=== PATIENT | female | born 2000 | race Caucasian/White ===

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

== ENCOUNTER → 2018-01-02 | Outpatient (CLI) | payer OTHER ==
--- NOTE | 2018-01-02 13:20 | US ---
EXAMINATION TYPE: US pelvic complete DATE OF EXAM: 01/02/2018 COMPARISON: Pelvic ultrasound October 05, 2012 CLINICAL HISTORY: R10.30 LOWER ABD and pelvic PAIN. LLQ pain x 1 day, sharp pain, TECHNIQUE: TA, no TV per patient. Transabdominal sonographic images of the pelvis were acquired. Date of LMP: 12/26/2017 EXAM MEASUREMENTS: Uterus: 8.0 x 4.4 x 3.0 cm Endometrial Stripe: 0.7 cm Right Ovary: 3.6 x 2.6 x 2.1 cm Left Ovary: not seen Limited views due to bowel gas, patient informed her bladder was not as full as we would like it and offered to have to fill more, she declined 1. Uterus: Anteverted wnl 2. Endometrium: wnl 3. Right Ovary: 1.5cm possible involuting cyst seen 4. Left Ovary: not seen due to bowel gas 5. Bilateral Adnexa: wnl 6. Posterior cul-de-sac: wnl scanned RLQ at area of appendix and tubular structure seen was compressible, not enlarged and non v ascular. Transabdominal ultrasound shows no suspicious abnormality. Tubular shaped structure in right lower qu adrant may reflect normal-appearing appendix is felt within normal limits. IMPRESSION: Slightly suboptimal study without suspicious finding seen to account for patient's sympto ms.
[2018-01-02 13:58] LABS: Basophils # (A) 0.1 k/uL (0-0.2); Basophils % (A) 1 %; Eosinophils % (A) 0 %; HGB 14.4 gm/dL (11.4-16.0); Lymphocytes # (A) 1.8 k/uL (1.0-4.8); Lymphocytes % (A) 19 %; MCH 32.4 pg (25.0-35.0); MCHC 34.4 g/dL (31.0-37.0); MCV 94.4 fL (80.0-100.0); Mean Platelet Volume 7.2; Monocytes # (A) 0.4 k/uL (0-1.0); Monocytes % (A) 4 %; Neutrophils # (A) 7.2 k/uL (1.3-7.7); Neutrophils % (A) 75 %; Platelet Count 293 k/uL (150-450); RBC 4.45 m/uL (3.80-5.40); RDW 12.6 % (11.5-15.5); WBC 9.6 k/uL (4.0-11.0)
[2018-01-02 14:08] LABS: ALT 28 U/L (9-52); AST 16 U/L (14-36); Albumin 4.6 g/dL (3.5-5.0); Alkaline Phosphatase 71 U/L (38-126); Anion Gap 14 mmol/L; Blood Urea Nitrogen 9 mg/dL (7-17); Calcium 9.6 mg/dL (8.4-10.2); Carbon Dioxide 20 mmol/L (22-30); Chloride 109 mmol/L (98-107); Glucose 97 mg/dL (74-99); Sodium 143 mmol/L (137-145); Total Bilirubin 0.5 mg/dL (0.2-1.3); Total Protein 7.3 g/dL (6.3-8.2)
== END | disposition home or self-care (01) ==
LOC: RADUSWWP 12:05
PROVIDERS: ATTEND Family Medicine
DX: R93.5 Abnormal findings on diagnostic imaging of other abdominal regions, including retroperitoneum (principal); R10.30 Lower abdominal pain, unspecified
CPT/HCPCS: 36415; 76856; 80053; 85025

== ENCOUNTER 2018-07-18 07:42 | Outpatient (CLI) | payer OTHER ==
[2018-07-18 08:32] VITALS: BP 126/72; PULSE 97; RESP 16; TEMP 97.3
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
== END 2018-07-18 08:10 | disposition home or self-care (01) ==
LOC: FBPOP 07:42
PROVIDERS: ATTEND Obstetrics & Gynecology
DX: O26.892 Other specified pregnancy related conditions, second trimester (principal); G89.11 Acute pain due to trauma; Z3A.22 22 weeks gestation of pregnancy
CPT/HCPCS: 99213

== ENCOUNTER 2018-11-10 20:55 | Inpatient (IN) | payer OTHER ==
[~2018-11-10 20:55] MED LIST: ROPIVACAINE 5MG/ML 20ML VIAL ONE; SODIUM CHLORIDE 0.9% 100 ML BAG ONE; fentaNYL (PF) 50 MCG/ML 5 ML AMP ONE
[2018-11-10] MEDS ORDERED: OXYTOCIN 10 UNIT/ML 1 ML VIAL IM PRN (23:05)
[2018-11-10] MEDS ORDERED: METHYLERGONOVINE 0.2 MG/ML 1 ML AMP IM PRN (23:05)
[2018-11-10] MEDS ORDERED: LIDOCAINE 0.5% (PF) 5 MG/ML (50 ML SDV) SQ PRN (23:05)
[2018-11-10] MEDS ORDERED: CARBOPROST TROMETHAMINE 250 MCG/ML 1 ML AMP IM PRN (23:05)
[2018-11-10] MEDS ORDERED: TERBUTALINE 1 MG/ML VIAL SQ PRN (23:05)
[2018-11-10] MEDS ORDERED: OXYTOCIN 30 UNITS/500 ML NS 30 UNIT in SALINE 1 500ML.BAG IV SCH (23:15)
[2018-11-10 23:16] LABS: Basophils % (A) 0 %; Eosinophils # (A) 0.2 k/uL (0-0.7); Eosinophils % (A) 1 %; HCT 43.9 % (34.0-46.0); HGB 14.4 gm/dL (11.4-16.0); Lymphocytes # (A) 2.6 k/uL (1.0-4.8); Lymphocytes % (A) 15 %; MCH 30.7 pg (25.0-35.0); MCHC 32.9 g/dL (31.0-37.0); MCV 93.4 fL (80.0-100.0); Mean Platelet Volume 7.8; Monocytes # (A) 0.7 k/uL (0-1.0); Monocytes % (A) 4 %; Neutrophils # (A) 13.9 k/uL (1.3-7.7); Neutrophils % (A) 79 %; Platelet Count 292 k/uL (150-450); RDW 14.2 % (11.5-15.5); WBC 17.7 k/uL (4.0-11.0)
[2018-11-10 23:20] VITALS: BMI 36.1
[2018-11-10] MEDS: LACTATED RINGERS 1,000 ML IV SCH ×2 (23:23→23:32)
[2018-11-10] MEDS: BUTORPHANOL 1 MG/ML 1 ML VIAL IV PRN (23:32)
[2018-11-11] MEDS: BUTORPHANOL 1 MG/ML 1 ML VIAL IV PRN (01:38)
[2018-11-11 05:12] LABS: Amphetamine Screen,Urine Not Detected (NotDetected); Barbiturate Screen,Urine Not Detected (NotDetected); Benzodiazepines Screen,Urine Not Detected (NotDetected); Cocaine Screen,Urine Not Detected (NotDetected); Methadone Screen, Urine Not Detected (NotDetected); Opiate Screen,Urine Not Detected (NotDetected); Oxycodone Screen, Urine Not Detected (NotDetected); Phencyclidine Screen,Urine Not Detected (NotDetected); Tricyclic Antidepressant,Urine Not Detected (NotDetected); Urn Cannabinoid Scrn Not Detected (NotDetected)
--- NOTE | 2018-11-11 05:32 | P.HPOB ---
History of Present Illness H&P Date: 11/11/18 Chief Complaint: Rupture of membranes at 39 weeks gestation This is a 17-year-old 1 para 0 woman with an estimated due date of 11/18 based on LMP consistent with second trimester ultrasound. She was sent to labor and delivery triage with irregular contractions. Well in triage she did not demonstrate cervical change however she did have spontaneous rupture of membranes with thin meconium-stained fluid at approximately 10:30 PM on 2018. She then began having on more painful and regular contraction activity. She was 1.5 cm upon admission. heart tones were category 1 on admission. Her has otherwise been unremarkable. She does have a history of HSV and has been on Valtrex throughout the with no prodrome and no new lesions. She also has a history of heroin abuse prior to the but not during the . Laboratory data: Blood type B positive, antibody screen negative, rubella immune , VDRL nonreactive, hepatitis B surface antigen negative, HIV negative, currently 20 cultures negative, group B strep cultures negative, group B strep negative. Review of Systems All systems: negative Past Medical History Past Medical History: No Reported History History of Any Multi-Drug Resistant Organisms: None Reported Past Surgical History: No Surgical Hx Reported Past Anesthesia/Blood Transfusion Reactions: No Reported Reaction Past Psychological History: No Psychological Hx Reported Smoking Status: Former smoker Past Alcohol Use History: None Reported Past Drug Use History: Heroin - Past Family History Mother Family Medical History: No Reported History Medications and Allergies Home Medications Medication Instructions Recorded Confirmed Type Pnv No.95/Ferrous Fum/Folic AC 1 tab PO DAILY 07/18/18 11/10/18 History [ Multivitamin Tablet] valACYclovir HCL [Valtrex] 500 mg PO Q8HR 07/18/18 11/10/18 History Allergies Allergy/AdvReac Type Severity Reaction Status Date / Time amoxicillin Allergy Mild Rash/Hives Verified 11/10/18 21:01 Exam Vital Signs Temp Pulse BP Pulse Ox 11/10/18 23:05 95.3 F L 117 H 122/83 100 Intake and Output 11/10/18 11/10/18 11/11/18 14:59 22:59 06:59 Other: Weight 104.78 kg Upon my initial evaluation, targeted physical exam is performed. The patient has received an epidural anesthetic and is complaining of pelvic pressure. On pelvic examination the cervix is 9 cm dilated, 90% effaced and the vertex is in the 0 station. There is significant amount of At formation noted. heart tones are category 1 and she is shana every 2-4 minutes spontaneously. She has some bloody show Results Result Diagrams: 11/10/18 23:00 Abnormal Lab Results - Last 24 Hours (Table) 11/10/18 Range/Units 23:00 WBC 17.7 H (4.0-11.0) k/uL Neutrophils # 13.9 H (1.3-7.7) k/uL Assessment and Plan (1) 39 weeks gestation of Current Visit: Yes Status: Acute Code(s): Z3A.39 - 39 WEEKS GESTATION OF SNOMED Code(s): 39182727 (2) Meconium in amniotic fluid Current Visit: Yes Status: Acute Code(s): P96.83 - MECONIUM STAINING SNOMED Code(s): 4671099 (3) Spontaneous onset of labor Current Visit: Yes Status: Acute Code(s): RHN3174 - SNOMED Code(s): 36246254 (4) Spontaneous rupture of membranes Current Visit: Yes Status: Acute Code(s): WDZ0938 - SNOMED Code(s): 375423719 Plan: 17-year-old 1 para 0 woman at 39 weeks gestation admitted with spontaneous rupture of membranes and spontaneous onset of labor. She did have light meconium-stained fluid with rupture of membranes. status has been reassuring with category 1 heart tones. She is now 9 cm dilated. Anticipate normal spontaneous vaginal delivery. She is group B strep negative and Rh+.
[2018-11-11] MEDS: LACTATED RINGERS 1,000 ML IV SCH (07:00)
[2018-11-11] MEDS ORDERED: ACETAMINOPHEN TAB 325 MG TAB PO PRN (08:12)
[2018-11-11] MEDS ORDERED: WITCH HAZEL 1 EACH MED..PAD TOPICAL PRN (08:12)
[2018-11-11] MEDS ORDERED: LANOLIN CREAM 5 GM TUBE TOPICAL PRN (08:12)
[2018-11-11] MEDS ORDERED: SIMETHICONE 80 MG CHEWABLE PO PRN (08:12)
[2018-11-11] MEDS ORDERED: HYDROcodone/APAP 5-325MG 1 EACH TAB PO PRN (08:12)
[2018-11-11] MEDS ORDERED: HYDROcodone/APAP 7.5-325MG 1 EACH TAB PO PRN (08:12)
[2018-11-11] MEDS ORDERED: HYDROCORTISONE 2.5% RECTAL CREAM 30 GM TUBE RECTAL PRN (08:12)
[2018-11-11] MEDS ORDERED: diphenhydrAMINE 50 MG CAP PO PRN (08:12)
[2018-11-11] MEDS ORDERED: ZOLPIDEM 5 MG TAB PO PRN (08:12)
[2018-11-11] MEDS ORDERED: diphenhydrAMINE 25 MG CAP PO PRN (08:12)
[2018-11-11] MEDS ORDERED: diphenhydrAMINE 50 MG/ML 1 ML VIAL IVP PRN ×2 (08:12)
[2018-11-11] MEDS ORDERED: BENZOCAINE/MENTHOL SPRAY 1 GM/SPRAY AEROSOL TOPICAL PRN (08:12)
[2018-11-11] MEDS ORDERED: OXYTOCIN 20 UNITS/1000 ML NS 1,000 ML IV SCH (08:15)
--- NOTE | 2018-11-11 08:17 | P.PROBDLV ---
Vaginal Delivery Note - . Vaginal Delivery Note: The patient is a 17-year-old 1 para 0 admitted at 39-0/7 weeks by good dating parameters. She is admitted in early labor with documented spontaneous rupture of membranes. Her has been relatively uncomplicated though she does carry a history of substance abuse but not during the as well as a history of herpes simplex virus for which she has been on prophylaxis for some time. On labor and delivery, she made progress on her own and ultimately had an epidural catheter placed for analgesia. The catheter became dislodged around the time of the onset of pushing. She did progressed ultimately to complete and then pushed over the course of approximately 90-120 minutes to a normal spontaneous vaginal delivery of a viable 8 lbs. 0 oz. baby boy with Apgars of 8 at 1 minute and 9 at 5 minutes delivered in the left occiput anterior position. The placenta was delivered spontaneously, intact, and grossly normal with a grossly normal three-vessel cord which was quite short and inserted approximately 3 cm from the margin of the placental disc. There were no significant lacerations of the perineum, vagina, or cervix. Estimated blood loss for the case is approximately 250 mL. There were no complications. All sponge, instrument, and needle counts were correct. Both mother and infant are resting comfortably in recovery.
[2018-11-11] MEDS: IBUPROFEN 600 MG TAB PO PRN ×3 (08:55→22:12)
[2018-11-11] MEDS ORDERED: ROPIVACAINE 100 MG, fentaNYL (PF) 200 MCG in SODIUM CHLORIDE 0.9% 76 ML EPIDURAL ONE (12:47)
[2018-11-11] MEDS: SENNOSIDES-DOCUSATE SODIUM 1 EACH TAB PO SCH (19:44)
[2018-11-12 00:17] VITALS: RESP 18
[2018-11-12] MEDS: IBUPROFEN 600 MG TAB PO PRN (06:43)
[2018-11-12] MEDS: SENNOSIDES-DOCUSATE SODIUM 1 EACH TAB PO SCH (08:00)
--- NOTE | 2018-11-12 09:01 | P.DS ---
Providers Date of admission: 11/10/18 22:17 Expected date of discharge: 11/12/18 Attending physician: Gabino Aguilar Primary care physician: Stated None - Discharge Diagnosis(es) (1) Normal spontaneous vaginal delivery Current Visit: Yes Status: Acute Hospital Course: The patient is a 17-year-old 1 para 0 admitted at 39 weeks by good dating parameters. She is admitted in active labor with all signs reassuring. She was noted to have documented spontaneous rupture of membranes for thin meconium-stained fluid. She then the antrum progress through labor on her own and ultimately progressed to complete. She pushed to a normal spontaneous vaginal delivery of a viable 8 lbs. 0 oz. baby boy with Apgars of 8 at 1 minute and 9 at 5 it's. Her course was unremarkable vital signs or any stable and her temperature was afebrile throughout. She was deemed stable for discharge on day #1 was discharged home to follow-up in the office in 6 weeks' time routinely. Discharge instructions included calling for any significantly increased bleeding or foul-smelling lochia, significantly increased fever abdominal pain, perineal complaints, breast complaints, or anything else that concerned her. She is additionally instructed to have nothing in the vagina for at least 6 weeks time to include intercourse. She understood all of her instructions and agrees to follow up as noted above. Discharge medications included only [id number]-[id number] analgesic pain medications as well as continued vitamins as she has opted to breast-feed. Maternal blood type is B+ and rubella status is immune. Procedures: #1. Epidural analgesia #2. Normal spontaneous vaginal delivery Patient Condition at Discharge: Good Plan - Discharge Summary New Discharge Prescriptions: No Action valACYclovir HCL [Valtrex] 500 mg PO Q8HR Pnv No.95/Ferrous Fum/Folic AC [ Multivitamin Tablet] 1 tab PO DAILY Discharge Medication List Pnv No.95/Ferrous Fum/Folic AC [ Multivitamin Tablet] 1 tab PO DAILY 07/18/18 [History] valACYclovir HCL [Valtrex] 500 mg PO Q8HR 07/18/18 [History] Follow up Appointment(s)/Referral(s): Gabino Aguilar MD [STAFF PHYSICIAN] - 6 Weeks Discharge Disposition: HOME SELF-CARE
[2018-11-12 11:16] VITALS: BP 140/65; PULSE 106; TEMP 98
== END 2018-11-12 13:10 | disposition home or self-care (01) | DRG 807 ==
LOC: FBPOP 20:55 → 4FBP 22:17
PROVIDERS: ADMIT Obstetrics & Gynecology; ATTEND Obstetrics & Gynecology
PROC: 00HU33Z Insertion of Infusion Device into Spinal Canal, Percutaneous Approach (ICD-10-PCS; 2018-11-10)
PROC: 3E0R3BZ Introduction of Anesthetic Agent into Spinal Canal, Percutaneous Approach (ICD-10-PCS; 2018-11-10)
PROC: 10E0XZZ Delivery of Products of Conception, External Approach (ICD-10-PCS; principal; 2018-11-11)
DX: O77.0 Labor and delivery complicated by meconium in amniotic fluid (principal); Z37.0 Single live birth; F11.11 Opioid abuse, in remission; Z3A.39 39 weeks gestation of pregnancy; Z87.891 Personal history of nicotine dependence; Z86.19 Personal history of other infectious and parasitic diseases; Z79.899 Other long term (current) drug therapy
CPT/HCPCS: 59025; 80306; 84112; 85025; 86850; 86900; 86901; 99213

== ENCOUNTER 2020-06-11 05:59 | Outpatient (CLI) | payer OTHER ==
[2020-06-11 07:17] VITALS: BP 118/75; PULSE 95; RESP 16; TEMP 97.9
--- NOTE | 2020-06-11 11:42 | P.MSEPDOC ---
Presenting Problems - Arrival Data Date of Arrival on Unit: 06/11/20 Time of Arrival on Unit: 05:59 Mode of Transport: Wheelchair - Complaint OB-Reason for Admission/Chief Complaint: Possible Onset of Labor Comment: Patient presents with contractions that started around 2200 this evening approximately 5 minutes apart in duration. Denies leaking of fluid or vaginal bleeding. Medical History - Information : 2 Para: 1 Term: 1 : 0 Abortions: Spontaneous or Elective: 0 Number of Living Children: 1 - Gestational Age Gestational Age by YARELIS (wks/days): 39 Weeks and 0 Days - History Complications: Smoker, Hx. Substance Abuse Sexually Transmitted Diseases: HSV Comment: Outbreaks during , none currently. Vapes and uses THC Review of Systems - Review of Systems Constitutional: No problems Breast: No problems ENT: No problems Cardiovascular: No problems Respiratory: No problems Gastrointestinal: No problems Genitourinary: No problems Musculoskeletal: No problems Neurological: No problems Skin: No problems Vital Signs - Temperature Temperature: 97.9 F Temperature Source: Oral - Pulse Pulse Oximetery Pulse Rate: 95 Pulse Assessment Method: Pulse Oximetry - Respirations Respiratory Rate: 16 Oxygen Delivery Method: Room Air - Blood Pressure Sitting Blood Pressure: 118/75 Blood Pressure Mean: 89 Blood Pressure Source: Automatic Cuff Medical Screen Scoring (Pre) - Cervical Exam Dilation: 1-3 cm = 1 Effacement: More than 50% = 2 Membranes: Intact - Uterine Contractions Frequency: > 5 minutes apart = 1 Duration: N/A Intensity: N/A - Maternal Vital Signs Maternal Temperature: N/A Maternal Blood Pressure: N/A Signs of Preeclampsia: N/A Maternal Respirations: N/A - Maternal Trauma Maternal Trauma: N/A - Assessment - Baby A Baseline FHR: 125 Heart Rate - NICHD Category: Category I (Normal) = 0 NST: Reactive Position: N/A Station: N/A - Total Score - Baby A Total Score - Baby A: 4 - Total Score - Baby B Total Score - Baby B: 4 - Total Score - Baby C Total Score - Baby C: 4 - Level of Risk - Baby A Level of Risk - Baby A: Low (0-5) - Level of Risk - Baby B Level of Risk - Baby B: Low (0-5) - Level of Risk - Baby C Level of Risk - Baby C: Low (0-5) Physician Notification (Pre) - Physician Notified Physician Notified Date: 06/11/20 Physician Notified Time: 07:10 New Order Received: Yes - Notification Comment Comment: Discharge patient home with instructions, Patient to follow up with induction appointment for friday if not before. Disposition - Disposition OB Disposition: Discharge to home, Written follow up instructions reviewed Discharge Date: 06/11/20 Discharge Time: 07:16 I agree with the RN Medical Screening Exam: Yes Risk & Benefit of care provided described in d/c instruction: Yes Diagnosis: FALSE LABOR AT OR AFTER 37 COMPLETED WEEKS OF GESTATION
== END 2020-06-11 07:16 | disposition home or self-care (01) ==
LOC: FBPOP 05:59
PROVIDERS: ATTEND Obstetrics & Gynecology
DX: O47.1 False labor at or after 37 completed weeks of gestation (principal); Z3A.39 39 weeks gestation of pregnancy
CPT/HCPCS: 59025; G0463; 99213

== ENCOUNTER 2020-06-11 16:35 | Inpatient (IN) | payer OTHER ==
[2020-06-11] MEDS ORDERED: TERBUTALINE 1 MG/ML VIAL SQ PRN (17:06)
[2020-06-11] MEDS ORDERED: METHYLERGONOVINE 0.2 MG/ML 1 ML AMP IM PRN (17:06)
[2020-06-11] MEDS ORDERED: LIDOCAINE 0.5% (PF) 5 MG/ML (50 ML SDV) SQ PRN (17:06)
[2020-06-11] MEDS ORDERED: OXYTOCIN 10 UNIT/ML 1 ML VIAL IM PRN (17:06)
[2020-06-11] MEDS ORDERED: CARBOPROST TROMETHAMINE 250 MCG/ML 1 ML AMP IM PRN (17:08)
[2020-06-11] MEDS ORDERED: CLINDAMYCIN 900 MG in DEXTROSE 5% IN WATER 50 ML IVPB STA ×2 (17:08)
[2020-06-11] MEDS ORDERED: LACTATED RINGERS 1,000 ML IV SCH ×2 (17:15)
[2020-06-11 18:03] LABS: Amphetamine Screen,Urine Not Detected (NotDetected); Barbiturate Screen,Urine Not Detected (NotDetected); Benzodiazepines Screen,Urine Not Detected (NotDetected); Cocaine Screen,Urine Not Detected (NotDetected); Methadone Screen, Urine Not Detected (NotDetected); Opiate Screen,Urine Not Detected (NotDetected); Oxycodone Screen, Urine Not Detected (NotDetected); Phencyclidine Screen,Urine Not Detected (NotDetected); Tricyclic Antidepressant,Urine Not Detected (NotDetected); Urn Cannabinoid Scrn Detected (NotDetected)
[2020-06-11] MEDS ORDERED: ROPIVACAINE 5MG/ML 20ML VIAL ONE (18:26)
[2020-06-11] MEDS ORDERED: fentaNYL (PF) 50 MCG/ML 5 ML AMP ONE (18:26)
[2020-06-11] MEDS ORDERED: SODIUM CHLORIDE 0.9% 100 ML BAG ONE (18:26)
--- NOTE | 2020-06-11 21:38 | P.HPOB ---
History of Present Illness H&P Date: 06/11/20 Chief Complaint: 39-0/7 weeks, early active labor The patient is a 19-year-old 2 para 1001 admitted at 39-0/7 weeks as established by 19 week ultrasound. She is admitted in early active labor with all signs reassuring. Her has been uncomplicated though there were some dating issues causing re-dating in the second trimester. Her has been uncomplicated though she does have a history of HSV and has been on prophylaxis with Valtrex since approximately 35 weeks with no recurrences and no active lesions at this time. She is known to be group B strep positive. Obstetrical history: 2 para 1001 with 1 previous normal spontaneous vaginal delivery without complications. Current statistics are listed in history of present illness. EDC of 06/18/2020 was established by second trimester ultrasound. Laboratory workup demonstrates a blood type of A+ with a negative antibody screen. Rubella status is immune. The remainder of the laboratory workup was within normal limits. One hour Glucola is normal and group B strep status is positive. Gynecologic history: Unremarkable though she does have a history of herpes simplex for which she has had 1 or 2 outbreaks during the which were treated and she has been on prophylaxis since approximately 35 weeks with no outbreaks recently. There are no current lesions. Review of Systems Review of systems is confined to history of present illness. Past Medical History Past Medical History: No Reported History History of Any Multi-Drug Resistant Organisms: None Reported Past Surgical History: Tonsillectomy Past Anesthesia/Blood Transfusion Reactions: Postoperative Nausea & Vomiting (PONV) Past Psychological History: No Psychological Hx Reported Smoking Status: Vaper Past Alcohol Use History: None Reported Past Drug Use History: Marijuana - Past Family History Mother Family Medical History: No Reported History Medications and Allergies Home Medications Medication Instructions Recorded Confirmed Type RX: Pnv No.95/Ferrous Fum/Folic AC 1 tab PO DAILY 07/18/18 06/11/20 History [ Multivitamin Tablet] valACYclovir HCL [Valtrex] 500 mg PO TID 07/18/18 06/11/20 History Escitalopram [Lexapro] 20 mg PO DAILY 06/11/20 06/11/20 History Allergies Allergy/AdvReac Type Severity Reaction Status Date / Time amoxicillin Allergy Mild Rash/Hives Verified 06/11/20 06:13 Exam Vital Signs Temp Pulse Resp BP Pulse Ox 06/11/20 17:05 96.2 F L 98 18 125/80 96 06/11/20 16:53 96.2 F L 98 18 125/80 96 Intake and Output 06/11/20 06/11/20 06/11/20 06:59 14:59 22:59 Other: Weight 110.677 kg In general, this is a well-developed, well-nourished white female in no acute distress. Her heart has a regular rhythm and rate without murmur. Her lungs are clear to auscultation bilaterally in all quinteros. Her abdomen is gravid, nondistended, has normal active bowel sounds, is soft, nontender, and without any palpable masses aside from uterine fundus. Her extremities are without any cyanosis, clubbing, or significant edema and are nontender to palpation bilaterally. Digital cervical examination demonstrates her cervix to be approximately 8 cm dilated, 80% effaced, the vertex in presentation at -2 station. Artificial rupture of membranes is carried out demonstrating light to moderately meconium-stained fluid. Results Abnormal Lab Results - Last 24 Hours (Table) 06/11/20 Range/Units 17:37 U Marijuana (THC) Screen Detected H (NotDetected) Assessment and Plan (1) 39 weeks gestation of Current Visit: Yes Status: Acute Code(s): Z3A.39 - 39 WEEKS GESTATION OF SNOMED Code(s): 81753785 (2) Meconium in amniotic fluid Current Visit: Yes Status: Acute Code(s): P96.83 - MECONIUM STAINING SNOMED Code(s): 6341566 (3) Spontaneous onset of labor Current Visit: Yes Status: Acute Code(s): YAU1793 - SNOMED Code(s): 93093776 Plan: The patient is admitted for active management of labor. She will continue to have close maternal and surveillance and expectant management will be practiced. An epidural catheter has been placed for analgesia. The nurse registered nurse fetal will be in attendance at delivery for meconium-stained fluid. I would anticipate normal spontaneous vaginal delivery in the near future.
[2020-06-11] MEDS ORDERED: OXYTOCIN 30 UNITS/500 ML NS 30 UNIT in SALINE 1 500ML.BAG IV SCH (22:30)
[2020-06-11] MEDS ORDERED: diphenhydrAMINE 50 MG CAP PO PRN (23:15)
[2020-06-11] MEDS ORDERED: diphenhydrAMINE 50 MG/ML 1 ML VIAL IVP PRN ×2 (23:15)
[2020-06-11] MEDS ORDERED: SIMETHICONE 80 MG CHEWABLE PO PRN (23:15)
[2020-06-11] MEDS ORDERED: HYDROCORTISONE 2.5% RECTAL CREAM 30 GM TUBE RECTAL PRN (23:15)
[2020-06-11] MEDS ORDERED: OXYTOCIN 20 UNITS/1000 ML NS 1,000 ML IV SCH (23:15)
[2020-06-11] MEDS ORDERED: BENZOCAINE/MENTHOL SPRAY 1 GM/SPRAY AEROSOL TOPICAL PRN (23:15)
[2020-06-11] MEDS ORDERED: HYDROcodone/APAP 7.5-325MG 1 EACH TAB PO PRN (23:15)
[2020-06-11] MEDS ORDERED: diphenhydrAMINE 25 MG CAP PO PRN (23:15)
[2020-06-11] MEDS ORDERED: ZOLPIDEM 5 MG TAB PO PRN (23:15)
[2020-06-11] MEDS ORDERED: LANOLIN CREAM 5 GM TUBE TOPICAL PRN (23:15)
[2020-06-11] MEDS ORDERED: ACETAMINOPHEN TAB 325 MG TAB PO PRN (23:15)
[2020-06-11] MEDS ORDERED: HYDROcodone/APAP 5-325MG 1 EACH TAB PO PRN (23:15)
--- NOTE | 2020-06-11 23:18 | P.PROBDLV ---
Vaginal Delivery Note - . Vaginal Delivery Note: The patient is a 19-year-old 2 para 1001 admitted at 39-0/7 weeks by good dating parameters in active labor with all signs reassuring. Her has been uncomplicated and group B strep status is positive. As result, she had antibiotic prophylaxis started and, after 4 hours following the initial infusion of antibiotics, underwent artificial rupture of membranes for light to moderately meconium-stained fluid. She then had Pitocin augmentation started a nd progressed quickly to complete where after she pushed over the course of approximately 2 contractions to a normal spontaneous vaginal delivery of a viable 6 lbs. 13 oz. baby boy with Apgars of 9 at 1 minute and 9 at 5 minutes delivered in the direct occiput anterior position. There were 2 nuchal cords which were reduced following delivery of the infant. The placenta was delivered spontaneously, intact, and grossly normal with a grossly normal, centrally inserted three-vessel cord. There are no significant lacerations of the perineum, vagina, or cervix. Estimated blood loss for the case is approximately 100 mL. There were no complications. All sponge, instrument, and needle counts were correct. Both mother and infant are resting comfortably in recovery.
[2020-06-11] MEDS: IBUPROFEN 600 MG TAB PO PRN (23:28)
[2020-06-12] MEDS ORDERED: INFLUENZA VACCINE (6 MOS+) 60 MCG/0.5 ML SYRINGE IM ONE (00:11)
[2020-06-12] MEDS ORDERED: CLINDAMYCIN 900 MG in DEXTROSE 5% IN WATER 50 ML IVPB SCH ×2 (01:09)
[2020-06-12] MEDS: IBUPROFEN 600 MG TAB PO PRN ×3 (07:00→19:33)
[2020-06-12 08:34] LABS: Basophils % (A) 0 %; Eosinophils # (A) 0.1 k/uL (0-0.7); Eosinophils % (A) 0 %; HGB 12.3 gm/dL (11.4-16.0); Lymphocytes # (A) 2.4 k/uL (1.0-4.8); Lymphocytes % (A) 12 %; MCH 30.7 pg (25.0-35.0); MCHC 33.3 g/dL (31.0-37.0); MCV 92.3 fL (80.0-100.0); Monocytes % (A) 5 %; Neutrophils # (A) 15.8 k/uL (1.3-7.7); Neutrophils % (A) 82 %; Platelet Count 286 k/uL (150-450); RDW 13.3 % (11.5-15.5); WBC 19.4 k/uL (3.8-10.6)
[2020-06-12] MEDS: SENNOSIDES-DOCUSATE SODIUM 1 EACH TAB PO SCH ×2 (08:34→19:33)
--- NOTE | 2020-06-12 08:39 | P.PNOBGVD ---
Subjective - Subjective Patient reports: Reports appetite normal, Reports voiding normally, Reports pain well controlled, Reports ambulating normally : doing well Objective - Latest Vital Signs Latest vital signs: Vital Signs Temp Pulse Resp BP Pulse Ox 06/12/20 08:00 97.4 F L 89 15 124/83 98 06/12/20 04:00 98.2 F 108 H 16 133/72 06/12/20 01:15 98.0 F 92 16 126/73 06/12/20 00:45 82 16 131/63 06/12/20 00:15 93 16 121/79 06/12/20 00:00 94 16 133/72 06/11/20 23:45 90 16 130/65 06/11/20 23:30 103 H 16 137/68 06/11/20 23:15 97.8 F 94 16 138/68 06/11/20 17:05 96.2 F L 98 18 125/80 96 06/11/20 16:53 96.2 F L 98 18 125/80 96 Intake and Output 06/11/20 06/12/20 06/12/20 22:59 06:59 14:59 Output Total 100 Balance -100 Output: Estimated Blood Loss 100 Other: # Voids 1 1 1 Weight 110.677 kg - Exam Extremities: Present: normal Abdomen: Present: normal appearance, soft Uterus: Present: normal, firm - Labs Labs: Abnormal Lab Results - Last 24 Hours (Table) 06/11/20 06/12/20 Range/Units 17:37 07:34 WBC 19.4 H (3.8-10.6) k/uL Neutrophils # 15.8 H (1.3-7.7) k/uL U Marijuana (THC) Screen Detected H (NotDetected) Assessment and Plan (1) 39 weeks gestation of Current Visit: Yes Status: Acute Code(s): Z3A.39 - 39 WEEKS GESTATION OF SNOMED Code(s): 94640059 (2) Meconium in amniotic fluid Current Visit: Yes Status: Acute Code(s): P96.83 - MECONIUM STAINING SNOMED Code(s): 3116976 (3) Spontaneous onset of labor Current Visit: Yes Status: Acute Code(s): PKJ1741 - SNOMED Code(s): 83192865 (4) Normal spontaneous vaginal delivery Current Visit: No Status: Acute Code(s): O80 - ENCOUNTER FOR FULL-TERM UNCOMPLICATED DELIVERY SNOMED Code(s): 70750149 Plan: Given the late hour for delivery last night, the patient has opted to remain in the hospital until tomorrow morning. She will continue to have routine care in anticipation of discharge home in the morning. I have strongly encouraged her to ambulate in the hallways. Circumcision will be carried out at the earliest possible convenient time.
[2020-06-12 15:56] VITALS: RESP 16
[2020-06-13 01:37] VITALS: PULSE 79
[2020-06-13] MEDS: IBUPROFEN 600 MG TAB PO PRN ×2 (03:00→09:04)
[2020-06-13 08:32] VITALS: BP 124/80; TEMP 98.6
[2020-06-13] MEDS: SENNOSIDES-DOCUSATE SODIUM 1 EACH TAB PO SCH (09:04)
--- NOTE | 2020-06-13 10:27 | P.DS ---
Providers Date of admission: 06/11/20 17:04 Expected date of discharge: 06/13/20 Attending physician: Gabino Aguilar Primary care physician: Stated None - Discharge Diagnosis(es) (1) 39 weeks gestation of Current Visit: Yes Status: Acute (2) Meconium in amniotic fluid Current Visit: Yes Status: Acute (3) Spontaneous onset of labor Current Visit: Yes Status: Acute (4) Normal spontaneous vaginal delivery Current Visit: No Status: Acute Hospital Course: The patient is a 19-year-old 2 para 1001 admitted at 39-0/7 weeks by good dating parameters in early active labor with all signs reassuring. Her has been uncomplicated and group B strep status is positive. 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 On labor and delivery, she had an epidural catheter placed for analgesia after antibiotic prophylaxis have been started. 4 hours following the first dose of antibiotics, artificial rupture of membranes is carried out demonstrating clear fluid. She then had a small amount of Pitocin augmentation started and progressed to complete where after she pushed quickly to a normal spontaneous vaginal delivery of a viable 6 lbs. 13 oz. baby boy with Apgars of 8 at 1 minute and 9 at 5 minutes. Her course was unremarkable vital signs remained stable and her temperature was afebrile throughout. She was deemed stable for discharge on day #2 and was discharged home to follow-up in the office in 6 weeks' time routinely. Discharge instructions included calling for any significantly increased bleeding or foul-smelling lochia, significantly increased fever abdominal pain, perineal complaints, breast complaints, or anything else that concerned her. She was additionally instructed to have nothing in the vagina for at least 6 weeks time to include intercourse. She understood all of her instructions and agrees to follow up as noted above. Discharge medications included only uoyo-kzr-lyghbow analgesic pain medications and she was encouraged continued use vitamins though she is not breast-feeding. Maternal blood type is A+ and rubella status is immune. Procedures: #1. Antibody prophylaxis #2. Epidural analgesia 3. Artificial rupture of membranes #4. Pitocin augmentation #5. Normal spontaneous vaginal delivery Patient Condition at Discharge: Stable Plan - Discharge Summary New Discharge Prescriptions: No Action valACYclovir HCL [Valtrex] 500 mg PO TID Pnv No.95/Ferrous Fum/Folic AC [ Multivitamin Tablet] 1 tab PO DAILY Escitalopram [Lexapro] 20 mg PO DAILY Discharge Medication List Pnv No.95/Ferrous Fum/Folic AC [ Multivitamin Tablet] 1 tab PO DAILY 07/18/18 [History] valACYclovir HCL [Valtrex] 500 mg PO TID 07/18/18 [History] Escitalopram [Lexapro] 20 mg PO DAILY 06/11/20 [History] Follow up Appointment(s)/Referral(s): Gabino Aguilar MD [STAFF PHYSICIAN] - 6 Weeks Discharge Disposition: HOME SELF-CARE
== END 2020-06-13 11:40 | disposition home or self-care (01) | DRG 806 ==
LOC: FBPOP 16:35 → 4FBP 17:04
PROVIDERS: ADMIT Obstetrics & Gynecology; ATTEND Obstetrics & Gynecology
PROC: 10E0XZZ Delivery of Products of Conception, External Approach (ICD-10-PCS; principal; 2020-06-11)
PROC: 10907ZC Drainage of Amniotic Fluid, Therapeutic from Products of Conception, Via Natural or Artificial Opening (ICD-10-PCS; 2020-06-11)
PROC: 3E0R3BZ Introduction of Anesthetic Agent into Spinal Canal, Percutaneous Approach (ICD-10-PCS; 2020-06-11)
DX: O69.81X0 Labor and delivery complicated by cord around neck, without compression, not applicable or unspecified (principal); O98.52 Other viral diseases complicating childbirth; Z37.0 Single live birth; O99.824 Streptococcus B carrier state complicating childbirth; B00.9 Herpesviral infection, unspecified; Z3A.39 39 weeks gestation of pregnancy; O77.0 Labor and delivery complicated by meconium in amniotic fluid; Z79.899 Other long term (current) drug therapy; Z88.0 Allergy status to penicillin
CPT/HCPCS: 59025; 80306; 85025; 86850; 86900; 86901; 90471; 90686; 99213

== ENCOUNTER 2021-01-21 23:21 | Emergency (ER) | payer OTHER ==
[2021-01-21 23:27] VITALS: TEMP 97.9
[2021-01-22 00:21] LABS: Basophils # (A) 0.1 k/uL (0-0.2); Basophils % (A) 1 %; Eosinophils # (A) 0.2 k/uL (0-0.7); Eosinophils % (A) 2 %; HCT 40.7 % (34.0-46.0); HGB 13.8 gm/dL (11.4-16.0); Lymphocytes # (A) 2.1 k/uL (1.0-4.8); Lymphocytes % (A) 18 %; MCH 31.7 pg (25.0-35.0); MCV 93.3 fL (80.0-100.0); Mean Platelet Volume 7.2; Monocytes # (A) 0.6 k/uL (0-1.0); Monocytes % (A) 5 %; Neutrophils # (A) 8.4 k/uL (1.3-7.7); Neutrophils % (A) 73 %; Platelet Count 298 k/uL (150-450); RBC 4.36 m/uL (3.80-5.40); RDW 12.3 % (11.5-15.5); WBC 11.6 k/uL (3.8-10.6)
[2021-01-22] MEDS ORDERED: ACET/COD 300 MG/30 MG STARTER PACK 6 TAB BTL PO STA (00:23)
[2021-01-22 00:38] LABS: ALT 20 U/L (4-34); AST 27 U/L (14-36); African American GFR (CKD) >90 (>60 ml/min/1.73 sqM); Albumin 4.8 g/dL (3.5-5.0); Alkaline Phosphatase 74 U/L (38-126); Anion Gap 9 mmol/L; Blood Urea Nitrogen 9 mg/dL (7-17); Calcium 9.9 mg/dL (8.4-10.2); Carbon Dioxide 25 mmol/L (22-30); Chloride 105 mmol/L (98-107); Glucose 97 mg/dL (74-99); Non-African American GFR(CKD) >90 (>60 ml/min/1.73 sqM); Sodium 139 mmol/L (137-145); Total Bilirubin 0.7 mg/dL (0.2-1.3); Total Protein 7.7 g/dL (6.3-8.2)
[2021-01-22 01:02] LABS: Potassium 3.9 mmol/L (3.5-5.1)
--- NOTE | 2021-01-22 01:17 | US ---
EXAM: US Pelvis Transvaginal CLINICAL HISTORY: ITS.REASON US Reason: discharge, check IUD placement TECHNIQUE: Real-time transvaginal pelvic ultrasound with image documentation. Transvaginal imaging was used for better evaluation of the endometrium and adnexa. COMPARISON: Ultrasound dated 01/02/2018 FINDINGS: Uterus/cervix: Uterus measures 8.2 x 5.2 x 4.1 cm. IUD noted within endometrium. Endometrial stripe measures up to 4 mm. No myometrial mass. Right ovary: Right ovary measures 3.2 x 1.8 x 1.6 cm. Normal blood flow. Left ovary: Left ovary measures 3.4 x 1.9 x 1.9 cm. Normal blood flow. Free fluid: No free fluid. IMPRESSION: IUD appears to be in appropriate position within endometrium.
--- NOTE | 2021-01-22 01:24 | ED ---
Female Urogenital HPI - General Chief complaint: Urogenital Stated complaint: IUD out of place Time Seen by Provider: 01/21/21 23:28 Source: patient Mode of arrival: ambulatory Limitations: no limitations - History of Present Illness Initial comments: 20yo female presnting for lesion. pt states she has ulcer/herpes on her vagina that is not going away with valtrex. pt states that she has a new area that hurts near vagina opening. she wasnt sure if her IUD was misplaced and poking her. denies abdominal pain, nausesa, vomiting, fevers, concern STI, vaginal bleeding, . Patient states that she also for year had "folliculitis" pimple like lesions/on body and has been on doxycycline for over 3 months. Just ended RX a few days ago. 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 Patient denies additional complaints. upon arrival she appears nontoxic. - Related Data Home Medications Medication Instructions Recorded Confirmed Pnv No.95/Ferrous Fum/Folic AC 1 tab PO DAILY 07/18/18 06/11/20 [ Multivitamin Tablet] valACYclovir HCL [Valtrex] 500 mg PO TID 07/18/18 06/11/20 Escitalopram [Lexapro] 20 mg PO DAILY 06/11/20 06/11/20 Previous Rx's Medication Instructions Recorded predniSONE 50 mg PO DAILY 3 Days #3 tab 01/22/21 valACYclovir HCL [Valtrex] 1,000 mg PO Q12HR 7 Days #14 tab 01/22/21 Allergies Allergy/AdvReac Type Severity Reaction Status Date / Time amoxicillin Allergy Mild Rash/Hives Verified 01/21/21 23:23 Review of Systems ROS Statement: Those systems with pertinent positive or pertinent negative responses have been documented in the HPI. ROS Other: All systems not noted in ROS Statement are negative. Past Medical History Past Medical History: No Reported History History of Any Multi-Drug Resistant Organisms: None Reported Past Surgical History: Tonsillectomy Past Anesthesia/Blood Transfusion Reactions: Postoperative Nausea & Vomiting (PONV) Past Psychological History: No Psychological Hx Reported Smoking Status: Current every day smoker, Vaper Past Alcohol Use History: Occasional Past Drug Use History: Marijuana - Past Family History Mother Family Medical History: No Reported History General Exam - General Exam Comments Initial Comments: General: The patient is awake and alert, in no distress, and does not appear acutely ill. Eye: Pupils are equal, round and reactive to light, extra-ocular movements are intact. No nystagmus. There is normal conjunctiva bilaterally. No signs of icterus. Ears, nose, mouth and throat: There are moist mucous membranes and no oral lesions. Neck: The neck is supple, there is no tenderness or JVD. Cardiovascular: There is a regular rate and rhythm. No murmur, rub or gallop is appreciated. Respiratory: Lungs are clear to auscultation, respirations are non-labored, breath sounds are equal. No wheezes, stridor, rales, or rhonchi. Gastrointestinal: Soft, non-distended, non-tender abdomen without masses or organomegaly noted. There is no rebound or guarding present. : no cervical motion or adnexal tenderness, scant discharge in vault. strings coming from os-appear black. ulceration on vagina (labia majora left-been there for "months") and a new ulceration on labia minora near introitus a tthe 4-5o clock position. no lumps/abscess/cysts noted. Musculoskeletal: Normal ROM, no tenderness. Strength 5/5. Sensation intact. Pulses equal bilaterally 2+. Neurological: A&O x 3. CN II-XII intact grossly, There are no obvious motor or sensory deficits. Coordination appears grossly intact. Speech is normal. Skin: Skin is warm and dry. sabbed lesion on forehead, on buttock, on legs. random distribution. Psychiatric: Cooperative, appropriate mood & affect, normal judgment. Limitations: no limitations Course Vital Signs 01/21/21 23:23 Temperature 97.9 F Pulse Rate 96 Respiratory 18 Rate Blood Pressure 129/86 O2 Sat by Pulse 100 Oximetry Medical Decision Making - Medical Decision Making 20yo female presenting for cc of vaginal lesion. hx of herpes. valtrex not working. pt state she has scabbing and "foliculitis" lesions chronically for years. admits to chronic headaches. she states she has had eye involvement before. I did have some level fo suspicion givne chronicity of pt symptoms for behcets. i recommended rheumatology f/u. provided Dr Moscoso name, pt is to see OBGYN and pcp/ increased valtrex dose and placed pt on short coarse of steroids. pt IUD appear to in an appropriate position. no clinical findings suggestive of PID at this time. pt case discussed with Dr stephen who is agreeable to care plan and discharge. - Lab Data Result diagrams: 01/21/21 23:54 01/21/21 23:54 Lab Results 01/21/21 01/21/21 01/21/21 Range/Units 23:54 23:54 23:54 WBC 11.6 H (3.8-10.6) k/uL RBC 4.36 (3.80-5.40) m/uL Hgb 13.8 (11.4-16.0) gm/dL Hct 40.7 (34.0-46.0) % MCV 93.3 (80.0-100.0) fL MCH 31.7 (25.0-35.0) pg MCHC 34.0 (31.0-37.0) g/dL RDW 12.3 (11.5-15.5) % Plt Count 298 (150-450) k/uL MPV 7.2 Neutrophils % 73 % Lymphocytes % 18 % Monocytes % 5 % Eosinophils % 2 % Basophils % 1 % Neutrophils # 8.4 H (1.3-7.7) k/uL Lymphocytes # 2.1 (1.0-4.8) k/uL Monocytes # 0.6 (0-1.0) k/uL Eosinophils # 0.2 (0-0.7) k/uL Basophils # 0.1 (0-0.2) k/uL Sodium 139 (137-145) mmol/L Potassium 3.9 (3.5-5.1) mmol/L Chloride 105 (98-107) mmol/L Carbon Dioxide 25 (22-30) mmol/L Anion Gap 9 mmol/L BUN 9 (7-17) mg/dL Creatinine 0.55 (0.52-1.04) mg/dL Est GFR (CKD-EPI)AfAm >90 (>60 ml/min/1.73 sqM) Est GFR (CKD-EPI)NonAf >90 (>60 ml/min/1.73 sqM) Glucose 97 (74-99) mg/dL Calcium 9.9 (8.4-10.2) mg/dL Total Bilirubin 0.7 (0.2-1.3) mg/dL AST 27 (14-36) U/L ALT 20 (4-34) U/L Alkaline Phosphatase 74 (38-126) U/L Total Protein 7.7 (6.3-8.2) g/dL Albumin 4.8 (3.5-5.0) g/dL Urine HCG, Qual (Not Detectd) Trichomonas Ag (Rapid) Negative (Negative) 01/22/21 Range/Units 00:46 WBC (3.8-10.6) k/uL RBC (3.80-5.40) m/uL Hgb (11.4-16.0) gm/dL Hct (34.0-46.0) % MCV (80.0-100.0) fL MCH (25.0-35.0) pg MCHC (31.0-37.0) g/dL RDW (11.5-15.5) % Plt Count (150-450) k/uL MPV Neutrophils % % Lymphocytes % % Monocytes % % Eosinophils % % Basophils % % Neutrophils # (1.3-7.7) k/uL Lymphocytes # (1.0-4.8) k/uL Monocytes # (0-1.0) k/uL Eosinophils # (0-0.7) k/uL Basophils # (0-0.2) k/uL Sodium (137-145) mmol/L Potassium (3.5-5.1) mmol/L Chloride (98-107) mmol/L Carbon Dioxide (22-30) mmol/L Anion Gap mmol/L BUN (7-17) mg/dL Creatinine (0.52-1.04) mg/dL Est GFR (CKD-EPI)AfAm (>60 ml/min/1.73 sqM) Est GFR (CKD-EPI)NonAf (>60 ml/min/1.73 sqM) Glucose (74-99) mg/dL Calcium (8.4-10.2) mg/dL Total Bilirubin (0.2-1.3) mg/dL AST (14-36) U/L ALT (4-34) U/L Alkaline Phosphatase (38-126) U/L Total Protein (6.3-8.2) g/dL Albumin (3.5-5.0) g/dL Urine HCG, Qual Not Detected (Not Detectd) Trichomonas Ag (Rapid) (Negative) Disposition Clinical Impression: Vaginal ulcer, Skin lesion Disposition: HOME SELF-CARE Condition: Good Instructions (If sedation given, give patient instructions): Behcet Syndrome (ED) Additional Instructions: Please use medication as discussed. Please follow-up with family doctor in the next 2 days, recommend outpatient rheumatology evaluation, return for increasing pain. Please return to emergency room if the symptoms increase or worsen or for any other concerns. Prescriptions: predniSONE 50 mg PO DAILY 3 Days #3 tab valACYclovir HCL [Valtrex] 1,000 mg PO Q12HR 7 Days #14 tab Is patient prescribed a controlled substance at d/c from ED?: No Referrals: Blanco Torres MD [Primary Care Provider] - 1-2 days Gabino Aguilar MD [STAFF PHYSICIAN] - 1-2 days Time of Disposition: 01:23
[2021-01-22 01:47] VITALS: BP 120/81; PULSE 86; RESP 16
[2021-01-22 09:51] LABS: Rheumatoid Factor, Qnt 7 IU/mL (0-15)
[2021-01-23 15:45] LABS: C. trachomatis,PCR Negative (Neg,Equiv); Chlamydia trachomatis Source Vagina; N. gonorrhoeae,PCR Negative (Neg,Equiv); Neisseria Source Vagina
== END 2021-01-22 01:41 | disposition home or self-care (01) ==
LOC: EC 23:21
DX: N76.5 Ulceration of vagina (principal); L98.9 Disorder of the skin and subcutaneous tissue, unspecified; F17.200 Nicotine dependence, unspecified, uncomplicated; Z79.52 Long term (current) use of systemic steroids
CPT/HCPCS: 36415; 76830; 80053; 81025; 85025; 86431; 87070; 87491; 87529; 87591; 87808; 93975; 99284

== ENCOUNTER 2021-02-12 12:04 | Emergency (ER) | payer OTHER ==
[2021-02-12 12:12] VITALS: BP 123/86; PULSE 109; RESP 20; TEMP 98.2
[2021-02-12] MEDS ORDERED: fentaNYL (PF) 50 MCG/ML 2 ML AMP IVP STA (12:27)
[2021-02-12] MEDS ORDERED: methylPREDNISolone SOD SUCCI 125 MG/2 ML VIAL IM ONE (12:58)
--- NOTE | 2021-02-12 13:30 | ED ---
General Adult HPI - General Chief complaint: Neuro Symptoms/Deficit Stated complaint: numbness all over Time Seen by Provider: 02/12/21 12:16 Source: patient, EMS Mode of arrival: EMS Limitations: no limitations - Related Data Home Medications Medication Instructions Recorded Confirmed Pnv No.95/Ferrous Fum/Folic AC 1 tab PO DAILY 07/18/18 06/11/20 [ Multivitamin Tablet] valACYclovir HCL [Valtrex] 500 mg PO TID 07/18/18 06/11/20 Escitalopram [Lexapro] 20 mg PO DAILY 06/11/20 06/11/20 Previous Rx's Medication Instructions Recorded predniSONE 50 mg PO DAILY 3 Days #3 tab 01/22/21 valACYclovir HCL [Valtrex] 1,000 mg PO Q12HR 7 Days #14 tab 01/22/21 predniSONE 50 mg PO DAILY 2 Days #2 tab 01/25/21 Allergies Allergy/AdvReac Type Severity Reaction Status Date / Time amoxicillin Allergy Mild Rash/Hives Verified 01/21/21 23:23 Review of Systems ROS Statement: Those systems with pertinent positive or pertinent negative responses have been documented in the HPI. ROS Other: All systems not noted in ROS Statement are negative. Past Medical History Past Medical History: No Reported History History of Any Multi-Drug Resistant Organisms: None Reported Past Surgical History: Tonsillectomy Past Anesthesia/Blood Transfusion Reactions: Postoperative Nausea & Vomiting (PONV) Smoking Status: Current every day smoker, Vaper Past Alcohol Use History: Occasional Past Drug Use History: Marijuana - Past Family History Mother Family Medical History: No Reported History General Exam Limitations: no limitations Course Vital Signs 02/12/21 12:06 Temperature 98.2 F Pulse Rate 109 H Respiratory 20 Rate Blood Pressure 123/86 O2 Sat by Pulse 99 Oximetry Disposition Clinical Impression: Paresthesia, Skin lesions, generalized Disposition: HOME SELF-CARE Condition: Stable Additional Instructions: Follow with your iuss acoustic analyst tomorrow, be sure to tell her you received steroids today because this could change your blood work Is patient prescribed a controlled substance at d/c from ED?: No Referrals: Blanco Torres MD [Primary Care Provider] - 1-2 days
== END 2021-02-12 13:52 | disposition home or self-care (01) ==
LOC: EC 12:04
DX: R20.2 Paresthesia of skin (principal); L98.9 Disorder of the skin and subcutaneous tissue, unspecified; R20.0 Anesthesia of skin; F17.290 Nicotine dependence, other tobacco product, uncomplicated; F12.90 Cannabis use, unspecified, uncomplicated
CPT/HCPCS: 99284; 96372; J2930

== ENCOUNTER 2021-03-14 | Emergency (ER) | payer OTHER | END 2021-03-14 12:41 | disposition home or self-care (01) | CPT/HCPCS: 99282 ==

== ENCOUNTER 2021-03-14 17:21 | Inpatient (IN) | payer OTHER, MEDICAID ==
--- NOTE | 2021-03-14 18:43 | ED ---
Psych HPI - General Source: patient, RN notes reviewed Mode of arrival: ambulatory <Meet Calabrese - Last Filed: 03/14/21 19:47> <David Leavitt - Last Filed: 03/14/21 20:04> - General Chief Complaint: Psychiatric Symptoms Stated Complaint: Petition/Mental Health Time Seen by Provider: 03/14/21 17:29 - History of Present Illness Initial Comments: This a 20-year-old female presents emergency Department with multiple complaints. Patient is primarily here for psychiatric evaluation. Patient's been having very bizarre behavior, worsening symptoms over the last several months. Patient has been petition. Patient denies any drug or alcohol use. Patient denies being depressed or suicidal. (Meet Calabrese) - Related Data Home Medications Medication Instructions Recorded Confirmed Escitalopram [Lexapro] 20 mg PO DAILY 06/11/20 03/14/21 Phentermine HCl [Adipex-P] 37.5 mg PO DAILY 03/14/21 03/14/21 Rizatriptan Benzoate [Rizatriptan] 10 mg PO DAILY PRN 03/14/21 03/14/21 valACYclovir HCL [Valtrex] 1,000 mg PO DAILY 03/14/21 03/14/21 Previous Rx's Medication Instructions Recorded predniSONE 50 mg PO DAILY 3 Days #3 tab 01/22/21 Allergies Allergy/AdvReac Type Severity Reaction Status Date / Time amoxicillin Allergy Mild Rash/Hives Verified 03/14/21 18:05 Review of Systems ROS Other: All systems not noted in ROS Statement are negative. <Meet Calabrese - Last Filed: 03/14/21 19:47> ROS Other: All systems not noted in ROS Statement are negative. <David Leavitt - Last Filed: 03/14/21 20:04> ROS Statement: Those systems with pertinent positive or pertinent negative responses have been documented in the HPI. Past Medical History Past Medical History: No Reported History History of Any Multi-Drug Resistant Organisms: None Reported Past Surgical History: Tonsillectomy Past Anesthesia/Blood Transfusion Reactions: Postoperative Nausea & Vomiting (PONV) Past Psychological History: Anxiety, Depression Smoking Status: Vaper Past Alcohol Use History: None Reported Past Drug Use History: Marijuana - Past Family History Mother Family Medical History: No Reported History <Meet Calabrese - Last Filed: 03/14/21 19:47> General Exam Limitations: no limitations General appearance: alert, in no apparent distress Head exam: Present: atraumatic, normocephalic, normal inspection Eye exam: Present: normal appearance, PERRL, EOMI. Absent: scleral icterus, conjunctival injection, periorbital swelling ENT exam: Present: normal exam, normal oropharynx, mucous membranes moist Neck exam: Present: normal inspection, full ROM. Absent: tenderness, meningismus, lymphadenopathy Respiratory exam: Present: normal lung sounds bilaterally. Absent: respiratory distress, wheezes, rales, rhonchi, stridor Cardiovascular Exam: Present: regular rate, normal rhythm, normal heart sounds. Absent: systolic murmur, diastolic murmur, rubs, gallop, clicks Neurological exam: Present: alert Skin exam: Present: warm, dry, intact, normal color. Absent: rash <Meet Calabrese - Last Filed: 03/14/21 19:47> Course <David Leavitt - Last Filed: 03/14/21 20:04> Vital Signs 03/14/21 17:25 Temperature 98 F Pulse Rate 111 H Respiratory 18 Rate Blood Pressure 112/74 O2 Sat by Pulse 98 Oximetry - Reevaluation(s) Reevaluation #1: 03/14/21 20:03 Evaluation done by tn clinical certification plate. (David Leavitt) Medical Decision Making <Meet Calabrese - Last Filed: 03/14/21 19:47> - Medical Decision Making Patient value right EPS patiently admitted for psychiatric treatment. (Meet Jacob) Disposition <Meet Calabrese - Last Filed: 03/14/21 19:47> <David Leavitt - Last Filed: 03/14/21 20:04> Clinical Impression: Psychosis Disposition: TRANSFER TO PSYCH HOSP/UNIT Condition: Stable Referrals: None,Stated [Primary Care Provider] - 1-2 days
[2021-03-14 20:09] LABS: Basophils % (A) 0 %; Eosinophils % (A) 0 %; HCT 41.9 % (34.0-46.0); HGB 14.2 gm/dL (11.4-16.0); Lymphocytes % (A) 10 %; MCH 32.3 pg (25.0-35.0); MCHC 33.9 g/dL (31.0-37.0); MCV 95.2 fL (80.0-100.0); Mean Platelet Volume 6.4; Monocytes # (A) 0.3 k/uL (0-1.0); Monocytes % (A) 3 %; Neutrophils # (A) 8.5 k/uL (1.3-7.7); Neutrophils % (A) 85 %; Platelet Count 346 k/uL (150-450)
[2021-03-14] MEDS ORDERED: IBUPROFEN 600 MG TAB PO STA (20:12)
[2021-03-14 20:21] LABS: ALT 30 U/L (4-34); AST 32 U/L (14-36); African American GFR (CKD) >90 (>60 ml/min/1.73 sqM); Albumin 4.9 g/dL (3.5-5.0); Alkaline Phosphatase 46 U/L (38-126); Anion Gap 13 mmol/L; Blood Urea Nitrogen 10 mg/dL (7-17); Calcium 10.1 mg/dL (8.4-10.2); Carbon Dioxide 23 mmol/L (22-30); Chloride 103 mmol/L (98-107); Glucose 127 mg/dL (74-99); Non-African American GFR(CKD) >90 (>60 ml/min/1.73 sqM); Potassium 4.1 mmol/L (3.5-5.1); Sodium 139 mmol/L (137-145); Total Bilirubin 0.8 mg/dL (0.2-1.3); Total Protein 7.1 g/dL (6.3-8.2)
[2021-03-14] MEDS ORDERED: MAGNESIUM HYDROXIDE 2,400 MG/10 ML CUP PO PRN (20:32)
[2021-03-14] MEDS ORDERED: MAG HYDROX/AL HYDROX/SIMETH 30 ML CUP PO PRN (20:32)
[2021-03-14] MEDS ORDERED: LORazepam 1 MG TAB PO PRN (20:32)
[2021-03-14] MEDS ORDERED: HALOPERIDOL LACTATE 5 MG/ML 1 ML VIAL IM PRN (20:42)
[2021-03-14] MEDS ORDERED: haloperidoL 5 MG TAB PO PRN (20:48)
[2021-03-14] MEDS ORDERED: LORazepam 2 MG/ML INJ IM PRN (20:50)
[2021-03-14 21:23] LABS: Amphetamine Screen,Urine Detected (NotDetected); Barbiturate Screen,Urine Not Detected (NotDetected); Benzodiazepines Screen,Urine Not Detected (NotDetected); Cocaine Screen,Urine Not Detected (NotDetected); Methadone Screen, Urine Not Detected (NotDetected); Opiate Screen,Urine Not Detected (NotDetected); Oxycodone Screen, Urine Not Detected (NotDetected); Phencyclidine Screen,Urine Not Detected (NotDetected); Tricyclic Antidepressant,Urine Not Detected (NotDetected); Urn Cannabinoid Scrn Detected (NotDetected)
[2021-03-15 07:24] VITALS: RESP 18
[2021-03-15] MEDS: NICOTINE 21MG/24HR PATCH TRANSDERM SCH (08:38)
[2021-03-15] MEDS: predniSONE 50 MG TAB PO SCH (08:38)
[2021-03-15] MEDS: valACYclovir HCL 1,000 MG TABLET PO SCH (08:38)
[2021-03-15] MEDS ORDERED: ESCITALOPRAM 20 MG TAB PO SCH (09:00)
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
[2021-03-15 13:19] VITALS: BMI 26.5
[2021-03-15] MEDS: OLANZapine 10 MG TAB PO SCH ×2 (13:21→21:17)
--- NOTE | 2021-03-16 01:04 | P.CONS ---
History of Present Illness - Reason for Consult Consult date: 03/16/21 - History of Present Illness The patient was seen with mental health unit RN Karie Diaz was never alone with the patient. Patient is a 21-year-old female with a PMH of anxiety and depression who presented to the emergency room with complaints of auditory and visual hallucinations. The patient was admitted to the mental health unit where she was seen and evaluated. Patient reports feeling somewhat of the same since her admission. She reported long-standing lower back pain, unchanged. Patient also reports that she has been seeing a seamer panty hose for an undiagnosed inflammatory condition for which she has been taking prednisone 50 mg daily at home. Reports that she was seeing a seamer panty hose due to her back pain. She denied chest discomfort, shortness of breath, fever, chills. Denied nausea, vomiting, abdominal pain, diarrhea. Review of systems: Pertinent positives and negatives as discussed in HPI, a complete review of systems was performed and all other systems are negative. Physical examination: General: non toxic, no distress, appears at stated age, normal weight Derm: no unusual rashes/lesions no unusual ecchymoses, warm, dry Head: atraumatic, normocephalic, symmetric Eyes: EOMI, no lid lag, anicteric sclera, pupils equal round reactive to light ENT: Nose and ears atraumatic, no thrush, no pharyngeal erythema Neck: No thyromegaly, no cervical lymphadenopathy, trachea midline, supple Mouth: no lip lesion, mucus membranes moist Cardiovascular: S1S2 reg, no murmur, positive posterior tibial pulse bilateral, no edema, capillary refill less than 2 seconds Lungs: CTA bilateral, no rhonchi, no rales , no accessory muscle use Abdominal: soft, nontender to palpation, no guarding, no appreciable organomegaly, normal bowel sounds Ext: no gross muscle atrophy, muscle strength 5 out of 5 in all 4 extremities grossly, no contractures, Neuro: CN II-XI grossly intact, light touch intact all 4 extremities, finger to nose within normal limits, Psych: Alert, oriented, appropriate affect Assessment/plan Unknown rheumatological condition -continue with prednisone for now -f/u w/ outpatient seamer panty hose Psychosis -As per psychiatry Past Medical History Past Medical History: No Reported History Additional Past Medical History / Comment(s): COVID-26 Aug 2020 History of Any Multi-Drug Resistant Organisms: None Reported Past Surgical History: Tonsillectomy Past Anesthesia/Blood Transfusion Reactions: Postoperative Nausea & Vomiting (PONV) Past Psychological History: Anxiety, Depression Additional Psychological History / Comment(s): Polysubstance abuse. Smoking Status: Vaper Past Alcohol Use History: None Reported Past Drug Use History: Marijuana - Past Family History Mother Family Medical History: No Reported History Medications and Allergies Home Medications Medication Instructions Recorded Confirmed Type Escitalopram [Lexapro] 20 mg PO DAILY 06/11/20 03/14/21 History predniSONE 50 mg PO DAILY 3 Days #3 tab 01/22/21 03/14/21 Rx Phentermine HCl [Adipex-P] 37.5 mg PO DAILY 03/14/21 03/14/21 History Rizatriptan Benzoate [Rizatriptan] 10 mg PO DAILY PRN 03/14/21 03/14/21 History valACYclovir HCL [Valtrex] 1,000 mg PO DAILY 03/14/21 03/14/21 History Allergies Allergy/AdvReac Type Severity Reaction Status Date / Time amoxicillin Allergy Mild Rash/Hives Verified 03/14/21 18:05 Physical Exam Vitals: Vital Signs Temp Pulse Resp BP 03/15/21 06:47 97.3 F L 83 18 107/58 Intake and Output 03/15/21 03/15/21 03/16/21 14:59 22:59 06:59 Other: Weight 74.6 kg Results CBC & Chem 7: 03/14/21 20:01 03/14/21 20:01
[2021-03-16] MEDS: OLANZapine 10 MG TAB PO SCH ×2 (08:30→19:46)
[2021-03-16] MEDS: predniSONE 50 MG TAB PO SCH (08:30)
[2021-03-16] MEDS: valACYclovir HCL 1,000 MG TABLET PO SCH (08:30)
[2021-03-16] MEDS: NICOTINE 21MG/24HR PATCH TRANSDERM SCH (10:27)
--- NOTE | 2021-03-16 18:26 | PN ---
PROGRESS NOTE DATE OF SERVICE: 03/16/2021. CHIEF COMPLAINT: The patient was showing manic symptoms. She had episodes of psychosis, believing that she was infested with worms. She was obsessive about fears of medical issues. INTERVAL HISTORY: Patient has been doing fair. She had a quiet day yesterday. She was out on the unit some in the morning. She appeared to have manic and psychotic symptoms, at least as part of her presentation. As such, she was started on Zyprexa 10 mg twice a day. She got very sedated from her morning dose of Zyprexa, so we deferred any evening dosing. She did attend one group yesterday. She slept fairly well last night. Today she has been up. She did not receive Zyprexa this morning. She has attended groups today. Generally, her mood has been in a reasonable level. She has been appropriate in groups and in her interactions with others. It does appear that she is a little slowed down in her thoughts and actions towards a more normal level, as compared to on admission. Her mood is a little more even and not quite so elevated as it appeared to be. From the patient's standpoint, she said that she did not believe that she had persistent manic symptoms, though possibly in the hypomanic range. On the other hand, in reviewing her history she did seem to show indications of manic episodes. It is noted that her drug screen was positive for methamphetamine. She said that her sister uses Adderall and also tends to abuse it and buys it off the street. She believes she may have gotten a pill that in fact was methamphetamines rather than Adderall. She had been using Adderall herself. She acknowledges that she has had a few, what she would describe, as discreet episodes of hallucinations and psychotic thinking over the last 2 months. It is noted, that I had documented in the H and P conversation with her sister, who suggests she may have more persistent psychotic symptoms and dysfunction, than the patient herself may acknowledge. She is comfortable continuing Zyprexa, that we will continue her on a lower dose. MENTAL STATUS EXAM: Patient sat without restlessness. She gave fairly good eye contact. She answered questions with brief responses. Her thoughts were clear. She was not too spontaneous, though she was somewhat interactive. Her affect was in a reasonable range. Her mood was even. She did not appear to have an elevated mood. She did not have pressured speech or flight of ideas. She stayed on track in the conversation. There was no indication of thought disorder. From the patient's standpoint, she stated she has not had any auditory hallucinations since the day of her coming into the hospital. She voiced no thoughts of harm. Cognition was clear. ASSESSMENT: I will continue the current diagnosis and treatment plan. I will continue Zyprexa, though will give her just 10 mg at bedtime. We will continue to evaluate for bipolar symptoms. It is noted that she had an intake with [facility] just in the week prior to her coming into the hospital. She presumably has things set up through [facility] for medication followup. Given that the patient is showing good progress, I would anticipate her being discharged early in the week. We can coordinate with [facility] for followup appointments. ELAINE / TESFAYE: [id number] /
[2021-03-16] MEDS: ACETAMINOPHEN TAB 325 MG TAB PO PRN (19:46)
[2021-03-16] MEDS ORDERED: IOPAMIDOL CONTRAST (ORAL USE) VIAL PO PRN (23:38)
[2021-03-17 00:05] LABS: HCT 38.4 % (34.0-46.0); HGB 13.5 gm/dL (11.4-16.0); MCHC 35.1 g/dL (31.0-37.0); MCV 94.3 fL (80.0-100.0); Mean Platelet Volume 6.4; Platelet Count 339 k/uL (150-450); RBC 4.07 m/uL (3.80-5.40); RDW 12.3 % (11.5-15.5); WBC 21.1 k/uL (3.8-10.6)
[2021-03-17 00:16] LABS: ALT 23 U/L (4-34); AST 19 U/L (14-36); African American GFR (CKD) >90 (>60 ml/min/1.73 sqM); Albumin 4.1 g/dL (3.5-5.0); Alkaline Phosphatase 42 U/L (38-126); Anion Gap 6 mmol/L; Blood Urea Nitrogen 17 mg/dL (7-17); Calcium 9.2 mg/dL (8.4-10.2); Carbon Dioxide 27 mmol/L (22-30); Chloride 100 mmol/L (98-107); Glucose 131 mg/dL (74-99); Non-African American GFR(CKD) >90 (>60 ml/min/1.73 sqM); Potassium 3.2 mmol/L (3.5-5.1); Sodium 133 mmol/L (137-145); Total Bilirubin 0.4 mg/dL (0.2-1.3); Total Protein 6.2 g/dL (6.3-8.2)
--- NOTE | 2021-03-17 01:28 | CT ---
EXAMINATION TYPE: CT abdomen pelvis w con DATE OF EXAM: 03/17/2021 COMPARISON: None HISTORY: RLQ pain CT DLP: 509.3 mGycm Automated exposure control for dose reduction was used. CONTRAST: Performed with IV Contrast, patient injected with 100 mL of Isovue 300. Images obtained from the diaphragm to the floor the pelvis with IV contrast. Lung bases are clear. There is no pleural effusion. Heart size is normal. There is no pericardial eff usion. Liver spleen stomach pancreas gallbladder appear normal. The bile ducts are not dilated. There is no adrenal mass. Kidneys show satisfactory contrast opacification. There is no hydronephrosi s. The ureters are not dilated. There is no retroperitoneal adenopathy. There is no inguinal hernia. Uterus is anteverted. The bladder distends smoothly. I see no pelvic mass. There is no sign of free fluid in the cul-de-sac . Appendix is posterior and appears normal. Terminal ileum appears normal. There is no mesenteric edema. There is no ascites or free air. There is no bowel obstruction. The lum bar vertebra have normal spacing and alignment. Posterior elements are intact. There is no compressio n fracture. Bony pelvis is intact. The hip joints are intact. There is no hip dysplasia. IMPRESSION: Negative CT scan of the abdomen pelvis. Normal appendix.
[2021-03-17] MEDS ORDERED: POTASSIUM CHLORIDE ER 20 MEQ TAB.ER PO SCH (04:00)
[2021-03-17] MEDS: POTASSIUM CHLORIDE ER 20 MEQ TAB.ER PO SCH ×2 (06:19→08:52)
[2021-03-17 07:48] LABS: HCT 41.3 % (34.0-46.0); HGB 14.5 gm/dL (11.4-16.0); MCH 33.3 pg (25.0-35.0); MCHC 35.1 g/dL (31.0-37.0); MCV 94.8 fL (80.0-100.0); Mean Platelet Volume 6.7; Platelet Count 326 k/uL (150-450); RBC 4.36 m/uL (3.80-5.40); RDW 12.6 % (11.5-15.5); WBC 21.3 k/uL (3.8-10.6)
[2021-03-17 07:55] LABS: African American GFR (CKD) >90 (>60 ml/min/1.73 sqM); Anion Gap 7 mmol/L; Blood Urea Nitrogen 15 mg/dL (7-17); Carbon Dioxide 30 mmol/L (22-30); Chloride 99 mmol/L (98-107); Glucose 108 mg/dL (74-99); Non-African American GFR(CKD) >90 (>60 ml/min/1.73 sqM); Sodium 136 mmol/L (137-145)
[2021-03-17] MEDS: valACYclovir HCL 1,000 MG TABLET PO SCH (08:52)
[2021-03-17] MEDS: predniSONE 50 MG TAB PO SCH (08:52)
[2021-03-17] MEDS: NICOTINE 21MG/24HR PATCH TRANSDERM SCH (08:52)
--- NOTE | 2021-03-17 14:21 | P.PN ---
Progress Note - Text Progress Note Date: 03/17/21 Interval History: Patient was seen in her room and was directable and agreeable to speak with director underwriter sales . Patient's been having very bizarre behavior, worsening symptoms over the last several months. . Patient denies any side effects from the medications and has been compliant with meds. Mental Status Exam: General Appearance: Patient appears to be stated age is alert, directable, and cooperative. Behavior: Patient is calmly seated without any agitated behavior. Speech: Patient's speech is fluent and nonpressured. Mood/Affect: Mood is improving mildly, affect is congruent and constricted. Suicidality/Homicidality: Patient denies having any suicidal or homicidal ideation intent or plan. Perceptions: Patient denies any visual hallucinations and denies any auditory hallucinations Though content/process: There is no evidence of any delusional thought content and thought process is linear and goal-directed. Memory and concentration: AOX3, grossly intact for the purposes of this session Judgment and insight: Improving mildly Assessment Patient continues to maintain the status quo Plan: -Patient continues to meet criteria for inpatient psychiatric admission for symptom stabilization and safety. -Medications: Continue medication as before -When necessary Ativan and Haldol for agitation/aggression. -SW on board for discharge planning. Encouraged the patient to participate in milieu.
[2021-03-17] MEDS: ACETAMINOPHEN TAB 325 MG TAB PO PRN (18:19)
[2021-03-17] MEDS: OLANZapine 10 MG TAB PO SCH (20:54)
[2021-03-18] MEDS: predniSONE 50 MG TAB PO SCH (08:26)
[2021-03-18] MEDS: NICOTINE 21MG/24HR PATCH TRANSDERM SCH (08:26)
[2021-03-18] MEDS: valACYclovir HCL 1,000 MG TABLET PO SCH (08:26)
--- NOTE | 2021-03-18 10:46 | P.PN ---
Progress Note - Text Progress Note Date: 03/18/21 Interval History: Patient was seen in the room and was directable and agreeable to speak with data analyst report writer. Patient is a 21-year-old female with a PMH of anxiety and depression who presented to the emergency room with complaints of auditory and visual hallucinations. . At this time patient denies any suicidal or homical ideations, intent or plan. Patient denies any side effects from the medications and has been compliant with meds. Mental Status Exam: General Appearance: Patient appears to be stated age is alert, directable, and cooperative. Behavior: Patient is calmly seated without any agitated behavior. Speech: Patient's speech is fluent and nonpressured. Mood/Affect: Mood is improving mildly, affect is congruent and constricted. Suicidality/Homicidality: Patient denies having any suicidal or homicidal ideation intent or plan. Perceptions: Patient denies any visual hallucinations and denies any auditory hallucinations Memory and concentration: AOX3, grossly intact for the purposes of this session Judgment and insight: Improving mildly Assessment Psychotic disorder NOS Plan: -Patient continues to meet criteria for inpatient psychiatric admission for symptom stabilization and safety. -Medications: Continue medication as before -When necessary Ativan and Haldol for agitation/aggression. -SW on board for discharge planning. Encouraged the patient to participate in milieu.
[2021-03-18] MEDS: OLANZapine 10 MG TAB PO SCH (21:08)
[2021-03-18] MEDS: FLUCONAZOLE 100 MG TAB PO SCH (21:09)
[2021-03-19 07:11] VITALS: BP 102/55; PULSE 93; TEMP 97.5
[2021-03-19] MEDS: valACYclovir HCL 1,000 MG TABLET PO SCH (08:13)
[2021-03-19] MEDS: NICOTINE 21MG/24HR PATCH TRANSDERM SCH (08:13)
[2021-03-19] MEDS: predniSONE 50 MG TAB PO SCH (08:13)
[2021-03-19] MEDS: FLUCONAZOLE 100 MG TAB PO SCH (08:15)
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
== END 2021-03-19 15:05 | disposition home or self-care (01) | DRG 885 ==
LOC: EC 17:21 → 3MHU 20:34
PROVIDERS: ADMIT Psychiatry & Neurology Psychiatry; ATTEND Psychiatry & Neurology Psychiatry
DX: F23 Brief psychotic disorder (principal); Z88.1 Allergy status to other antibiotic agents; F15.10 Other stimulant abuse, uncomplicated; F17.210 Nicotine dependence, cigarettes, uncomplicated; F12.10 Cannabis abuse, uncomplicated; Z79.899 Other long term (current) drug therapy
CPT/HCPCS: 36415; 74177; 80048; 80053; 80306; 82075; 83605; 85025; 85027; 99285

== ENCOUNTER 2021-04-02 09:22 | Emergency (ER) | payer OTHER, MEDICAID ==
[2021-04-02 09:36] VITALS: RESP 18; TEMP 98.2
[2021-04-02] MEDS ORDERED: PANTOPRAZOLE 40 MG/10 ML VIAL IVP STA (09:59)
[2021-04-02 10:23] LABS: Basophils # (A) 0.1 k/uL (0-0.2); Basophils % (A) 1 %; Eosinophils % (A) 0 %; HCT 42.6 % (34.0-46.0); HGB 13.8 gm/dL (11.4-16.0); Lymphocytes # (A) 0.9 k/uL (1.0-4.8); Lymphocytes % (A) 7 %; MCH 32.3 pg (25.0-35.0); MCHC 32.4 g/dL (31.0-37.0); MCV 99.5 fL (80.0-100.0); Monocytes # (A) 0.2 k/uL (0-1.0); Monocytes % (A) 2 %; Neutrophils # (A) 11.9 k/uL (1.3-7.7); Neutrophils % (A) 90 %; Platelet Count 408 k/uL (150-450); RBC 4.28 m/uL (3.80-5.40); RDW 13.1 % (11.5-15.5); WBC 13.2 k/uL (3.8-10.6)
[2021-04-02 10:28] LABS: Appearance,Urine Clear (Clear); Bacteria,Urine Occasional /hpf; Bilirubin,Urine Negative (Negative); Blood,Urine Negative (Negative); Color,Urine Yellow; Glucose,Urine (UA) Negative (Negative); Ketones,Urine Negative (Negative); Leukocyte Esterase,Urine Large (Negative); Mucus,Urine Rare /hpf; Nitrite,Urine Negative (Negative); PH, Urine 6.5 (5.0-8.0); Protein,Urine Negative (Negative); Specific Gravity,Urine 1.016 (1.001-1.035); Squamous Epithelial Cell,Urine 1 /hpf (0-4); Urobilinogen,Urine <2.0 mg/dL (<2.0); WBC,Urine 18 /hpf (0-5)
[2021-04-02 10:38] LABS: ALT 30 U/L (4-34); AST 28 U/L (14-36); African American GFR (CKD) >90 (>60 ml/min/1.73 sqM); Albumin 4.5 g/dL (3.5-5.0); Alkaline Phosphatase 45 U/L (38-126); Anion Gap 11 mmol/L; Blood Urea Nitrogen 13 mg/dL (7-17); Carbon Dioxide 25 mmol/L (22-30); Chloride 105 mmol/L (98-107); Glucose 157 mg/dL (74-99); Non-African American GFR(CKD) >90 (>60 ml/min/1.73 sqM); Potassium 4.5 mmol/L (3.5-5.1); Sodium 141 mmol/L (137-145); Total Bilirubin 0.2 mg/dL (0.2-1.3); Total Protein 6.8 g/dL (6.3-8.2)
--- NOTE | 2021-04-02 10:49 | ED ---
General Adult HPI - General Chief complaint: GI Bleed Stated complaint: black stool Time Seen by Provider: 04/02/21 09:55 Source: patient, RN notes reviewed Mode of arrival: ambulatory Limitations: no limitations - History of Present Illness Initial comments: This a 20-year-old female presents emergency Department chief complaint of dark stools. Patient states she has noticed this over the last week she's had dark stools. She did admit that she had a recent hospitalization at [address]. Patient denies any history of GI bleeds. She did have recent CAT scan which was unremarkable. Patient was seen at [facility] for rheumatology reasons. Patient does admit the use of Motrin but not abusive Motrin denies any history of ulcers no fevers or chills. - Related Data Home Medications Medication Instructions Recorded Confirmed Rizatriptan Benzoate [Rizatriptan] 10 mg PO DAILY PRN 03/14/21 04/02/21 valACYclovir HCL [Valtrex] 1,000 mg PO DAILY 03/14/21 04/02/21 Cholecalciferol [Vitamin D3 (25 25 mcg PO DAILY 04/02/21 04/02/21 Mcg = 1000 Iu)] L.acidoph,Paracasei, B.lactis 1 cap PO DAILY 04/02/21 04/02/21 [Probiotic] Multivitamins, Thera [Multivitamin 1 tab PO DAILY 04/02/21 04/02/21 (formulary)] Nicotine 21Mg/24Hr Patch [Habitrol] 1 patch TRANSDERM DAILY PRN 04/02/21 04/02/21 OLANZapine [ZyPREXA] 10 mg PO DAILY 04/02/21 04/02/21 Sulfamethox-Tmp 800-160Mg [Bactrim 1 tab PO Q12HR 04/02/21 04/02/21 DS 800-160 mg] predniSONE 25 mg PO DAILY 04/02/21 04/02/21 Previous Rx's Medication Instructions Recorded Nitrofurantoin Monohyd/M-Cryst 100 mg PO Q12HR #14 cap 04/02/21 [Macrobid] Omeprazole [PriLOSEC] 40 mg PO DAILY #14 cap 04/02/21 Sucralfate [Carafate] 1 gm PO BID #20 tablet 04/02/21 Allergies Allergy/AdvReac Type Severity Reaction Status Date / Time amoxicillin Allergy Mild Rash/Hives Verified 04/02/21 10:05 Review of Systems ROS Statement: Those systems with pertinent positive or pertinent negative responses have been documented in the HPI. ROS Other: All systems not noted in ROS Statement are negative. Past Medical History Past Medical History: No Reported History Additional Past Medical History / Comment(s): COVID-26 Aug 2020 History of Any Multi-Drug Resistant Organisms: None Reported Past Surgical History: Tonsillectomy Past Anesthesia/Blood Transfusion Reactions: Postoperative Nausea & Vomiting (PONV) Past Psychological History: Anxiety, Depression Smoking Status: Vaper Past Alcohol Use History: None Reported Past Drug Use History: Marijuana - Past Family History Mother Family Medical History: No Reported History General Exam Limitations: no limitations General appearance: alert, in no apparent distress Head exam: Present: atraumatic, normocephalic, normal inspection Eye exam: Present: normal appearance, PERRL, EOMI. Absent: scleral icterus, conjunctival injection, periorbital swelling Respiratory exam: Present: normal lung sounds bilaterally. Absent: respiratory distress, wheezes, rales, rhonchi, stridor Cardiovascular Exam: Present: normal rhythm, tachycardia, normal heart sounds. Absent: systolic murmur, diastolic murmur, rubs, gallop, clicks GI/Abdominal exam: Present: soft, tenderness, normal bowel sounds. Absent: distended, guarding, rebound, rigid Back exam: Absent: CVA tenderness (R), CVA tenderness (L) Neurological exam: Present: alert Course Vital Signs 04/02/21 04/02/21 09:33 11:38 Temperature 98.2 F 98.2 F Pulse Rate 121 H 110 H Respiratory 18 18 Rate Blood Pressure 136/72 130/81 O2 Sat by Pulse 96 99 Oximetry Medical Decision Making - Medical Decision Making Patient has evidence of urinary tract infection, concern for peptic ulcer disease that she's had some dark stools. Patient had great improvement with GI cocktail. Patient we discharged on omeprazole, Carafate return parameters were discussed. Patient will follow-up with GI for EGD - Lab Data Result diagrams: 04/02/21 10:03 04/02/21 10:03 Lab Results 04/02/21 04/02/21 04/02/21 Range/Units 10:03 10:03 10:03 WBC 13.2 H (3.8-10.6) k/uL RBC 4.28 (3.80-5.40) m/uL Hgb 13.8 (11.4-16.0) gm/dL Hct 42.6 (34.0-46.0) % MCV 99.5 (80.0-100.0) fL MCH 32.3 (25.0-35.0) pg MCHC 32.4 (31.0-37.0) g/dL RDW 13.1 (11.5-15.5) % Plt Count 408 (150-450) k/uL MPV 7.0 Neutrophils % 90 % Lymphocytes % 7 % Monocytes % 2 % Eosinophils % 0 % Basophils % 1 % Neutrophils # 11.9 H (1.3-7.7) k/uL Lymphocytes # 0.9 L (1.0-4.8) k/uL Monocytes # 0.2 (0-1.0) k/uL Eosinophils # 0.0 (0-0.7) k/uL Basophils # 0.1 (0-0.2) k/uL PT 9.6 (9.0-12.0) sec INR 0.9 (<1.2) APTT 19.7 L (22.0-30.0) sec Sodium 141 (137-145) mmol/L Potassium 4.5 (3.5-5.1) mmol/L Chloride 105 (98-107) mmol/L Carbon Dioxide 25 (22-30) mmol/L Anion Gap 11 mmol/L BUN 13 (7-17) mg/dL Creatinine 0.64 (0.52-1.04) mg/dL Est GFR (CKD-EPI)AfAm >90 (>60 ml/min/1.73 sqM) Est GFR (CKD-EPI)NonAf >90 (>60 ml/min/1.73 sqM) Glucose 157 H (74-99) mg/dL Calcium 10.0 (8.4-10.2) mg/dL Total Bilirubin 0.2 (0.2-1.3) mg/dL AST 28 (14-36) U/L ALT 30 (4-34) U/L Alkaline Phosphatase 45 (38-126) U/L Total Protein 6.8 (6.3-8.2) g/dL Albumin 4.5 (3.5-5.0) g/dL Urine Color Urine Appearance (Clear) Urine pH (5.0-8.0) Ur Specific Grandin (1.001-1.035) Urine Protein (Negative) Urine Glucose (UA) (Negative) Urine Ketones (Negative) Urine Blood (Negative) Urine Nitrite (Negative) Urine Bilirubin (Negative) Urine Urobilinogen (<2.0) mg/dL Ur Leukocyte Esterase (Negative) Urine WBC (0-5) /hpf Ur Squamous Epith Cells (0-4) /hpf Urine Bacteria (None) /hpf Urine Mucus (None) /hpf Urine HCG, Qual (Not Detectd) 04/02/21 04/02/21 Range/Units 10:03 10:03 WBC (3.8-10.6) k/uL RBC (3.80-5.40) m/uL Hgb (11.4-16.0) gm/dL Hct (34.0-46.0) % MCV (80.0-100.0) fL MCH (25.0-35.0) pg MCHC (31.0-37.0) g/dL RDW (11.5-15.5) % Plt Count (150-450) k/uL MPV Neutrophils % % Lymphocytes % % Monocytes % % Eosinophils % % Basophils % % Neutrophils # (1.3-7.7) k/uL Lymphocytes # (1.0-4.8) k/uL Monocytes # (0-1.0) k/uL Eosinophils # (0-0.7) k/uL Basophils # (0-0.2) k/uL PT (9.0-12.0) sec INR (<1.2) APTT (22.0-30.0) sec Sodium (137-145) mmol/L Potassium (3.5-5.1) mmol/L Chloride (98-107) mmol/L Carbon Dioxide (22-30) mmol/L Anion Gap mmol/L BUN (7-17) mg/dL Creatinine (0.52-1.04) mg/dL Est GFR (CKD-EPI)AfAm (>60 ml/min/1.73 sqM) Est GFR (CKD-EPI)NonAf (>60 ml/min/1.73 sqM) Glucose (74-99) mg/dL Calcium (8.4-10.2) mg/dL Total Bilirubin (0.2-1.3) mg/dL AST (14-36) U/L ALT (4-34) U/L Alkaline Phosphatase (38-126) U/L Total Protein (6.3-8.2) g/dL Albumin (3.5-5.0) g/dL Urine Color Yellow Urine Appearance Clear (Clear) Urine pH 6.5 (5.0-8.0) Ur Specific Grandin 1.016 (1.001-1.035) Urine Protein Negative (Negative) Urine Glucose (UA) Negative (Negative) Urine Ketones Negative (Negative) Urine Blood Negative (Negative) Urine Nitrite Negative (Negative) Urine Bilirubin Negative (Negative) Urine Urobilinogen <2.0 (<2.0) mg/dL Ur Leukocyte Esterase Large H (Negative) Urine WBC 18 H (0-5) /hpf Ur Squamous Epith Cells 1 (0-4) /hpf Urine Bacteria Occasional H (None) /hpf Urine Mucus Rare H (None) /hpf Urine HCG, Qual Not Detected (Not Detectd) Disposition Clinical Impression: Gastritis, UTI (urinary tract infection), PUD (peptic ulcer disease) Disposition: HOME SELF-CARE Condition: Stable Instructions (If sedation given, give patient instructions): Gastritis (ED), Diet for Stomach Ulcers and Gastritis (ED) Additional Instructions: Please return to the Emergency Department if symptoms worsen or any other concerns. Prescriptions: Sucralfate [Carafate] 1 gm PO BID #20 tablet Nitrofurantoin Monohyd/M-Cryst [Macrobid] 100 mg PO Q12HR #14 cap Omeprazole [PriLOSEC] 40 mg PO DAILY #14 cap Is patient prescribed a controlled substance at d/c from ED?: No Referrals: Hector Hidalgo MD [Primary Care Provider] - 1-2 days Cheri Cedillo MD [STAFF PHYSICIAN] - 1-2 days Time of Disposition: 12:23
[2021-04-02 11:02] LABS: INR 0.9 (<1.2); Prothrombin Time 9.6 sec (9.0-12.0)
[2021-04-02 11:08] LABS: Partial Thromboplastin Time 19.7 sec (22.0-30.0)
[2021-04-02 11:41] VITALS: BP 130/81; PULSE 110
[2021-04-02] MEDS ORDERED: MAG HYDROX/AL HYDROX/SIMETH 30 ML, HYOSCYAMINE ELIXIR 10 ML PO STA ×2 (11:44)
== END 2021-04-02 12:37 | disposition home or self-care (01) ==
LOC: EC 09:22
DX: K29.70 Gastritis, unspecified, without bleeding (principal); N39.0 Urinary tract infection, site not specified; K27.9 Peptic ulcer, site unspecified, unspecified as acute or chronic, without hemorrhage or perforation; F17.290 Nicotine dependence, other tobacco product, uncomplicated; Z88.0 Allergy status to penicillin; Z86.16 Personal history of COVID-19
CPT/HCPCS: 80053; 85025; 85610; 85730; 81001; 81025; 87086; 99284; 96374; C9113

== ENCOUNTER 2021-04-08 17:36 | Emergency (ER) | payer MEDICAID, OTHER ==
[2021-04-08 17:59] VITALS: RESP 18; TEMP 98.4
[2021-04-08] MEDS ORDERED: DEXAMETHASONE SOD PHOSPHATE 10 MG/ML 1 ML VIAL IM STA (18:26)
--- NOTE | 2021-04-08 18:37 | ED ---
Extremity Problem HPI - General Chief complaint: Extremity Problem,Nontraumatic Stated complaint: reaction Time Seen by Provider: 04/08/21 18:01 Source: patient Mode of arrival: ambulatory Limitations: no limitations - History of Present Illness Initial comments: 20-year-old female presents to emergency Department for multiple chief complaints. Patient reports recently she was diagnosed with lupus and is currently on maintenance dose of 15 mg of prednisone. States she has not developed an exacerbation of her symptoms where she has a burning sensation in her skin. She also reports pain at the IV site but denies any discharge. Denies any chest pain shortness of breath. States typically this goes away after IM dose of steroids. She is also complaining of dysuria even though she is currently on Macrobid. States she's also been complaining of some degree, second vaginal discharge that has a false small. Denies any abdominal pain back pain nausea or vomiting. Denies any fevers or chills. Denies any concern for at this time. - Related Data Home Medications Medication Instructions Recorded Confirmed Rizatriptan Benzoate [Rizatriptan] 10 mg PO DAILY PRN 03/14/21 04/02/21 valACYclovir HCL [Valtrex] 1,000 mg PO DAILY 03/14/21 04/02/21 Cholecalciferol [Vitamin D3 (25 25 mcg PO DAILY 04/02/21 04/02/21 Mcg = 1000 Iu)] L.acidoph,Paracasei, B.lactis 1 cap PO DAILY 04/02/21 04/02/21 [Probiotic] Multivitamins, Thera [Multivitamin 1 tab PO DAILY 04/02/21 04/02/21 (formulary)] Nicotine 21Mg/24Hr Patch [Habitrol] 1 patch TRANSDERM DAILY PRN 04/02/21 04/02/21 OLANZapine [ZyPREXA] 10 mg PO DAILY 04/02/21 04/02/21 Sulfamethox-Tmp 800-160Mg [Bactrim 1 tab PO Q12HR 04/02/21 04/02/21 DS 800-160 mg] predniSONE 25 mg PO DAILY 04/02/21 04/02/21 Previous Rx's Medication Instructions Recorded Nitrofurantoin Monohyd/M-Cryst 100 mg PO Q12HR #14 cap 04/02/21 [Macrobid] Omeprazole [PriLOSEC] 40 mg PO DAILY #14 cap 04/02/21 Sucralfate [Carafate] 1 gm PO BID #20 tablet 04/02/21 Cephalexin [Keflex] 500 mg PO BID 3 Days #6 cap 04/08/21 metroNIDAZOLE [Flagyl] 500 mg PO BID #14 tab 04/08/21 Allergies Allergy/AdvReac Type Severity Reaction Status Date / Time amoxicillin Allergy Mild Rash/Hives Verified 04/08/21 17:59 Review of Systems ROS Statement: Those systems with pertinent positive or pertinent negative responses have been documented in the HPI. ROS Other: All systems not noted in ROS Statement are negative. Past Medical History Past Medical History: No Reported History Additional Past Medical History / Comment(s): COVID-26 Aug 2020 History of Any Multi-Drug Resistant Organisms: None Reported Past Surgical History: Tonsillectomy Past Anesthesia/Blood Transfusion Reactions: Postoperative Nausea & Vomiting (PONV) Past Psychological History: Anxiety, Depression Smoking Status: Vaper Past Alcohol Use History: None Reported Past Drug Use History: Marijuana - Past Family History Mother Family Medical History: No Reported History General Exam Limitations: no limitations General appearance: alert, in no apparent distress Head exam: Present: atraumatic, normocephalic, normal inspection Eye exam: Present: normal appearance, PERRL, EOMI Pupils: Present: normal accommodation ENT exam: Present: normal exam, normal oropharynx, mucous membranes moist Neck exam: Present: normal inspection, full ROM. Absent: tenderness, meningismus, lymphadenopathy Respiratory exam: Present: normal lung sounds bilaterally. Absent: respiratory distress, wheezes, rales, rhonchi, stridor Cardiovascular Exam: Present: regular rate, normal rhythm, normal heart sounds GI/Abdominal exam: Present: soft. Absent: distended, tenderness, guarding, rebound, rigid Extremities exam: Present: normal inspection (IV site is healing well. No tende rness or ecchymosis to the region), full ROM. Absent: tenderness Back exam: Present: normal inspection, full ROM. Absent: tenderness, CVA tenderness (R), CVA tenderness (L) Neurological exam: Present: alert, oriented X3 Psychiatric exam: Present: normal affect, normal mood Skin exam: Present: warm, dry, intact, normal color Course Vital Signs 04/08/21 17:56 Temperature 98.4 F Pulse Rate 108 H Respiratory 18 Rate Blood Pressure 140/79 O2 Sat by Pulse 97 Oximetry Medical Decision Making - Medical Decision Making 20-year-old male presents emergency Department with multiple chief complaint. It appears that her burning symptoms on her skin go away after IV steroids. We'll give tomographies of Decadron. Advised to continue the maintenance dose of prednisone. I reviewed her medical records and they revealed a negative urine culture obtained from several days ago. I did recommend repeat urine culture she declined. I did offer pelvic examination, she declined. She is only requesting treatment. I advised her to stop taking the Macrobid and I will start her on Keflex instead. I will also treat her for bacterial vaginosis based on her description of the signs and symptoms. I will start on Flagyl. Advised no alcohol. Return parameters were thoroughly discussed the patient is an attending agreeable. Case discussed physician. Disposition Clinical Impression: Burning sensation of skin, Dysuria Disposition: HOME SELF-CARE Condition: Stable Instructions (If sedation given, give patient instructions): Dysuria (ED) Additional Instructions: Please return to the Emergency Department if symptoms worsen or any other concerns. Prescriptions: metroNIDAZOLE [Flagyl] 500 mg PO BID #14 tab Cephalexin [Keflex] 500 mg PO BID 3 Days #6 cap Is patient prescribed a controlled substance at d/c from ED?: No Referrals: Sergio Mojica MD [Primary Care Provider] - 1-2 days Time of Disposition: 18:37
[2021-04-08 18:56] VITALS: BP 131/84; PULSE 70
== END 2021-04-08 18:55 | disposition home or self-care (01) ==
LOC: EC 17:36
DX: R20.8 Other disturbances of skin sensation (principal); R30.0 Dysuria; N89.8 Other specified noninflammatory disorders of vagina; F17.290 Nicotine dependence, other tobacco product, uncomplicated; Z88.0 Allergy status to penicillin
CPT/HCPCS: 99283; 96372; J1100

== ENCOUNTER 2021-07-08 10:09 | Emergency (ER) | payer OTHER ==
[2021-07-08 10:14] VITALS: BP 125/79; PULSE 96; RESP 18; TEMP 98
--- NOTE | 2021-07-08 11:02 | ED ---
General Adult HPI - General Chief complaint: Recheck/Abnormal Lab/Rx Stated complaint: 5wks preg/lightheaded/fatigue Time Seen by Provider: 07/08/21 10:24 Source: patient, RN notes reviewed Mode of arrival: ambulatory Limitations: no limitations - History of Present Illness Initial comments: 20-year-old female presents to the emergency department for a blood draw. Patient states that she has an appointment with Dr. Villafana tomorrow at 8 AM and wants to get her TSH drawn before that. Patient states after each she is tired and her hair is falling out. Patient sates she just got again and wants her TSH checked. Patient states again she has been tired and feels her hair is falling out more than normal. Patient denies any other complaints. Denies abdominal pain or vaginal bleeding. Patient is about 5 weeks . Patient does not want to wait for lab work to come back and wants to review it on her portal tomorrow with her doctor.Patient has no other complaints at this time including shortness of breath, chest pain, abdominal pain, nausea or vomiting, headache, or visual changes. - Related Data Home Medications Medication Instructions Recorded Confirmed Rizatriptan Benzoate [Rizatriptan] 10 mg PO DAILY PRN 03/14/21 04/02/21 valACYclovir HCL [Valtrex] 1,000 mg PO DAILY 03/14/21 04/02/21 Cholecalciferol [Vitamin D3 (25 25 mcg PO DAILY 04/02/21 04/02/21 Mcg = 1000 Iu)] L.acidoph,Paracasei, B.lactis 1 cap PO DAILY 04/02/21 04/02/21 [Probiotic] Multivitamins, Thera [Multivitamin 1 tab PO DAILY 04/02/21 04/02/21 (formulary)] Nicotine 21Mg/24Hr Patch [Habitrol] 1 patch TRANSDERM DAILY PRN 04/02/21 04/02/21 OLANZapine [ZyPREXA] 10 mg PO DAILY 04/02/21 04/02/21 Sulfamethox-Tmp 800-160Mg [Bactrim 1 tab PO Q12HR 04/02/21 04/02/21 DS 800-160 mg] predniSONE 25 mg PO DAILY 04/02/21 04/02/21 Previous Rx's Medication Instructions Recorded Nitrofurantoin Monohyd/M-Cryst 100 mg PO Q12HR #14 cap 04/02/21 [Macrobid] Omeprazole [PriLOSEC] 40 mg PO DAILY #14 cap 04/02/21 Sucralfate [Carafate] 1 gm PO BID #20 tablet 04/02/21 Cephalexin [Keflex] 500 mg PO BID 3 Days #6 cap 04/08/21 metroNIDAZOLE [Flagyl] 500 mg PO BID #14 tab 04/08/21 Allergies Allergy/AdvReac Type Severity Reaction Status Date / Time amoxicillin Allergy Mild Rash/Hives Verified 07/08/21 10:14 Review of Systems ROS Statement: Those systems with pertinent positive or pertinent negative responses have been documented in the HPI. ROS Other: All systems not noted in ROS Statement are negative. Past Medical History Past Medical History: No Reported History Additional Past Medical History / Comment(s): COVID-26 Aug 2020 History of Any Multi-Drug Resistant Organisms: None Reported Past Surgical History: Tonsillectomy Past Anesthesia/Blood Transfusion Reactions: Postoperative Nausea & Vomiting (PONV) Past Psychological History: Anxiety, Depression Smoking Status: Vaper Past Alcohol Use History: None Reported Past Drug Use History: Marijuana - Past Family History Mother Family Medical History: No Reported History General Exam Limitations: no limitations General appearance: alert, in no apparent distress Head exam: Present: atraumatic Eye exam: Present: normal appearance, PERRL, EOMI. Absent: scleral icterus, co njunctival injection ENT exam: Present: normal exam, mucous membranes moist Neck exam: Present: normal inspection, full ROM. Absent: tenderness Respiratory exam: Present: normal lung sounds bilaterally. Absent: respiratory distress, wheezes Cardiovascular Exam: Present: regular rate, normal rhythm, normal heart sounds GI/Abdominal exam: Present: soft, normal bowel sounds. Absent: distended, tenderness Neurological exam: Present: alert Course Vital Signs 07/08/21 10:11 Temperature 98.0 F Pulse Rate 96 Respiratory 18 Rate Blood Pressure 125/79 O2 Sat by Pulse 99 Oximetry Medical Decision Making - Medical Decision Making I did draw patient's basic labs for her primary care provider. CBC BMP and urinalysis looked good, just awaiting TSH results. She will follow up with primary care regarding this and her . Again no complaints today. She will return here for any worsening symptoms. - Lab Data Result diagrams: 07/08/21 11:13 07/08/21 11:13 Lab Results 07/08/21 07/08/21 07/08/21 Range/Units 11:13 11:13 11:13 WBC 8.2 (3.8-10.6) k/uL RBC 4.42 (3.80-5.40) m/uL Hgb 13.2 (11.4-16.0) gm/dL Hct 41.2 (34.0-46.0) % MCV 93.1 (80.0-100.0) fL MCH 29.9 (25.0-35.0) pg MCHC 32.1 (31.0-37.0) g/dL RDW 11.5 (11.5-15.5) % Plt Count 297 (150-450) k/uL MPV 7.5 Neutrophils % 73 % Lymphocytes % 19 % Monocytes % 5 % Eosinophils % 1 % Basophils % 1 % Neutrophils # 6.0 (1.3-7.7) k/uL Lymphocytes # 1.5 (1.0-4.8) k/uL Monocytes # 0.4 (0-1.0) k/uL Eosinophils # 0.1 (0-0.7) k/uL Basophils # 0.1 (0-0.2) k/uL Sodium 139 (137-145) mmol/L Potassium 4.3 (3.5-5.1) mmol/L Chloride 106 (98-107) mmol/L Carbon Dioxide 25 (22-30) mmol/L Anion Gap 8 mmol/L BUN 10 (7-17) mg/dL Creatinine 0.77 (0.52-1.04) mg/dL Est GFR (CKD-EPI)AfAm >90 (>60 ml/min/1.73 sqM) Est GFR (CKD-EPI)NonAf >90 (>60 ml/min/1.73 sqM) Glucose 88 (74-99) mg/dL Calcium 9.8 (8.4-10.2) mg/dL Urine Color Colorless Urine Appearance Clear (Clear) Urine pH 6.5 (5.0-8.0) Ur Specific [place] 1.004 (1.001-1.035) Urine Protein Negative (Negative) Urine Glucose (UA) Negative (Negative) Urine Ketones Negative (Negative) Urine Blood Negative (Negative) Urine Nitrite Negative (Negative) Urine Bilirubin Negative (Negative) Urine Urobilinogen <2.0 (<2.0) mg/dL Ur Leukocyte Esterase Negative (Negative) Disposition Clinical Impression: Routine lab draw, Fatigue Disposition: HOME SELF-CARE Condition: Good Instructions (If sedation given, give patient instructions): First Trimester (ED) Additional Instructions: Please go over your labs with your primary care provider. Return to the emergency room for any worsening symptoms. Is patient prescribed a controlled substance at d/c from ED?: No Referrals: Gavin Villafana MD [Primary Care Provider] - 1-2 days Time of Disposition: 11:55
[2021-07-08 11:21] LABS: Basophils # (A) 0.1 k/uL (0-0.2); Basophils % (A) 1 %; Eosinophils # (A) 0.1 k/uL (0-0.7); Eosinophils % (A) 1 %; HCT 41.2 % (34.0-46.0); HGB 13.2 gm/dL (11.4-16.0); Lymphocytes # (A) 1.5 k/uL (1.0-4.8); Lymphocytes % (A) 19 %; MCH 29.9 pg (25.0-35.0); MCHC 32.1 g/dL (31.0-37.0); MCV 93.1 fL (80.0-100.0); Mean Platelet Volume 7.5; Monocytes # (A) 0.4 k/uL (0-1.0); Monocytes % (A) 5 %; Neutrophils % (A) 73 %; Platelet Count 297 k/uL (150-450); RBC 4.42 m/uL (3.80-5.40); RDW 11.5 % (11.5-15.5); WBC 8.2 k/uL (3.8-10.6)
[2021-07-08 11:22] LABS: Appearance,Urine Clear (Clear); Bilirubin,Urine Negative (Negative); Blood,Urine Negative (Negative); Color,Urine Colorless; Glucose,Urine (UA) Negative (Negative); Ketones,Urine Negative (Negative); Leukocyte Esterase,Urine Negative (Negative); Nitrite,Urine Negative (Negative); PH, Urine 6.5 (5.0-8.0); Protein,Urine Negative (Negative); Specific Gravity,Urine 1.004 (1.001-1.035); Urobilinogen,Urine <2.0 mg/dL (<2.0)
[2021-07-08 11:39] LABS: African American GFR (CKD) >90 (>60 ml/min/1.73 sqM); Anion Gap 8 mmol/L; Blood Urea Nitrogen 10 mg/dL (7-17); Calcium 9.8 mg/dL (8.4-10.2); Carbon Dioxide 25 mmol/L (22-30); Chloride 106 mmol/L (98-107); Glucose 88 mg/dL (74-99); Non-African American GFR(CKD) >90 (>60 ml/min/1.73 sqM); Potassium 4.3 mmol/L (3.5-5.1); Sodium 139 mmol/L (137-145)
== END 2021-07-08 12:10 | disposition home or self-care (01) ==
LOC: EC 10:09
DX: Z01.812 Encounter for preprocedural laboratory examination (principal); O26.811 Pregnancy related exhaustion and fatigue, first trimester; R42 Dizziness and giddiness; O99.331 Smoking (tobacco) complicating pregnancy, first trimester; F17.290 Nicotine dependence, other tobacco product, uncomplicated; Z3A.01 Less than 8 weeks gestation of pregnancy; Z88.0 Allergy status to penicillin; Z86.16 Personal history of COVID-19
CPT/HCPCS: 36415; 80048; 81003; 84443; 85025; 99284

== ENCOUNTER 2021-09-06 09:56 | Emergency (ER) | payer OTHER ==
[2021-09-06 10:11] VITALS: BP 110/69; PULSE 113; RESP 18; TEMP 97.8
--- NOTE | 2021-09-06 12:10 | ED ---
General Adult HPI - General Source: patient Mode of arrival: ambulatory Limitations: no limitations <Darrion Muller - Last Filed: 09/06/21 12:08> <Leydi Kiser - Last Filed: 09/06/21 23:16> - General Chief complaint: Recheck/Abnormal Lab/Rx Stated complaint: Covid test Time Seen by Provider: 09/06/21 11:43 - History of Present Illness Initial comments: 20-year-old female presents to the emergency room for a chief complaint of COVID-19 exposure. Patient states that she was exposed to 5 days ago. He says since that time she has had a runny nose sore throat nausea and diarrhea. Patient denies any fevers. Denies cough or shortness of breath. States she is only here for COVID-19 test.Patient has no other complaints at this time including shortness of breath, chest pain, abdominal pain, nausea or vomiting, headache, or visual changes. (Darrion Muller) - Related Data Home Medications Medication Instructions Recorded Confirmed Rizatriptan Benzoate [Rizatriptan] 10 mg PO DAILY PRN 03/14/21 04/02/21 valACYclovir HCL [Valtrex] 1,000 mg PO DAILY 03/14/21 04/02/21 Cholecalciferol [Vitamin D3 (25 25 mcg PO DAILY 04/02/21 04/02/21 Mcg = 1000 Iu)] L.acidoph,Paracasei, B.lactis 1 cap PO DAILY 04/02/21 04/02/21 [Probiotic] Multivitamins, Thera [Multivitamin 1 tab PO DAILY 04/02/21 04/02/21 (formulary)] Nicotine 21Mg/24Hr Patch [Habitrol] 1 patch TRANSDERM DAILY PRN 04/02/21 04/02/21 OLANZapine [ZyPREXA] 10 mg PO DAILY 04/02/21 04/02/21 Sulfamethox-Tmp 800-160Mg [Bactrim 1 tab PO Q12HR 04/02/21 04/02/21 DS 800-160 mg] predniSONE 25 mg PO DAILY 04/02/21 04/02/21 Previous Rx's Medication Instructions Recorded Nitrofurantoin Monohyd/M-Cryst 100 mg PO Q12HR #14 cap 04/02/21 [Macrobid] Omeprazole [PriLOSEC] 40 mg PO DAILY #14 cap 04/02/21 Sucralfate [Carafate] 1 gm PO BID #20 tablet 04/02/21 Cephalexin [Keflex] 500 mg PO BID 3 Days #6 cap 04/08/21 metroNIDAZOLE [Flagyl] 500 mg PO BID #14 tab 04/08/21 Allergies Allergy/AdvReac Type Severity Reaction Status Date / Time amoxicillin Allergy Mild Rash/Hives Verified 09/06/21 10:07 Review of Systems ROS Other: All systems not noted in ROS Statement are negative. <Darrion Muller - Last Filed: 09/06/21 12:08> ROS Other: All systems not noted in ROS Statement are negative. <Leydi Kiser - Last Filed: 09/06/21 23:16> ROS Statement: Those systems with pertinent positive or pertinent negative responses have been documented in the HPI. Past Medical History Past Medical History: No Reported History Additional Past Medical History / Comment(s): COVID-26 Aug 2020 History of Any Multi-Drug Resistant Organisms: None Reported Past Surgical History: Tonsillectomy Past Anesthesia/Blood Transfusion Reactions: Postoperative Nausea & Vomiting (PONV) Past Psychological History: Anxiety, Depression Smoking Status: Vaper Past Alcohol Use History: None Reported Past Drug Use History: Marijuana - Past Family History Mother Family Medical History: No Reported History <Darrion Muller P - Last Filed: 09/06/21 12:08> General Exam Limitations: no limitations General appearance: alert, in no apparent distress Head exam: Present: atraumatic Eye exam: Present: normal appearance, PERRL, EOMI. Absent: scleral icterus, conjunctival injection ENT exam: Present: normal exam, mucous membranes moist Neck exam: Present: normal inspection, full ROM. Absent: tenderness Respiratory exam: Present: normal lung sounds bilaterally. Absent: respiratory distress, wheezes Cardiovascular Exam: Present: regular rate, normal rhythm, normal heart sounds <Darrion Muller - Last Filed: 09/06/21 12:08> Course Vital Signs 09/06/21 10:08 Temperature 97.8 F Pulse Rate 113 H Respiratory 18 Rate Blood Pressure 110/69 O2 Sat by Pulse 97 Oximetry Medical Decision Making <Darrion Muller - Last Filed: 09/06/21 12:08> <Leydi Kiser - Last Filed: 09/06/21 23:16> - Medical Decision Making Vitals are stable. Patient is well-appearing. Patient tested negative for COVI D-19. Patient can be discharged home to follow up with primary care. Will return here for any worsening symptoms. (Darrion Muller) I was available for consultation in the emergency department. The history and physical exam were done by the midlevel provider. I was consulted for this patients care. I reviewed the case with the midlevel provider and based on their presentation of the patient, I agree with the assessment, medical decision making and plan of care as documented. Chart was dictated using [employer] dictation software. Attempts were made to correct any dictation errors however some typographical errors may persist. Patient was seen during a national state of emergency due to the Covid-19 pandemic. (Leydi Kiser) - Lab Data Lab Results 09/06/21 Range/Units 10:12 Coronavirus (PCR) Not Detected (Not Detectd) Disposition Is patient prescribed a controlled substance at d/c from ED?: No Time of Disposition: 12:09 <Darrion Muller - Last Filed: 09/06/21 12:08> <Leydi Kiser - Last Filed: 09/06/21 23:16> Clinical Impression: Lab test negative for COVID-19 virus Disposition: HOME SELF-CARE Condition: Good Instructions (If sedation given, give patient instructions): Upper Respiratory Infection (ED) Additional Instructions: Please follow-up with your doctor in one to 2 days. Return to the emergency room for any shortness of breath, difficulty breathing, or other concerning symptoms. Referrals: Gavin Villafana MD [Primary Care Provider] - 1-2 days
== END 2021-09-06 12:12 | disposition home or self-care (01) ==
LOC: EC 09:56
DX: Z20.822 Contact with and (suspected) exposure to COVID-19 (principal); F41.9 Anxiety disorder, unspecified; F32.A Depression, unspecified; F17.290 Nicotine dependence, other tobacco product, uncomplicated; F12.90 Cannabis use, unspecified, uncomplicated; Z88.0 Allergy status to penicillin
CPT/HCPCS: 87635; 99284

== ENCOUNTER 2022-02-27 06:28 | Outpatient (CLI) | payer OTHER ==
[2022-02-27 08:37] VITALS: BP 126/68; PULSE 94; RESP 16; TEMP 95.4
--- NOTE | 2022-02-28 22:24 | P.MSEPDOC ---
Presenting Problems - Arrival Data Date of Arrival on Unit: 02/27/22 Time of Arrival on Unit: 06:28 Mode of Transport: Ambulatory - Complaint OB-Reason for Admission/Chief Complaint: Possible Onset of Labor Medical History - Information : 3 Para: 2 Term: 2 : 0 Abortions: Spontaneous or Elective: 0 Number of Living Children: 2 - Gestational Age Gestational Age by YARELIS (wks/days): 38 Weeks and 5 Days - History Comment: polyhdramnios (stated per pt) Review of Systems - Review of Systems Constitutional: No problems Breast: No problems ENT: No problems Cardiovascular: No problems Respiratory: No problems Gastrointestinal: No problems Genitourinary: No problems Musculoskeletal: No problems Neurological: No problems Skin: No problems Vital Signs - Temperature Temperature: 95.4 F Temperature Source: Temporal Artery Scan - Pulse Right Sitting Pulse Rate: 94 Pulse Assessment Method: Automatic Cuff - Respirations Respiratory Rate: 16 Oxygen Delivery Method: Room Air - Blood Pressure Right Arm Blood Pressure: 126/68 Blood Pressure Mean: 87 Blood Pressure Source: Automatic Cuff Medical Screen Scoring - Cervical Exam Dilation (cm): 3 Effacement (%): 50 Station: -2 Membranes: Intact - Uterine Contractions Frequency From (mins): 4 Frequency To (mins): 5 Duration From (seconds): 50 Duration To (seconds): 70 Intensity: Moderate Resting: Soft to palpation - Assessment - Baby A Baseline FHR: 130 Heart Rate - NICHD Category: Category I (Normal) NST: Reactive Physician Notification - Physician Notified Physician Notified Date: 02/27/22 Physician Notified Time: 08:04 Physician: Shanon Gregorio Order Received: Yes (d/c home) Maternal Triage Index - Non-Urgent/Priority 4 Non-Urgent Priority 4: Yes Criteria Met for Priority 4: minimal cervical change after 1 hour, intact, reactive nst Disposition - Disposition OB Disposition: Discharge to home, Written follow up instructions reviewed Discharge Date: 02/27/22 Discharge Time: 08:05 I agree with the RN Medical Screening Exam: Yes Case reviewed; plan agreed upon as documented in EMR&OBIX.: Yes Diagnosis: FALSE LABOR AT OR AFTER 37 COMPLETED WEEKS OF GESTATION
== END 2022-02-27 08:05 | disposition home or self-care (01) ==
LOC: FBPOP 06:28
PROVIDERS: ATTEND Obstetrics & Gynecology
DX: O47.1 False labor at or after 37 completed weeks of gestation (principal); Z3A.38 38 weeks gestation of pregnancy; Z88.1 Allergy status to other antibiotic agents; Z87.891 Personal history of nicotine dependence
CPT/HCPCS: 59025; 99213

== ENCOUNTER 2022-02-28 17:20 | Inpatient (IN) | payer OTHER ==
[2022-02-28] MEDS: LACTATED RINGERS 1,000 ML IV SCH ×2 (19:01→19:45)
[2022-02-28] MEDS ORDERED: TERBUTALINE 1 MG/ML VIAL SQ PRN (19:05)
[2022-02-28] MEDS ORDERED: LIDOCAINE 0.5% (PF) 5 MG/ML (50 ML SDV) SQ PRN (19:05)
[2022-02-28] MEDS ORDERED: CARBOPROST TROMETHAMINE 250 MCG/ML 1 ML AMP IM PRN (19:05)
[2022-02-28] MEDS ORDERED: METHYLERGONOVINE 0.2 MG/ML 1 ML AMP IM PRN (19:05)
[2022-02-28] MEDS ORDERED: OXYTOCIN 10 UNIT/ML 1 ML VIAL IM PRN (19:05)
[2022-02-28 19:17] LABS: Basophils # (A) 0.2 k/uL (0-0.2); Basophils % (A) 1 %; Eosinophils # (A) 0.1 k/uL (0-0.7); Eosinophils % (A) 1 %; HCT 42.1 % (34.0-46.0); HGB 14.1 gm/dL (11.4-16.0); Lymphocytes # (A) 1.8 k/uL (1.0-4.8); Lymphocytes % (A) 17 %; MCH 31.2 pg (25.0-35.0); MCHC 33.4 g/dL (31.0-37.0); MCV 93.3 fL (80.0-100.0); Mean Platelet Volume 8.4; Monocytes # (A) 0.4 k/uL (0-1.0); Monocytes % (A) 4 %; Neutrophils # (A) 8.2 k/uL (1.3-7.7); Neutrophils % (A) 76 %; Platelet Count 265 k/uL (150-450); RBC 4.51 m/uL (3.80-5.40); RDW 13.2 % (11.5-15.5); WBC 10.7 k/uL (3.8-10.6)
[2022-02-28] MEDS ORDERED: fentaNYL (PF) 50 MCG/ML 5 ML AMP ONE (19:28)
[2022-02-28] MEDS ORDERED: ROPIVACAINE 5MG/ML 20ML VIAL ONE (19:28)
[2022-02-28] MEDS ORDERED: SODIUM CHLORIDE 0.9% 100 ML BAG ONE (19:28)
[2022-02-28 19:36] LABS: Amphetamine Screen,Urine Not Detected (NotDetected); Barbiturate Screen,Urine Not Detected (NotDetected); Benzodiazepines Screen,Urine Not Detected (NotDetected); Cocaine Screen,Urine Not Detected (NotDetected); Methadone Screen, Urine Not Detected (NotDetected); Opiate Screen,Urine Not Detected (NotDetected); Oxycodone Screen, Urine Not Detected (NotDetected); Phencyclidine Screen,Urine Not Detected (NotDetected); Tricyclic Antidepressant,Urine Not Detected (NotDetected); Urn Cannabinoid Scrn Not Detected (NotDetected)
[2022-02-28] MEDS ORDERED: OXYTOCIN 30 UNITS/500 ML NS 30 UNIT in SALINE 1 500ML.BAG IV SCH (22:00)
--- NOTE | 2022-02-28 22:12 | P.HPOB ---
History of Present Illness H&P Date: 02/28/22 Chief Complaint: Contractions This is a 21-year-old female 3 para 2 with an estimated date of confinement of 03/08/2022, estimated gestational age of 38-6/7 weeks, who presents to labor and delivery with complaints of contractions that became stronger today. She was seen in triage her yesterday and noted to be 2-1/2-3 cm. On arrival she was 4 cm and did make change to 5 cm over an hour period of time. She sees a Doctor [facility] Bh[facility]at [facility] for her care during this . When I asked her why she did not go there, she stated could not make the drive. She has however been making all of her visits down there. Her did print off all of her records off of the my chart. Her has been complicated by a polyhydramnios diagnosed recently. Her last ultrasound however last week did show KENIA of 18. Obstetrical history: . History of 2 vaginal deliveries at term. Her first baby was approximately 8-1/2 pounds and her second baby was in the 6 pound range. Her second baby developed internal bleeding at 19 days old and was in [facility] for about a month. He did receive steroids and it completely resolved. They have no cause for this bleed. They do not feel that it is hereditary. Gynecologic history: She does have a history of herpes and has been on suppression throughout her . She did have an outbreak towards the beginning of the but nothing for the remainder of her . Social history: She is . She is not working. labs: Group B streptococcus-negative Hemoglobin-12.1 One hour Glucola-73 HIV-nonreactive Syphilis antibody-negative nonreactive Hepatitis B surface antigen-negative GC/Chlamydia/Trichomonas-negative Pap smear-within normal limits Panorama screening-low risk Blood type-A+ Antibody screen-negative Rubella-immune Random glucose-78 Review of Systems Constitutional: Denies chills, Denies fever Eyes: denies blurred vision, denies pain Ears, nose, mouth and throat: Denies headache, Denies sore throat Cardiovascular: Denies chest pain, Denies shortness of breath Respiratory: Denies cough Gastrointestinal: Reports abdominal pain (Contractions), Reports heartburn Genitourinary: Reports pelvic pain, Reports Musculoskeletal: Reports low back pain Integumentary: Denies pruritus, Denies rash Neurological: Denies numbness, Denies weakness Psychiatric: Reports depression Past Medical History Past Medical History: GERD/Reflux Additional Past Medical History / Comment(s): COVID-26 Aug 2020 History of Any Multi-Drug Resistant Organisms: None Reported Past Surgical History: Tonsillectomy Past Anesthesia/Blood Transfusion Reactions: Postoperative Nausea & Vomiting (P ONV) Past Psychological History: Anxiety, Depression Additional Psychological History / Comment(s): Polysubstance abuse. Smoking Status: Vaper Past Alcohol Use History: None Reported Past Drug Use History: Marijuana (States she last used 2 months ago) - Past Family History Mother Family Medical History: No Reported History Medications and Allergies Home Medications Medication Instructions Recorded Confirmed Type valACYclovir HCL [Valtrex] 1,000 mg PO DAILY 03/14/21 02/28/22 History Escitalopram [Lexapro] 1 tab PO DAILY 02/27/22 02/28/22 History Famotidine 1 tab PO BID 02/27/22 02/28/22 History Allergies Allergy/AdvReac Type Severity Reaction Status Date / Time amoxicillin Allergy Mild Rash/Hives Verified 02/28/22 17:30 Exam Osteopathic Statement: *. No significant issues noted on an osteopathic structural exam other than those noted in the History and Physical/Consult. Vital Signs Temp Pulse Resp BP 02/28/22 19:12 98.4 F 96 18 137/80 Intake and Output 02/28/22 02/28/22 02/28/22 06:59 14:59 22:59 Other: # Voids 1 Weight 97.522 kg Gen.: Well-developed well-nourished female in no acute distress HEENT: Within normal limits Heart: Regular rate and rhythm Lungs: Clear to auscultation bilaterally Abdomen: Cervix: Initially in triage was 4 cm with cervical change to 5 cm after 1 hour. Currently she is 6 cm with bulging bag. Artificial rupture membranes is carried out with clear fluid noted. heart tones are reactive and category 1 tracing. Contractions: Every 3-5 minutes Extremities: Negative Homans Results Result Diagrams: 02/28/22 19:03 Abnormal Lab Results - Last 24 Hours (Table) 02/28/22 Range/Units 19:03 WBC 10.7 H (3.8-10.6) k/uL Neutrophils # 8.2 H (1.3-7.7) k/uL Assessment and Plan (1) 38 weeks gestation of Current Visit: Yes Status: Acute Code(s): Z3A.38 - 38 WEEKS GESTATION OF SNOMED Code(s): 16606016 (2) Polyhydramnios Current Visit: Yes Status: Acute Code(s): O40.9XX0 - POLYHYDRAMNIOS, UNSP TRIMESTER, NOT APPLICABLE OR UNSP SNOMED Code(s): 04333172 Plan: Admission for active labor. Expectant management. Epidural anesthesia. We will obtain urine drug screen due to no care here and history of marijuana use during . Oxytocin augmentation of labor if necessary.
--- NOTE | 2022-02-28 22:26 | P.MSEPDOC ---
Presenting Problems - Arrival Data Date of Arrival on Unit: 02/28/22 Time of Arrival on Unit: 17:20 Mode of Transport: Ambulatory - Complaint OB-Reason for Admission/Chief Complaint: Possible Onset of Labor Comment: pt presenting to triage for contractions that are stronger in intensity and frequency Medical History - Information : 3 Para: 2 Term: 2 : 0 Abortions: Spontaneous or Elective: 0 Number of Living Children: 2 - Gestational Age Gestational Age by YARELIS (wks/days): 38 Weeks and 6 Days - History Complications: Other Comment: polyhydrominos Review of Systems - Review of Systems Constitutional: No problems Breast: No problems ENT: No problems Cardiovascular: No problems Respiratory: No problems Gastrointestinal: No problems Genitourinary: No problems Musculoskeletal: No problems Neurological: No problems Skin: No problems Vital Signs - Temperature Temperature: 98.4 F Temperature Source: Oral - Pulse Right Brachial Pulse Rate: 96 Pulse Assessment Method: Automatic Cuff - Respirations Respiratory Rate: 18 Oxygen Delivery Method: Room Air - Blood Pressure Right Arm Blood Pressure: 137/80 Blood Pressure Mean: 99 Medical Screen Scoring - Cervical Exam Dilation (cm): 4 Effacement (%): 70 Station: -2 - Uterine Contractions Frequency From (mins): 3 Frequency To (mins): 5 Duration From (seconds): 60 Duration To (seconds): 80 Intensity: Moderate Resting: Soft to palpation - Assessment - Baby A Baseline FHR: 140 Heart Rate - NICHD Category: Category I (Normal) NST: Reactive Physician Notification - Physician Notified Physician Notified Date: 02/28/22 Physician Notified Time: 18:53 Physician: Dr. Gregorio New Order Received: Yes - Notification Comment Comment: pt admitted for labor due to cervical change in triage, pt may have epidural Maternal Triage Index - Maternal Triage Index Presenting for scheduled procedure w/no complaint: No - Stat/Priority 1 Stat Priority 1: No - Urgent/Priority 2 Urgent Priority 2: No - Prompt/Priority 3 Prompt Priority 3: Yes Criteria Met for Priority 3: pt presents to triage for contractions that are regular and more intense Disposition - Disposition OB Disposition: Admit I agree with the RN Medical Screening Exam: Yes Case reviewed; plan agreed upon as documented in EMR&OBIX.: Yes Diagnosis: ENCOUNTER FOR FULL-TERM UNCOMPLICATED DELIVERY
--- NOTE | 2022-03-01 01:24 | P.PROBDLV ---
Vaginal Delivery Note - . Vaginal Delivery Note: The patient progressed to complete dilation after artificial rupture membranes and oxytocin augmentation of labor. She did receive epidural anesthesia. Once reaching complete, she began pushing. Infant's head came to a crown. With one further push, the 's head delivered across the perineum followed by the anterior shoulder and then the body of the infant. was placed on mother's abdomen and cord was clamped and cut. Nose and mouth were bulb suction ed. Infant was taken to warmer for evaluation. A viable male infant was noted with scores of 9 at 1 minute and 9 at 5 minutes and weight of 8 lbs. 2 oz. After approximately 20 minutes, the placenta had not yet. A gloved hand was placed within the cavity and the placenta was then manually removed. A gloved hand was placed within the intrauterine cavity to remove several blood clots. No further placental tissue was obtained. Uterus did contract well after oxytocin was given and uterine massage was carried out. Inspection of the perineum revealed a right periurethral laceration that was noted to be bleeding. This area was anesthetized with 1% lidocaine and then sutured with 3-0 Vicryl suture in a running locked fashion. There was a left periurethral abrasion that was noted to be hemostatic. Estimated blood loss is approximately 200 mL's. Mother and infant are in stable condition.
[2022-03-01] MEDS ORDERED: ZOLPIDEM 5 MG TAB PO PRN (01:25)
[2022-03-01] MEDS ORDERED: LANOLIN CREAM 5 GM TUBE TOPICAL PRN (01:25)
[2022-03-01] MEDS ORDERED: OXYTOCIN 30 UNITS/500 ML NS 30 UNIT in SALINE 1 500ML.BAG IV SCH (01:25)
[2022-03-01] MEDS ORDERED: diphenhydrAMINE 50 MG CAP PO PRN (01:25)
[2022-03-01] MEDS ORDERED: BENZOCAINE/MENTHOL SPRAY 1 GM/SPRAY AEROSOL TOPICAL PRN (01:25)
[2022-03-01] MEDS ORDERED: SIMETHICONE 80 MG CHEWABLE PO PRN (01:25)
[2022-03-01] MEDS ORDERED: HYDROCORTISONE 2.5% RECTAL CREAM 30 GM TUBE RECTAL PRN (01:25)
[2022-03-01] MEDS ORDERED: diphenhydrAMINE 50 MG/ML 1 ML VIAL IVP PRN ×2 (01:25)
[2022-03-01] MEDS ORDERED: diphenhydrAMINE 25 MG CAP PO PRN (01:25)
[2022-03-01] MEDS: IBUPROFEN 600 MG TAB PO PRN ×3 (02:56→21:49)
[2022-03-01 06:55] LABS: Basophils % (A) 0 %; Eosinophils # (A) 0.1 k/uL (0-0.7); Eosinophils % (A) 1 %; HCT 37.4 % (34.0-46.0); HGB 12.5 gm/dL (11.4-16.0); Lymphocytes # (A) 1.7 k/uL (1.0-4.8); Lymphocytes % (A) 8 %; MCH 31.5 pg (25.0-35.0); MCHC 33.4 g/dL (31.0-37.0); MCV 94.4 fL (80.0-100.0); Mean Platelet Volume 8.3; Monocytes # (A) 0.7 k/uL (0-1.0); Monocytes % (A) 3 %; Neutrophils # (A) 18.6 k/uL (1.3-7.7); Neutrophils % (A) 88 %; Platelet Count 237 k/uL (150-450); RBC 3.96 m/uL (3.80-5.40); RDW 13.3 % (11.5-15.5); WBC 21.2 k/uL (3.8-10.6)
[2022-03-01] MEDS: ACETAMINOPHEN TAB 325 MG TAB PO PRN ×2 (08:02→20:09)
[2022-03-01] MEDS: SENNOSIDES-DOCUSATE SODIUM 1 EACH TAB PO SCH ×2 (08:02→20:09)
[2022-03-01] MEDS: ESCITALOPRAM 20 MG TAB PO SCH (17:26)
[2022-03-01] MEDS: FAMOTIDINE 20 MG TAB PO SCH ×2 (17:27→20:10)
[2022-03-01] MEDS: valACYclovir HCL 1,000 MG TABLET PO SCH (17:27)
[2022-03-02] MEDS: ACETAMINOPHEN TAB 325 MG TAB PO PRN ×2 (01:20→08:12)
[2022-03-02] MEDS: IBUPROFEN 600 MG TAB PO PRN ×2 (04:20→10:25)
[2022-03-02 07:47] LABS: Basophils % (A) 0 %; Eosinophils # (A) 0.1 k/uL (0-0.7); Eosinophils % (A) 1 %; HCT 35.8 % (34.0-46.0); Lymphocytes # (A) 2.5 k/uL (1.0-4.8); Lymphocytes % (A) 22 %; MCH 31.8 pg (25.0-35.0); MCHC 33.7 g/dL (31.0-37.0); MCV 94.3 fL (80.0-100.0); Mean Platelet Volume 8.5; Monocytes # (A) 0.5 k/uL (0-1.0); Monocytes % (A) 4 %; Neutrophils # (A) 7.9 k/uL (1.3-7.7); Neutrophils % (A) 71 %; Platelet Count 227 k/uL (150-450); RBC 3.79 m/uL (3.80-5.40); RDW 13.5 % (11.5-15.5); WBC 11.1 k/uL (3.8-10.6)
[2022-03-02] MEDS: ESCITALOPRAM 20 MG TAB PO SCH (08:12)
[2022-03-02] MEDS: SENNOSIDES-DOCUSATE SODIUM 1 EACH TAB PO SCH (08:12)
[2022-03-02] MEDS: FAMOTIDINE 20 MG TAB PO SCH (08:12)
[2022-03-02] MEDS: valACYclovir HCL 1,000 MG TABLET PO SCH (08:12)
[2022-03-02 08:44] VITALS: BP 119/81; PULSE 102; RESP 14; TEMP 98.4
--- NOTE | 2022-03-02 08:57 | P.DS ---
Providers Date of admission: 02/28/22 18:45 Expected date of discharge: 03/02/22 Attending physician: Shanon Gregorio Primary care physician: Stated None - Discharge Diagnosis(es) (1) Normal spontaneous vaginal delivery Current Visit: No Status: Acute Hospital Course: Patient presented in active labor. She underwent normal vaginal delivery. course was uncomplicated. She denies nausea, vomiting, chest pain, shortness of breath or calf pain. Patient will be discharged home day #1 in stable condition to follow-up with her doctor in 6 weeks. Plan - Discharge Summary New Discharge Prescriptions: New Ibuprofen [Motrin] 600 mg PO Q6HR PRN #30 tab PRN Reason: Mild Pain (Scale 1 To 3) No Action valACYclovir HCL [Valtrex] 1,000 mg PO DAILY Escitalopram [Lexapro] 1 tab PO DAILY Famotidine 1 tab PO BID Discharge Medication List valACYclovir HCL [Valtrex] 1,000 mg PO DAILY 03/14/21 [History] Escitalopram [Lexapro] 1 tab PO DAILY 02/27/22 [History] Famotidine 1 tab PO BID 02/27/22 [History] Ibuprofen [Motrin] 600 mg PO Q6HR PRN #30 tab 03/02/22 [Rx] Follow up Appointment(s)/Referral(s): [facility] [Other] - 6 Weeks Activity/Diet/Wound Care/Special Instructions: Instructions 1. Do not begin any exercise program for 3 weeks. 2. Do not resume sexual relations for 3 weeks or longer if uncomfortable. 3. You may take tub baths or showers at any time. 4. You may use tampons if desired after 3 weeks. 5. Keep the area of episiotomy (stitches) clean and dry. 6. If you are not nursing, wear a good fitting, supportive bra during the day and limit fluid intake for at least 1 week to prevent breast engorgement. 7. Call the office, [phone], within the next week to make appointment for your 6 week checkup if it has not already been made. 8. Report any of the following occurrences to the doctor promptly: a. Heavy, excessive bleeding b. Chills, fever c. Burning or frequency of urination d. Pain or redness and breasts if nursing e. Increasing pain or swelling in episiotomy (stitches). In addition to the above instructions, the following additional should be followed: 1. No heavy lifting or straining (exercising) until after 6 week checkup. 2. Keep abdominal incision clean and dry: You may wear a dressing if more comfortable. 3. Make office appointment for 10 days after going home or as instructed by her doctor. Discharge Disposition: HOME SELF-CARE
== END 2022-03-02 11:47 | disposition home or self-care (01) | DRG 806 ==
LOC: FBPOP 17:20 → 4FBP 18:45
PROVIDERS: ADMIT Obstetrics & Gynecology; ATTEND Obstetrics & Gynecology
PROC: 10E0XZZ Delivery of Products of Conception, External Approach (ICD-10-PCS; principal; 2022-03-01)
PROC: 10907ZC Drainage of Amniotic Fluid, Therapeutic from Products of Conception, Via Natural or Artificial Opening (ICD-10-PCS; 2022-03-01)
PROC: 3E033VJ Introduction of Other Hormone into Peripheral Vein, Percutaneous Approach (ICD-10-PCS; 2022-03-01)
PROC: 10907ZC Drainage of Amniotic Fluid, Therapeutic from Products of Conception, Via Natural or Artificial Opening (ICD-10-PCS; 2022-03-01)
PROC: 3E033VJ Introduction of Other Hormone into Peripheral Vein, Percutaneous Approach (ICD-10-PCS; 2022-03-01)
PROC: 4A0HXCZ Measurement of Products of Conception, Cardiac Rate, External Approach (ICD-10-PCS; 2022-03-01)
PROC: 0UQMXZZ Repair Vulva, External Approach (ICD-10-PCS; 2022-03-01)
DX: O40.3XX0 Polyhydramnios, third trimester, not applicable or unspecified (principal); O98.32 Other infections with a predominantly sexual mode of transmission complicating childbirth; Z37.0 Single live birth; F32.A Depression, unspecified; F41.9 Anxiety disorder, unspecified; O71.82 Other specified trauma to perineum and vulva; O99.344 Other mental disorders complicating childbirth; O99.62 Diseases of the digestive system complicating childbirth; A60.09 Herpesviral infection of other urogenital tract; K21.9 Gastro-esophageal reflux disease without esophagitis; Z3A.38 38 weeks gestation of pregnancy; Z88.1 Allergy status to other antibiotic agents; Z86.16 Personal history of COVID-19; Z87.59 Personal history of other complications of pregnancy, childbirth and the puerperium
CPT/HCPCS: 59025; 80306; 85025; 86850; 86900; 86901; 88307; 99213

== ENCOUNTER 2022-06-11 11:55 | Emergency (ER) | payer OTHER ==
[2022-06-11] MEDS ORDERED: ACETAMINOPHEN TAB 325 MG TAB PO STA (12:31)
[2022-06-11] MEDS ORDERED: IBUPROFEN 800 MG TAB PO STA (12:31)
--- NOTE | 2022-06-11 12:31 | ED ---
Female Urogenital HPI - General Chief complaint: Urogenital Stated complaint: UTI Time Seen by Provider: 06/11/22 12:12 Source: patient, RN notes reviewed, old records reviewed Mode of arrival: ambulatory Limitations: no limitations - History of Present Illness Initial comments: Well-appearing 21-year-old female presents with dysuria and pelvic pain. She states was put on Flagyl 2 weeks ago by her primary care doctor after a telehealth visit after she described symptoms of bacterial vaginosis. She states her symptoms did not resolve and started to have itching and contacted the doctor who then prescribed Diflucan. She went to urgent care today and had urinalysis and found that she has urinary tract infection. She was sent to the emergency room due to increased vaginal pain. Negative for . States is on control pills. Denies any nausea vomiting diarrhea or fevers. MD Complaint: dysuria -: week(s) (2) Radiation: non-radiating Severity scale (1-10): 8 Consistency: constant Worsens with: urination Last Menstrual Period: 05/20/22 Patient : No - Related Data Home Medications Medication Instructions Recorded Confirmed valACYclovir HCL [Valtrex] 1,000 mg PO DAILY 03/14/21 06/11/22 Escitalopram [Lexapro] 20 mg PO DAILY 02/27/22 06/11/22 Famotidine 20 mg PO DAILY PRN 02/27/22 06/11/22 ARIPiprazole 5 mg PO DAILY 06/11/22 06/11/22 Estarylla 1 tab PO DAILY 06/11/22 06/11/22 Phentermine HCl [Adipex-P] 37.5 mg PO DAILY 06/11/22 06/11/22 hydrOXYzine pamoate [hydrOXYzine 25 mg PO BID PRN 06/11/22 06/11/22 PAMOATE] methylPREDNISolone [Medrol Dose See Taper PO DIRECTED 06/11/22 06/11/22 Pack] Allergies Allergy/AdvReac Type Severity Reaction Status Date / Time amoxicillin Allergy Mild Rash/Hives/thoat Verified 06/11/22 12:58 [email or web address] Review of Systems ROS Statement: Those systems with pertinent positive or pertinent negative responses have been documented in the HPI. ROS Other: All systems not noted in ROS Statement are negative. Past Medical History Past Medical History: GERD/Reflux Additional Past Medical History / Comment(s): COVID-26 Aug 2020 History of Any Multi-Drug Resistant Organisms: None Reported Past Surgical History: Tonsillectomy Past Anesthesia/Blood Transfusion Reactions: Postoperative Nausea & Vomiting (PONV) Past Psychological History: Anxiety, Depression Smoking Status: Vaper Past Alcohol Use History: None Reported Past Drug Use History: Marijuana - Past Family History Mother Family Medical History: No Reported History General Exam Limitations: no limitations General appearance: alert, in no apparent distress Head exam: Present: atraumatic Eye exam: Present: normal appearance. Absent: scleral icterus, conjunctival injection, periorbital swelling Respiratory exam: Absent: respiratory distress, accessory muscle use Cardiovascular Exam: Present: tachycardia GI/Abdominal exam: Present: soft. Absent: distended, tenderness, guarding, rebound, rigid External exam: Present: normal external exam. Absent: erythema, swelling, lesions, lacerations, ecchymosis Speculum exam: Present: vaginal discharge, cervical discharge (thick mucoid yellow creamy). Absent: erythema, vaginal bleeding, foreign body, tissue, laceration By manual exam: Present: adnexal tenderness (right side) Extremities exam: Present: full ROM, normal capillary refill Neurological exam: Present: alert, oriented X3 Psychiatric exam: Present: normal affect, normal mood Skin exam: Present: warm, dry, normal color. Absent: cyanosis, diaphoretic, petechiae, pallor Course Vital Signs 06/11/22 06/11/22 06/11/22 12:03 12:57 15:01 Temperature 98.4 F 98.4 F 98.3 F Pulse Rate 123 H 105 H 96 Respiratory 22 18 16 Rate Blood Pressure 130/82 123/84 127/80 O2 Sat by Pulse 98 99 97 Oximetry Medical Decision Making - Medical Decision Making Patient presents with 2 weeks of dysuria and vaginal discharge. She did finish a course of Flagyl prescribed by her doctor for BV. Her doctor also prescribed Diflucan. She continues to have vaginal irritation and discharge she went to urgent care and wast told she had a UTI. Pelvic exam was completed showing thick mucoid creamy white discharge. No erythema. She does have right adnexal pain on exam. Ultrasound was ordered. Patient is not . Ultrasound for right adnexal pain shows a thin multiple benign-appearing cyst in the right ovary measuring 3.9 x 3.1 x 3.4. Satisfactory blood flow. Left ovary normal in size. CBC and electrolytes are unremarkable. Urinalysis shows no evidence of infection or . Patient will be treated for gonorrhea and chlamydia. She just finished Flagyl treatment for bacterial vaginosis which did not improve her symptoms. Trichomonas is negative. Patient's right adnexal pain is likely related to the ovarian cyst. She was directed to follow up with her primary care doctor and [facility] for continuation of care. Return to the emergency room with any new or concerning symptoms. Patient is agreeable to this plan of care. Case discussed with Dr. Flores. - Lab Data Result diagrams: 06/11/22 13:37 06/11/22 13:37 Lab Results 06/11/22 06/11/22 06/11/22 Range/Units 12:17 12:17 13:25 WBC (3.8-10.6) k/uL RBC (3.80-5.40) m/uL Hgb (11.4-16.0) gm/dL Hct (34.0-46.0) % MCV (80.0-100.0) fL MCH (25.0-35.0) pg MCHC (31.0-37.0) g/dL RDW (11.5-15.5) % Plt Count (150-450) k/uL MPV Neutrophils % % Lymphocytes % % Monocytes % % Eosinophils % % Basophils % % Neutrophils # (1.3-7.7) k/uL Lymphocytes # (1.0-4.8) k/uL Monocytes # (0-1.0) k/uL Eosinophils # (0-0.7) k/uL Basophils # (0-0.2) k/uL Sodium (137-145) mmol/L Potassium (3.5-5.1) mmol/L Chloride (98-107) mmol/L Carbon Dioxide (22-30) mmol/L Anion Gap mmol/L BUN (7-17) mg/dL Creatinine (0.52-1.04) mg/dL Est GFR (CKD-EPI)AfAm (>60 ml/min/1.73 sqM) Est GFR (CKD-EPI)NonAf (>60 ml/min/1.73 sqM) Glucose (74-99) mg/dL Calcium (8.4-10.2) mg/dL Total Bilirubin (0.2-1.3) mg/dL AST (14-36) U/L ALT (4-34) U/L Alkaline Phosphatase (38-126) U/L Total Protein (6.3-8.2) g/dL Albumin (3.5-5.0) g/dL Urine Color Yellow Urine Appearance Clear (Clear) Urine pH 7.0 (5.0-8.0) Ur Specific [place] 1.015 (1.001-1.035) Urine Protein Negative (Negative) Urine Glucose (UA) Negative (Negative) Urine Ketones Negative (Negative) Urine Blood Negative (Negative) Urine Nitrite Negative (Negative) Urine Bilirubin Negative (Negative) Urine Urobilinogen <2.0 (<2.0) mg/dL Ur Leukocyte Esterase Trace H (Negative) Urine RBC <1 (0-5) /hpf Urine WBC 1 (0-5) /hpf Ur Squamous Epith Cells 2 (0-4) /hpf Urine Bacteria Rare H (None) /hpf Urine Mucus Rare H (None) /hpf Urine HCG, Qual Not Detected (Not Detectd) Trichomonas Ag (Rapid) Negative (Negative) 06/11/22 06/11/22 Range/Units 13:37 13:37 WBC 9.5 (3.8-10.6) k/uL RBC 4.56 (3.80-5.40) m/uL Hgb 14.0 (11.4-16.0) gm/dL Hct 40.8 (34.0-46.0) % MCV 89.4 (80.0-100.0) fL MCH 30.6 (25.0-35.0) pg MCHC 34.2 (31.0-37.0) g/dL RDW 12.3 (11.5-15.5) % Plt Count 304 (150-450) k/uL MPV 7.9 Neutrophils % 81 % Lymphocytes % 14 % Monocytes % 3 % Eosinophils % 1 % Basophils % 1 % Neutrophils # 7.7 (1.3-7.7) k/uL Lymphocytes # 1.3 (1.0-4.8) k/uL Monocytes # 0.3 (0-1.0) k/uL Eosinophils # 0.1 (0-0.7) k/uL Basophils # 0.1 (0-0.2) k/uL Sodium 139 (137-145) mmol/L Potassium 4.9 (3.5-5.1) mmol/L Chloride 103 (98-107) mmol/L Carbon Dioxide 24 (22-30) mmol/L Anion Gap 12 mmol/L BUN 14 (7-17) mg/dL Creatinine 0.78 (0.52-1.04) mg/dL Est GFR (CKD-EPI)AfAm >90 (>60 ml/min/1.73 sqM) Est GFR (CKD-EPI)NonAf >90 (>60 ml/min/1.73 sqM) Glucose 91 (74-99) mg/dL Calcium 9.7 (8.4-10.2) mg/dL Total Bilirubin 0.6 (0.2-1.3) mg/dL AST 57 H (14-36) U/L ALT 58 H (4-34) U/L Alkaline Phosphatase 85 (38-126) U/L Total Protein 7.8 (6.3-8.2) g/dL Albumin 4.8 (3.5-5.0) g/dL Urine Color Urine Appearance (Clear) Urine pH (5.0-8.0) Ur Specific [place] (1.001-1.035) Urine Protein (Negative) Urine Glucose (UA) (Negative) Urine Ketones (Negative) Urine Blood (Negative) Urine Nitrite (Negative) Urine Bilirubin (Negative) Urine Urobilinogen (<2.0) mg/dL Ur Leukocyte Esterase (Negative) Urine RBC (0-5) /hpf Urine WBC (0-5) /hpf Ur Squamous Epith Cells (0-4) /hpf Urine Bacteria (None) /hpf Urine Mucus (None) /hpf Urine HCG, Qual (Not Detectd) Trichomonas Ag (Rapid) (Negative) Disposition Clinical Impression: Ovarian cyst, Pelvic pain, Vaginal discharge Disposition: HOME SELF-CARE Condition: Good Instructions (If sedation given, give patient instructions): Ovarian Cyst (ED), Pelvic Pain in Women (ED), Vaginal Discharge (ED) Additional Instructions: Take Tylenol and or Motrin as needed for any pain or discomfort. You can also use warm compresses. Call for culture results in 72 hours. Do not have sexual intercourse until your culture results are back and negative. Follow-up with your primary care doctor this week. Return to the emergency room with any new or concerning symptoms. Is patient prescribed a controlled substance at d/c from ED?: No Referrals: Jaison Lamb MD [Primary Care Provider] - 1-2 days Time of Disposition: 14:42
[2022-06-11] MEDS ORDERED: ONDANSETRON ODT 4 MG TAB PO STA (12:47)
[2022-06-11 12:59] LABS: Appearance,Urine Clear (Clear); Bacteria,Urine Rare /hpf; Bilirubin,Urine Negative (Negative); Blood,Urine Negative (Negative); Color,Urine Yellow; Glucose,Urine (UA) Negative (Negative); Ketones,Urine Negative (Negative); Leukocyte Esterase,Urine Trace (Negative); Mucus,Urine Rare /hpf; Nitrite,Urine Negative (Negative); Protein,Urine Negative (Negative); RBC,Urine <1 /hpf (0-5); Specific Gravity,Urine 1.015 (1.001-1.035); Squamous Epithelial Cell,Urine 2 /hpf (0-4); Urobilinogen,Urine <2.0 mg/dL (<2.0); WBC,Urine 1 /hpf (0-5)
[2022-06-11] MEDS ORDERED: AZITHROMYCIN 500 MG TAB PO STA (13:28)
[2022-06-11] MEDS ORDERED: GENTAMICIN 40 MG/ML 2 ML VIAL IM STA (13:31)
[2022-06-11 13:47] LABS: Basophils # (A) 0.1 k/uL (0-0.2); Basophils % (A) 1 %; Eosinophils # (A) 0.1 k/uL (0-0.7); Eosinophils % (A) 1 %; HCT 40.8 % (34.0-46.0); Lymphocytes # (A) 1.3 k/uL (1.0-4.8); Lymphocytes % (A) 14 %; MCH 30.6 pg (25.0-35.0); MCHC 34.2 g/dL (31.0-37.0); MCV 89.4 fL (80.0-100.0); Mean Platelet Volume 7.9; Monocytes # (A) 0.3 k/uL (0-1.0); Monocytes % (A) 3 %; Neutrophils # (A) 7.7 k/uL (1.3-7.7); Neutrophils % (A) 81 %; Platelet Count 304 k/uL (150-450); RBC 4.56 m/uL (3.80-5.40); RDW 12.3 % (11.5-15.5); WBC 9.5 k/uL (3.8-10.6)
[2022-06-11 13:57] LABS: ALT 58 U/L (4-34); AST 57 U/L (14-36); African American GFR (CKD) >90 (>60 ml/min/1.73 sqM); Albumin 4.8 g/dL (3.5-5.0); Alkaline Phosphatase 85 U/L (38-126); Anion Gap 12 mmol/L; Blood Urea Nitrogen 14 mg/dL (7-17); Calcium 9.7 mg/dL (8.4-10.2); Carbon Dioxide 24 mmol/L (22-30); Chloride 103 mmol/L (98-107); Glucose 91 mg/dL (74-99); Non-African American GFR(CKD) >90 (>60 ml/min/1.73 sqM); Potassium 4.9 mmol/L (3.5-5.1); Sodium 139 mmol/L (137-145); Total Bilirubin 0.6 mg/dL (0.2-1.3); Total Protein 7.8 g/dL (6.3-8.2)
--- NOTE | 2022-06-11 14:38 | US ---
EXAMINATION TYPE: US pelvic complete DATE OF EXAM: 06/11/2022 COMPARISON: March 17, 2021 CT. Transvaginal ultrasound January 22, 2021 CLINICAL HISTORY: right lower quadrant pain. TECHNIQUE: . Transabdominal sonographic images of the pelvis were acquired. Date of LMP: 05/20/2022 EXAM MEASUREMENTS: Uterus: 9.0 x 4.6 x 5.7 cm Endometrial Stripe: 0.56 cm Right Ovary: 4.5 x 3.4 x 3.8 cm Left Ovary: 2.0 x 1.5 x 1.8 cm 1. Uterus: Anteverted wnl 2. Endometrium: wnl 3. Right Ovary: Anechoic mass 3.9 x 3.1 x 3.4 cm. 4. Left Ovary: wnl Spectral, color and waveform doppler imaging shows good arterial and venous flow within the ovaries 5. Bilateral Adnexa: wnl 6. Posterior cul-de-sac: wnl Anteverted uterus. Endometrial stripe measures within normal limits. No free fluid. There is new 3.9 x 3.1 x 3.4 cm thin-walled benign-appearing cyst in the right ovary on current study . Satisfactory blood flow to surrounding right ovarian tissue seen on color images. Left ovary normal in size. IMPRESSION: As above.
[2022-06-11 15:02] VITALS: BP 127/80; PULSE 96; RESP 16; TEMP 98.3
[2022-06-12 10:24] LABS: Chlamydia trachomatis rRNA Not detected (Not detected); Neisseria gonorrhoeae rRNA Not detected (Not detected)
== END 2022-06-11 15:02 | disposition home or self-care (01) ==
LOC: EC 11:55
DX: N83.201 Unspecified ovarian cyst, right side (principal); R10.2 Pelvic and perineal pain; N89.8 Other specified noninflammatory disorders of vagina; K21.9 Gastro-esophageal reflux disease without esophagitis; F41.9 Anxiety disorder, unspecified; F32.A Depression, unspecified; F17.290 Nicotine dependence, other tobacco product, uncomplicated; F12.90 Cannabis use, unspecified, uncomplicated; Z88.1 Allergy status to other antibiotic agents; Z79.899 Other long term (current) drug therapy
CPT/HCPCS: 36415; 80053; 87591; 87491; 85025; 81001; 81025; 87808; 93975; 76856; 99284; 96372; J1580

== ENCOUNTER → 2022-11-22 | Outpatient (CLI) | payer OTHER ==
--- NOTE | 2022-11-23 01:21 | MR ---
EXAMINATION TYPE: MR brain wo/w con DATE OF EXAM: 11/22/2022 COMPARISON: None HISTORY: Eye floaters, eye pain during movement, blurred vision in right eye for 2-3 months. CONTRAST: Standard multiplanar, multisequence MRI departmental protocol images were obtained without contrast a nd with 9 mL intravenous Gadavist gadolinium contrast. Ventricles and sulci appear normal. There is no mass effect or midline shift. No sign of intracranial hemorrhage. Diffusion images show no sign of an acute infarct. Brainstem is intact. Cerebellum appea rs normal. Sella turcica appears normal. Corpus callosum appears normal. There is no evidence of orbital mass. Alexis and white matter is structures have fairly normal signal p attern. No evidence of cerebral edema. There is no pathologic enhancement. There is normal enhancemen t of the venous sinuses. IMPRESSION: Negative MR scan of the brain.
== END | disposition home or self-care (01) ==
LOC: RADMRIMAIN 22:30
PROVIDERS: ATTEND Ophthalmology
DX: H53.483 Generalized contraction of visual field, bilateral (principal)
CPT/HCPCS: 70553; A9585

== ENCOUNTER → 2023-09-09 | Outpatient (CLI) | payer BC, OTHER ==
--- NOTE | 2023-09-09 12:24 | MR ---
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 TECHNIQUE: Multi planar, multi sequence imaging was performed through the orbits/face. Post contrast imaging was performed after the administration of 7.5 cc of Gadavist intravenously. FINDINGS, ORBITS: The globes appear symmetrical. Orbital contents are intact. Signal intensity of th e optic nerves are within normal limits. The intraorbital fat appears preserved. Both lacrimal glan ds are unremarkable. The extraocular muscles appear symmetric. After administration of contrast, no a bnormal enhancement is seen. FINDINGS, BRAIN: The cazares-white junctions, ventricular system, and cisterns do appear unremarkable. Cavernous sinus is within normal limits. After administration of contrast, no abnormal enhancement is seen within the brain. The bone marrow signal is within normal limits. Paranasal sinuses and mastoid air cells: No significant paranasal sinus disease. Visualized orbits: Orbital contents are intact. IMPRESSION: 1. No evidence of intraorbital mass or significant abnormality. The optic nerves appear symmetric. 2. No evidence of intracranial mass nor acute/subacute CVA accident. 3. Nonspecific white matter changes are identified likely small vessel ischemic disease.
== END | disposition home or self-care (01) ==
LOC: RADMRIMAIN 10:13
PROVIDERS: ATTEND Optometrist
DX: G93.89 Other specified disorders of brain (principal); H46.02 Optic papillitis, left eye; G43.109 Migraine with aura, not intractable, without status migrainosus; H53.8 Other visual disturbances
CPT/HCPCS: 70543; A9585

== ENCOUNTER 2024-02-19 13:40 | Inpatient (IN) | payer MEDICAID, OTHER ==
--- NOTE | 2024-02-19 14:51 | ED ---
General Adult HPI - General Source: patient, RN notes reviewed, old records reviewed Mode of arrival: ambulatory Limitations: no limitations <Marvin Stahl - Last Filed: 02/19/24 14:48> - General Source: RN notes reviewed, old records reviewed Mode of arrival: ambulatory Limitations: no limitations <Matt Joel - Last Filed: 02/19/24 17:05> - General Chief complaint: Psychiatric Symptoms Stated complaint: mental health Time Seen by Provider: 02/19/24 14:09 - History of Present Illness Initial comments: Is a 23-year-old female presents emergency department for psychiatric evaluation. Was brought in by her sister. Has been feeling more depressed, and states she does not want to live. Is progressively worsened. Last night drank alcohol and took 4 of her normal Xanax medications. Denies any other ingestions. States she awoke this morning, still feeling bad. Presents for further evaluation. Denies homicidal ideations, times complaints. Denies any nausea or vomiting. Presents for further evaluation at this time. Denies homicidal ideations, times complaints. Denies any hallucinations. (Marvin Stahl) This is a 23-year-old male for psychiatric evaluation brought in by family MD for inpatient psychiatric evaluation and treatment (Matt Joel) - Related Data Home Medications Medication Instructions Recorded Confirmed valACYclovir HCL [Valtrex] 1,000 mg PO DAILY 03/14/21 02/19/24 Estarylla 1 tab PO DAILY 06/11/22 02/19/24 ALPRAZolam [Xanax] 0.5 mg PO DAILY PRN 02/19/24 02/19/24 Galcanezumab-Gnlm [Emgality 120 mg SQ QMONTHLY 02/19/24 02/19/24 Syringe] Nitrofurantoin Monohyd/M-Cryst 100 mg PO DAILY PRN 02/19/24 02/19/24 [Macrobid] Topiramate [Topamax] 25 mg PO DAILY 02/19/24 02/19/24 Venlafaxine HCl [Effexor] 75 mg PO BID 02/19/24 02/19/24 metFORMIN HCL [Glucophage] 500 mg PO BID 02/19/24 02/19/24 Allergies Allergy/AdvReac Type Severity Reaction Status Date / Time amoxicillin Allergy Mild Rash/Hives/thoat Verified 02/19/24 14:45 sina Review of Systems ROS Other: All systems not noted in ROS Statement are negative. <Marvin Stahl - Last Filed: 02/19/24 14:48> ROS Other: All systems not noted in ROS Statement are negative. <Matt Jeol - Last Filed: 02/19/24 17:05> ROS Statement: Those systems with pertinent positive or pertinent negative responses have been documented in the HPI. Review of Systems: CONST: Denies fever EYES: Denies blurry vision ENT: Denies nasal congestion C/V: Denies Chest pain RESP: Denies shortness of breath GI: Denies abdominal pain : Denies dysuria SKIN: Denies rash. MSK: Denies joint pain. NEURO: Denies headache (Marvin Stahl) Past Medical History Past Medical History: GERD/Reflux Additional Past Medical History / Comment(s): COVID-26 Aug 2020 History of Any Multi-Drug Resistant Organisms: None Reported Past Surgical History: Tonsillectomy Past Anesthesia/Blood Transfusion Reactions: Postoperative Nausea & Vomiting (PONV) Past Psychological History: Anxiety, Depression Smoking Status: Current every day smoker, Vaper Past Alcohol Use History: Occasional Past Drug Use History: None Reported - Past Family History Mother Family Medical History: No Reported History <Marvin Stahl - Last Filed: 02/19/24 14:48> General Exam Limitations: no limitations <Marvin Stahl - Last Filed: 02/19/24 14:48> General appearance: alert, in no apparent distress, anxious Head exam: Present: atraumatic, normocephalic, normal inspection Eye exam: Present: normal appearance, PERRL, EOMI. Absent: scleral icterus, conjunctival injection, periorbital swelling ENT exam: Present: normal exam, mucous membranes moist Neck exam: Present: normal inspection. Absent: tenderness, meningismus, lymphadenopathy Respiratory exam: Present: normal lung sounds bilaterally. Absent: respiratory distress, wheezes, rales, rhonchi, stridor Cardiovascular Exam: Present: normal rhythm, tachycardia, normal heart sounds. Absent: systolic murmur, diastolic murmur, rubs, gallop, clicks GI/Abdominal exam: Present: soft, normal bowel sounds. Absent: distended, tenderness, guarding, rebound, rigid Extremities exam: Present: normal inspection, full ROM, normal capillary refill. Absent: tenderness, pedal edema, joint swelling, calf tenderness Back exam: Present: normal inspection Neurological exam: Present: alert, oriented X3, CN II-XII intact Psychiatric exam: Present: normal affect, normal mood Skin exam: Present: warm, dry, intact, normal color. Absent: rash <Matt Joel - Last Filed: 02/19/24 17:05> - General Exam Comments Initial Comments: General: Appears in no acute distress. HEAD: Normal with no signs of head trauma. EYES: EOMI ENT: Hearing grossly intact, normal oropharynx. RESPIRATORY: Clear breath sounds bilaterally. No wheezes, rales, or rhonchi. C/V: Regular rate and rhythm. S1 and S2 auscultated, peripheral pulses 2+ and intact throughout ABD: Abd is soft, nontender, nondistended EXT: no obvious deformity SKIN: No rashes or lesions observed on exposed skin. NEURO: Alert and oriented x 4. (Marvin Stahl) Course <Matt Joel - Last Filed: 02/19/24 17:05> Vital Signs 02/19/24 02/19/24 13:56 16:23 Temperature 98.0 F Pulse Rate 106 H 106 H Respiratory 18 18 Rate Blood Pressure 119/70 O2 Sat by Pulse 97 96 Oximetry - Reevaluation(s) Reevaluation #1: 02/19/24 17:04 Records are reviewed (Matt Joel) Reevaluation #2: 02/19/24 17:04 Medically cleared for psychiatric evaluation Patient informed of results and questions answered (Matt Joel) Medical Decision Making <Marvin Stahl - Last Filed: 02/19/24 14:48> <Matt Joel - Last Filed: 02/19/24 17:05> - Medical Decision Making Was pt. sent in by a medical professional or institution ([facility], [facility], urgent care, hospital, or [facility]...) When possible be specific @ -No Did you speak to anyone other than the patient for history (EMS, parent, family, police, friend...)? What history was obtained from this source @ -No Did you review nursing and triage notes (agree or disagree)? Why? @ -I reviewed and agree with nursing and triage notes Were old charts reviewed (outside hosp., previous admission, EMS record, old EKG, old radiological studies, urgent care reports/EKG's, [facility] records)? Report findings @ -No old charts were reviewed Differential Diagnosis (chest pain, altered mental status, abdominal pain women, abdominal pain men, vaginal bleeding, weakness, fever, dyspnea, syncope, headache, dizziness, GI bleed, back pain, seizure, CVA, palpatations, mental health, musculoskeletal)? @ -Differential Mental Health Depression, anxiety, bipolar, psychosis, schizophrenia, borderline personality, situational depression, adjustment disorder, behavioral disorder, brain tumor, malingering, substance abuse, encephalopathy, medication reaction, dementia, hypothyroidism, degenerative neurologic disorder, lupus.... This is not meant to be all-inclusive list EKG interpreted by me (3pts min.). @ -None done X-rays interpreted by me (1pt min.). @ -None done CT interpreted by me (1pt min.). @ -None done U/S interpreted by me (1pt. min.). @ -None done What testing was considered but not performed or refused? (CT, X-rays, U/S, labs)? Why? @ -None What meds were considered but not given or refused? Why? @ -None Did you discuss the management of the patient with other professionals (professionals i.e. , PA, SCRAP BREAKER, lab, RT, psych nurse, public health social worker, emu farm worker, teacher, security control room officer, telehealth case manager)? Give summary @ -EPS notified of the consult Was smoking cessation discussed for >3mins.? @ -No Was critical care preformed (if so, how long)? @ -No Were there social determinants of health that impacted care today? How? (Homelessness, low income, unemployed, alcoholism, drug addiction, transportation, low edu. Level, literacy, decrease access to med. care, long-term, rehab)? @ -No Was there de-escalation of care discussed even if they declined (Discuss DNR or withdrawal of care, Hospice)? DNR status @ -No What co-morbidities impacted this encounter? (DM, HTN, Smoking, COPD, CAD, Cancer, CVA, ARF, Chemo, Hep., AIDS, mental health diagnosis, sleep apnea, morbid obesity)? @ -None Was patient admitted / discharged? Hospital course, mention meds given and route, prescriptions, significant lab abnormalities, going to OR and other pertinent info. @ -Based on patient's presentation and physical exam, presents for psychiatric evaluation. Endorses drinking alcohol last night and taking for Xanax. States it was intent to self-harm. Has been feeling more depressed. Sitter ordered. Suicide precautions ordered. BAT is 0. UDS is pending. Vital signs within acceptable limits. At this time, patient is medically cleared for evaluation by psychiatry. Disposition pending psychiatric evaluation. EPS notified of the consult. Undiagnosed new problem with uncertain prognosis? @ -No Drug Therapy requiring intensive monitoring for toxicity (Heparin, Nitro, Insulin, Cardizem)? @ -No Were any procedures done? @ -No (Marvin Stahl) 23 female will be transferred for inpatient psychiatric evaluation and treatment (Matt Joel) - Lab Data Lab Results 02/19/24 Range/Units 14:42 Urine Opiates Screen Not Detected (NotDetected) Ur Oxycodone Screen Not Detected (NotDetected) Urine Methadone Screen Not Detected (NotDetected) Ur Barbiturates Screen Not Detected (NotDetected) U Tricyclic Antidepress Not Detected (NotDetected) Ur Phencyclidine Scrn Not Detected (NotDetected) Ur Amphetamines Screen Not Detected (NotDetected) U Methamphetamines Scrn Not Detected (NotDetected) U Benzodiazepines Scrn Detected H (NotDetected) Urine Cocaine Screen Detected H (NotDetected) U Marijuana (THC) Screen Not Detected (NotDetected) Disposition <Marvin Stahl - Last Filed: 02/19/24 14:48> Is patient prescribed a controlled substance at d/c from ED?: No <Matt Joel - Last Filed: 02/19/24 17:05> Clinical Impression: Suicidal ideation, Depression, Acute anxiety, Adjustment reaction of adult life, Psychosis Disposition: TRANSFER TO PSYCH HOSP/UNIT Condition: Fair Referrals: Jaison Lamb MD [Primary Care Provider] - 1-2 days
[2024-02-19] MEDS: ONDANSETRON ODT 4 MG TAB PO STA (15:00)
[2024-02-19 16:13] LABS: Amphetamine Screen,Urine Not Detected (NotDetected); Barbiturate Screen,Urine Not Detected (NotDetected); Benzodiazepines Screen,Urine Detected (NotDetected); Cocaine Screen,Urine Detected (NotDetected); Methadone Screen, Urine Not Detected (NotDetected); Opiate Screen,Urine Not Detected (NotDetected); Oxycodone Screen, Urine Not Detected (NotDetected); Phencyclidine Screen,Urine Not Detected (NotDetected); Tricyclic Antidepressant,Urine Not Detected (NotDetected); Urn Cannabinoid Scrn Not Detected (NotDetected)
[2024-02-19] MEDS ORDERED: MAG HYDROX/AL HYDROX/SIMETH 355 ML BOTTLE PO PRN (19:59)
[2024-02-19] MEDS ORDERED: ALPRAZolam 0.5 MG TAB PO PRN (20:02)
[2024-02-19] MEDS ORDERED: haloperidoL 5 MG TAB PO PRN (20:03)
[2024-02-19] MEDS ORDERED: LORazepam 2 MG/ML INJ IM PRN (20:03)
[2024-02-19] MEDS ORDERED: HALOPERIDOL LACTATE 5 MG/ML 1 ML VIAL IM PRN (20:03)
[2024-02-19 20:13] LABS: Appearance,Urine Clear (Clear); Bilirubin,Urine Negative (Negative); Blood,Urine Negative (Negative); Color,Urine Light Yellow; Glucose,Urine (UA) Negative (Negative); Ketones,Urine Negative (Negative); Leukocyte Esterase,Urine Negative (Negative); Nitrite,Urine Negative (Negative); Protein,Urine Negative (Negative); Specific Gravity,Urine 1.026 (1.001-1.035); Urobilinogen,Urine <2.0 mg/dL (<2.0)
[2024-02-19] MEDS: VENLAFAXINE HCL 75 MG TAB PO SCH (21:20)
[2024-02-19] MEDS: metFORMIN 500 MG TAB PO SCH (21:20)
[2024-02-19] MEDS: LORazepam 1 MG TAB PO PRN (21:37)
[2024-02-20] MEDS: NICOTINE 14MG/24HR PATCH TRANSDERM SCH (08:13)
[2024-02-20] MEDS: TOPIRAMATE 25 MG TAB PO SCH ×2 (08:13→20:37)
[2024-02-20] MEDS: valACYclovir HCL 1,000 MG TABLET PO SCH (08:13)
[2024-02-20] MEDS: IBUPROFEN 600 MG TAB PO PRN (09:24)
[2024-02-20 11:20] LABS: Basophils % (A) 0 %; Eosinophils # (A) 0.1 k/uL (0-0.7); Eosinophils % (A) 1 %; HCT 44.5 % (34.0-46.0); HGB 14.4 gm/dL (11.4-16.0); Lymphocytes # (A) 1.7 k/uL (1.0-4.8); Lymphocytes % (A) 18 %; MCHC 32.3 g/dL (31.0-37.0); Mean Platelet Volume 7.8; Monocytes # (A) 0.5 k/uL (0-1.0); Monocytes % (A) 5 %; Neutrophils # (A) 6.9 k/uL (1.3-7.7); Neutrophils % (A) 74 %; Platelet Count 314 k/uL (150-450); RBC 4.63 m/uL (3.80-5.40); RDW 12.2 % (11.5-15.5); WBC 9.3 k/uL (3.8-10.6)
[2024-02-20 11:46] LABS: ALT 37 U/L (4-34); AST 35 U/L (14-36); African American GFR (CKD) >90 (>60 ml/min/1.73 sqM); Albumin 4.8 g/dL (3.5-5.0); Alkaline Phosphatase 66 U/L (38-126); Anion Gap 6 mmol/L; Blood Urea Nitrogen 9 mg/dL (7-17); Calcium 9.8 mg/dL (8.4-10.2); Carbon Dioxide 27 mmol/L (22-30); Chloride 102 mmol/L (98-107); Glucose 74 mg/dL (74-99); Non-African American GFR(CKD) >90 (>60 ml/min/1.73 sqM); Potassium 4.6 mmol/L (3.5-5.1); Sodium 135 mmol/L (137-145); Total Bilirubin 0.9 mg/dL (0.2-1.3); Total Protein 7.7 g/dL (6.3-8.2)
[2024-02-20] MEDS: lamoTRIgine 25 MG TAB PO ONE (12:34)
[2024-02-20] MEDS: NICOTINE 21MG/24HR PATCH TRANSDERM SCH (12:34)
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
[2024-02-20] MEDS: VENLAFAXINE HCL 75 MG TAB PO ONE (14:47)
[2024-02-20] MEDS: metFORMIN 500 MG TAB PO SCH (15:50)
[2024-02-20] MEDS ORDERED: traZODone HCL 50 MG TAB PO PRN (21:00)
[2024-02-20] MEDS: MAGNESIUM HYDROXIDE 2,400 MG/30 ML CUP PO PRN (21:56)
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
[2024-02-21] MEDS: VENLAFAXINE HCL ER 150 MG CAP PO SCH (08:47)
[2024-02-21] MEDS: lamoTRIgine 25 MG TAB PO SCH (08:47)
[2024-02-21] MEDS ORDERED: DOCUSATE 100 MG CAP PO PRN (11:34)
--- NOTE | 2024-02-21 13:29 | P.PN ---
Subjective Progress Note Date: 02/21/24 Principal diagnosis: Bipolar disorder2 Subjective: The patient is significant history of panic attacks which was relieved first by Lexapro and now by Effexor and she really likes to benefits of Effexor. I however she also has significant manic episodes in the past although more recently they've been depressed. She was taking Abilify with Lexapro gaining weight probably from the Abilify is unusual possible however the combination worked really well on both her mood swings and panics. She would like to find something that work like Abilify on dopamine 2 and didn't gain we ight. Objective pleasant alert oriented good eye contact excellent self care quick response times without being pressured does not seem to be either manic or depressed at this point however on Lamictal by itself should be and dangers that she was venlafaxine on board of going into a manic episode. So we talked about adding something along the lines of Latuda or Trileptal to prevent. What she re ally wants to do is get back to a similar formula as she was on before Assessment patient has both panic attacks suggesting low serotonin which should respond well to the venlafaxine she understands about the short half-life and the need to take it dependent. She is also has bipolar with mild highs and significant depressions probably bipolar 2. Plan I want try somewhat to do to see if she tolerates she was doing well on just 5 mg of Abilify so 20 mg of Latuda should work. And then that Effexor she would rather not take the Lamictal. We'll try some Latuda tomorrow morning and see if it makes her sleepy Objective - Vital Signs Vital signs: Vital Signs Temp 97.2 F L 02/21/24 06:57 Pulse 86 02/21/24 06:57 Resp 17 02/21/24 06:57 BP 110/60 02/21/24 06:57 Pulse Ox 100 02/21/24 06:57 FiO2 - Labs CBC & Chem 7: 02/20/24 10:37 02/20/24 10:37
[2024-02-22] MEDS: LURASIDONE 20 MG TAB PO SCH (09:11)
--- NOTE | 2024-02-22 10:21 | P.PN ---
Subjective Progress Note Date: 02/22/24 Principal diagnosis: Bipolar disorder2 Subjective: The patient is significant history of panic attacks which was relieved first by Lexapro and now by Effexor and she really likes to benefits of Effexor. She also has significant manic episodes in the past although more recently they've been depressed. She was taking Abilify with Lexapro and gaining weight probably from the Abilify, however the combination worked really well on both her mood swings and panics. She would like to find something that works like Abilify on dopamine 2 and doesn't make you gain weight. So we tried Latuda add low dose because she was on low-dose Abilify one that worked. Does not make her sleep even though she took in the morning he does not feel restless and is hopeful that that will do the trick. Objective: She is pleasant alert oriented good eye contact excellent self care quick response times without being pressured. She does not seem to be either manic or depressed at this point. With Latuda she should be protected from the danger of venlafaxine pushing her s into a manic episode. Assessment: patient has both panic attacks suggesting low serotonin which should respond well to the venlafaxine she understands about the short half-life and the need to take it dependably. She is also has bipolar with mild highs and significant depressions probably bipolar 2 that should do well on the Latuda although it may need to be increased from 20 which is a low dose. Plan: I encouraged her to write out a stability plan presented to the team tomorrow. Objective - Vital Signs Vital signs: Vital Signs Temp 97.9 F 02/22/24 06:45 Pulse 88 02/22/24 06:45 Resp 14 02/22/24 06:45 BP 105/59 02/22/24 06:45 Pulse Ox 100 02/21/24 06:57 FiO2 - Labs CBC & Chem 7: 02/20/24 10:37 02/20/24 10:37
--- NOTE | 2024-02-23 12:41 | P.PN ---
Progress Note - Text Progress Note Date: 02/23/24 Interval History: [facility] and was directable and agreeable to speak with telegraphic typewriter operator in the office. Patient stated that she is doing fantastic today. Patient states that she is sleeping well at night, and her appetite is improving. Patient is concerned about her job. She claims her job texted her phone, and asked her if she was quitting. She states she loves her job, and she would like to return there upon discharge. Manager Apple spoke with patient about the [facility] doctor over the weekend putting her on Latuda, and how it may not be covered by her insurance. Patient wanted to remain on the medication, stating that she would pay out of pocket for it if need be. At this time patient denies any suicidal or homicidal ideations, intent or plan. Patient denies any auditory, visual hallucinations and denies any paranoia or delusions. Patient denies any side effects from the medications and has been compliant with meds. MENTAL STATUS EXAM: General Appearance: Patient appears to be stated age is alert, directable, and attempts to cooperate. Patient appears to have fair hygiene and grooming. Long hair, nose and ear piercings. Wearing glasses. Behavior: Patient is seated without any agitated behavior. Attempts to cooperate. Speech: Patient's speech is fluent and nonpressured. Mood/Affect: Patient reports their mood is ok, affect is congruent and improving mildly Suicidality/Homicidality: Patient denies having any homicidal ideation intent or plan. Denies any suicidal ideations intent or plan Perceptions: Patient denies any visual hallucinations and denies any auditory hallucinations Though content/process: There is no evidence of any delusional thought content and thought process is linear and goal-directed. Memory and concentration: AOX3, grossly intact for the purposes of this session. Judgment and insight: poor, improving mildly IMPRESSIONS: bipolar, current episode depressed nicotine dependance cocaine abuse alcohol use disorder PLAN: -Patient is admitted under voluntary status to [facility]HU for stabilization of psychiatric symptoms and safety. -Medications : Latuda 20mg po daily for mood/anxiety. Effexor XR 150mg daily for mood stabilization. trazodone 50mg qhs prn for sleep. metformin 500mg tid for PCOS -Ativan and Haldol PRN for agitation/aggression -NRT - nicotine patch 21mg -SW on board for discharge planning. Encourage patient to participate in groups to work on coping skills. likely discharge friday.
[2024-02-23] MEDS: MELATONIN 5 MG TABLET PO PRN (21:27)
[2024-02-24 07:08] VITALS: TEMP 98.1
[2024-02-24] MEDS: ACETAMINOPHEN TAB 325 MG TAB PO PRN (09:16)
--- NOTE | 2024-02-24 09:32 | P.PN ---
Progress Note - Text Progress Note Date: 02/24/24 Interval History: Patient was seen in the [facility] and was directable and agreeable to speak with chart writer in the office. Patient stated that she is doing really good today. Patient states that she is sleeping well at night, and her appetite is improving. Patient states that she is waking up in the mornings with a sore throat or a headache due to the 'air quality' in the hospital, which is controlled by tylenol or motrin. Patient offers no other complaints. Patient is attending groups, and participating. claims that her mood is much more stable on this medication. At this time patient denies any suicidal or homicidal ideations, intent or plan. Patient denies any auditory, visual hallucinations and denies any paranoia or delusions. Patient denies any side effects from the medications and has been compliant with meds. MENTAL STATUS EXAM: General Appearance: Patient appears to be stated age is alert, directable, and attempts to cooperate. Patient appears to have fair hygiene and grooming. Long hair, nose and ear piercings. Wearing glasses. Behavior: Patient is seated without any agitated behavior. Patient is much brighter today. Speech: Patient's speech is fluent and nonpressured. Mood/Affect: Patient reports their mood is ok, affect is congruent and improving Suicidality/Homicidality: Patient denies having any homicidal ideation intent or plan. Denies any suicidal ideations intent or plan Perceptions: Patient denies any visual hallucinations and denies any auditory hallucinations Though content/process: There is no evidence of any delusional thought content and thought process is linear and goal-directed. Memory and concentration: AOX3, grossly intact for the purposes of this session. Judgment and insight: improved IMPRESSIONS: bipolar, current episode depressed nicotine dependance cocaine abuse alcohol use disorder PLAN: -Patient is admitted under voluntary status to [facility] for stabilization of psychiatric symptoms and safety. -Medications : Latuda 20mg po daily for mood/anxiety. Effexor XR 150mg daily for mood stabilization. trazodone 50mg qhs prn for sleep. metformin 500mg tid for PCOS, add melatonin 5mg qhs for sleep -Ativan and Haldol PRN for agitation/aggression -NRT - nicotine patch 21mg -SW on board for discharge planning. Encourage patient to participate in groups to work on coping skills. discharge friday.
[2024-02-24] MEDS: MELATONIN 3 MG TABLET PO SCH (21:12)
[2024-02-25 08:38] VITALS: BP 131/78; PULSE 99; RESP 20
--- NOTE | 2024-02-25 10:28 | P.DS ---
Providers Date of admission: 02/19/24 19:46 Expected date of discharge: 02/25/24 Attending physician: Isaac Joyce MD Consults: 02/19/24 19:59 Consult Physician Routine Consulting Provider: Jaison Lamb Consult Reason/Comments: H&P Do you want consulting provider notified?: Yes Primary care physician: Jaison Lamb - Discharge Diagnosis(es) (1) Bipolar disorder current episode depressed Current Visit: Yes Status: Acute Priority: High (2) Nicotine dependence Current Visit: Yes Status: Acute Priority: Low (3) Cocaine abuse Current Visit: Yes Status: Acute Priority: High (4) Alcohol use disorder Current Visit: Yes Status: Acute Priority: Medium Hospital Course: Admission HPI: Admission note was completed by radio script writer "Patient presented to the hospital on 02/18. As per EPS note, "Pt cam to ER with her sister. She states that last night into early this morning she started drinking and took 4 Xanax 0.5mg. She states that she took 8 shots and started to drink from a pint. She denies any hx of WD seizures or WD symptoms. Pt is A&O x4. She is calm and cooperative. During assessment she is tearful and states that she has no will to live or do anything. She states that her lost his license after drunk driving and hitting someone. She states that she is now responsible for driving him to work and he is not able to help take the children anywhere. She states that she has a 1, 3, and 5 year old. She states, "I don't want to be a mother anymore, I don't want to care for kids, last night I didn't feed them any dinner". RN inquired if they had anything to eat and she states they had snacks and the 5 year old gets them food. She states that last night she gave one of her children melatonin at 6pm, "because I just didn't want to do it". She states that her kids are currently with her and mother. "I just don't want to wake up, I don't want to work, I have no motivation for anything". She states that she also attempted to kill herself last week by trying overdose on etoh and xanax. She states thatlast night after taking the xanax and etoh she also used cocaine. She states that she was trying to get access to heroin because she knew she could overdose on that but her mother and sister walked into the house to help her because her called them for help. Last night she believed that someone was in their house when no one was there and the kids were asleep. She is stressed and overwhelemed. Pt is impulsive. She states that "Eating is a chore", she is over sleeping, and lack of motivation to bathe. She states that her pcp increased her Effexor to BID but still only taking it ONCE daily. 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 She states she is feeling very overwhelmed. No motivation to take care of herself or children. She states she was having suicidal thoughts for the past couple weeks, and she was out looking for heroine to overdose on. She states she sleeps too much, appetite fluctuates. Patient denies any suicidal thoughts today. No homicidal ideations intent or plan. At this time patient denies any auditory or visual hallucinations. Patient denies any flight of ideas racing thoughts and increased in goal directed behavior. Patient admits to using alcohol and cocaine. A pint or two of liquor every week. Vapes nicotine." Hospital course: Upon admission to the unit patient was directable and agreeable to commence treatment and signed adult voluntary form. Patient got along well with other patients on the unit and followed unit protocol. Patient was compliant with the medications and denied any side effects throughout hospital course. Patient was started on Latuda 20 mg daily for mood stabilization/depression, Effexor XR 150 mg daily for mood/anxiety, trazodone 50 mg nightly as needed for sleep melatonin 5 mg nightly for sleep. Patient spoke of her stressors and engaged in therapy both group and individual. Patient was also seen by medical team for history and physical exam. Throughout the course of the hospitalization patient gradually improved with regards to mood, anxiety, suicidal thoughts, sleep and became more future oriented with improved insight and judgment. On the day of discharge patient denied any suicidal or homicidal ideations intent or plan denied any auditory or visual hallucinations. Patient endorsed wanting to live for her family and her future. The patient denied any access to guns or weapons. Patient denied any paranoia and did not endorse any delusions. Patient does have a significant history of substance abuse and was counseled on abstaining from all substances including alcohol and marijuana. Patient was offered however declined inpatient substance-abuse rehab. Patient was also counseled on the medications and need for regular compliance and was encouraged to follow-up with their outpatient appointment for mental health and also for primary care. Prior to discharge a family meeting will be arranged by high school social science teacher to answer any questions and ensure safety upon discharge. Mental status exam: General Appearance: Patient appears to be tall, wearing glasses, stated age is alert, pleasant, and cooperative. Patient is in no acute distress and has improved hygiene and grooming Behavior: Patient is calmly seated without any agitated behavior. Speech: Patient's speech is fluent and nonpressured. Mood/Affect: Patient reports their mood is "good", affect is congruent and euthymic. Suicidality/Homicidality: Patient denies having any suicidal or homicidal ideation intent or plan. Perceptions: Patient denies any auditory or visual hallucinations. Though content/process: There is no evidence of any delusional thought content and thought process is linear and goal-directed. More future oriented Memory and concentration: AOX3, grossly intact for the purposes of this session. Can spell "WORLD" backwards correctly. Judgment and insight: improved with guarded prognosis Impression: bipolar, current episode depressed nicotine dependance cocaine abuse alcohol use disorder Plan: -Continue with discharge today as patient has improved and stabilized psychiatrically and is not currently an imminent threat to herself and/or others. Patient will remain at chronically elevated risk for harm to self and/or others due to her impulsivity. -Continue medications: Latuda 20 mg p.o. daily for mood stabilization/depression, Effexor XR 150 mg daily for mood/anxiety, trazodone 50 mg nightly as needed for sleep, melatonin 5 mg nightly for sleep -Patient was counseled on the need for medication compliance and appropriate follow-up at mental health and also primary care for medical issues. Patient verbalized understanding and agreed. -Social work to arrange for and conduct family meeting to ensure safety upon discharge and answer any questions/concerns. Social work also to arrange for patients follow up appointments with [facility] for psychiatric care along with follow up with primary care provider. -Patient counseled on abstaining from recreational drugs and marijuana and alcohol. Was informed/educated on the adverse effects on their physical and mental health. Patient verbally agreed and understood. Patient was offered substance abuse treatment however declined at this time. -Patient was instructed to return to the hospital or seek immediate medical care if their psychiatric or medical symptoms do worsen or reoccur. Allergies Allergy/AdvReac Type Severity Reaction Status Date / Time amoxicillin Allergy Mild Rash/Hives/thoat Verified 02/19/24 14:45 swells Laboratory Results WBC 9.3 k/uL (3.8-10.6) 02/20/24 10:37 RBC 4.63 m/uL (3.80-5.40) 02/20/24 10:37 Hgb 14.4 gm/dL (11.4-16.0) 02/20/24 10:37 Hct 44.5 % (34.0-46.0) 02/20/24 10:37 MCV 96.0 fL (80.0-100.0) 02/20/24 10:37 MCH 31.0 pg (25.0-35.0) 02/20/24 10:37 MCHC 32.3 g/dL (31.0-37.0) 02/20/24 10:37 RDW 12.2 % (11.5-15.5) 02/20/24 10:37 Plt Count 314 k/uL (150-450) 02/20/24 10:37 MPV 7.8 02/20/24 10:37 Neutrophils % 74 % 02/20/24 10:37 Lymphocytes % 18 % 02/20/24 10:37 Monocytes % 5 % 02/20/24 10:37 Eosinophils % 1 % 02/20/24 10:37 Basophils % 0 % 02/20/24 10:37 Neutrophils # 6.9 k/uL (1.3-7.7) 02/20/24 10:37 Lymphocytes # 1.7 k/uL (1.0-4.8) 02/20/24 10:37 Monocytes # 0.5 k/uL (0-1.0) 02/20/24 10:37 Eosinophils # 0.1 k/uL (0-0.7) 02/20/24 10:37 Basophils # 0.0 k/uL (0-0.2) 02/20/24 10:37 Sodium 135 mmol/L (137-145) L 02/20/24 10:37 Potassium 4.6 mmol/L (3.5-5.1) 02/20/24 10:37 Chloride 102 mmol/L (98-107) 02/20/24 10:37 Carbon Dioxide 27 mmol/L (22-30) 02/20/24 10:37 Anion Gap 6 mmol/L 02/20/24 10:37 BUN 9 mg/dL (7-17) 02/20/24 10:37 Creatinine 0.70 mg/dL (0.52-1.04) 02/20/24 10:37 Est GFR (CKD-EPI)AfAm >90 (>60 ml/min/1.73 sqM) 02/20/24 10:37 Est GFR (CKD-EPI)NonAf >90 (>60 ml/min/1.73 sqM) 02/20/24 10:37 Glucose 74 mg/dL (74-99) 02/20/24 10:[address] Glu mg/dL 94 mg/dL 02/20/24 10:37 Hemoglobin A1c 4.9 % (<=6.0) 02/20/24 10:37 Calcium 9.8 mg/dL (8.4-10.2) 02/20/24 10:37 Total Bilirubin 0.9 mg/dL (0.2-1.3) 02/20/24 10:37 AST 35 U/L (14-36) 02/20/24 10:37 ALT 37 U/L (4-34) H 02/20/24 10:37 Alkaline Phosphatase 66 U/L (38-126) 02/20/24 10:37 Total Protein 7.7 g/dL (6.3-8.2) 02/20/24 10:37 Albumin 4.8 g/dL (3.5-5.0) 02/20/24 10:37 TSH 1.060 mIU/L (0.465-4.680) 02/20/24 10:37 Urine Color Light Yellow 02/19/24 19:09 Urine Appearance Clear (Clear) 02/19/24 19:09 Urine pH 7.0 (5.0-8.0) 02/19/24 19:09 Ur Specific [place] 1.026 (1.001-1.035) 02/19/24 19:09 Urine Protein Negative (Negative) 02/19/24 19:09 Urine Glucose (UA) Negative (Negative) 02/19/24 19:09 Urine Ketones Negative (Negative) 02/19/24 19:09 Urine Blood Negative (Negative) 02/19/24 19:09 Urine Nitrite Negative (Negative) 02/19/24 19:09 Urine Bilirubin Negative (Negative) 02/19/24 19:09 Urine Urobilinogen <2.0 mg/dL (<2.0) 02/19/24 19:09 Ur Leukocyte Esterase Negative (Negative) 02/19/24 19:09 Urine HCG, Qual Not Detected (Not Detectd) 02/19/24 19:59 Urine Opiates Screen Not Detected (NotDetected) 02/19/24 14:42 Ur Oxycodone Screen Not Detected (NotDetected) 02/19/24 14:42 Urine Methadone Screen Not Detected (NotDetected) 02/19/24 14:42 Ur Barbiturates Screen Not Detected (NotDetected) 02/19/24 14:42 U Tricyclic Antidepress Not Detected (NotDetected) 02/19/24 14:42 Ur Phencyclidine Scrn Not Detected (NotDetected) 02/19/24 14:42 Ur Amphetamines Screen Not Detected (NotDetected) 02/19/24 14:42 U Methamphetamines Scrn Not Detected (NotDetected) 02/19/24 14:42 U Benzodiazepines Scrn Detected (NotDetected) H 02/19/24 14:42 Urine Cocaine Screen Detected (NotDetected) H 02/19/24 14:42 U Marijuana (THC) Screen Not Detected (NotDetected) 02/19/24 14:42 Influenza Type A (PCR) Not Detected (Not Detectd) 02/19/24 18:18 Influenza Type B (PCR) Not Detected (Not Detectd) 02/19/24 18:18 RSV (PCR) Not Detected (Not Detectd) 02/19/24 18:18 SARS-CoV-2 (PCR) Not Detected (Not Detectd) 02/19/24 18:18 Vital Signs Temp 98.1 F 02/24/24 06:35 Pulse 99 02/25/24 08:37 Resp 20 02/25/24 08:37 BP 131/78 02/25/24 08:37 Pulse Ox 100 02/21/24 06:57 FiO2 Patient Condition at Discharge: Stable Plan - Discharge Summary Discharge Rx Participant: Yes New Discharge Prescriptions: New Venlafaxine HCl ER [Effexor XR] 150 mg PO DAILY 30 Days #30 cap Nicotine 21Mg/24Hr Patch [Habitrol] 1 patch TRANSDERM DAILY 14 Days #14 patch Lurasidone [Latuda] 20 mg PO DAILY 30 Days #30 tab metFORMIN HCL [Glucophage] 500 mg PO TID 30 Days #0 tab Melatonin 6 mg PO HS 30 Days #60 tab Continue Estarylla 1 tab PO DAILY valACYclovir HCL [Valtrex] 1,000 mg PO DAILY Topiramate [Topamax] 25 mg PO DAILY Galcanezumab-Gnlm [Emgality Syringe] 120 mg SQ QMONTHLY Discontinued metFORMIN HCL [Glucophage] 500 mg PO BID Nitrofurantoin Monohyd/M-Cryst [Macrobid] 100 mg PO DAILY PRN PRN Reason: AFTER INTERCOURSE Venlafaxine HCl [Effexor] 75 mg PO BID ALPRAZolam [Xanax] 0.5 mg PO DAILY PRN PRN Reason: Anxiety Discharge Medication List valACYclovir HCL [Valtrex] 1,000 mg PO DAILY 03/14/21 [History] Estarylla 1 tab PO DAILY 06/11/22 [History] Galcanezumab-Gnlm [Emgality Syringe] 120 mg SQ QMONTHLY 02/19/24 [History] Topiramate [Topamax] 25 mg PO DAILY 02/19/24 [History] Lurasidone [Latuda] 20 mg PO DAILY 30 Days #30 tab 02/25/24 [Rx] Melatonin 6 mg PO HS 30 Days #60 tab 02/25/24 [Rx] Nicotine 21Mg/24Hr Patch [Habitrol] 1 patch TRANSDERM DAILY 14 Days #14 patch 02/25/24 [Rx] Venlafaxine HCl ER [Effexor XR] 150 mg PO DAILY 30 Days #30 cap 02/25/24 [Rx] metFORMIN HCL [Glucophage] 500 mg PO TID 30 Days #0 tab 02/25/24 [Rx] Follow up Appointment(s)/Referral(s): [facility] [Outside] - 02/27/24 1:30 pm Jaison Lamb MD [Primary Care Provider] - 1-2 days Activity/Diet/Wound Care/Special Instructions: Avoid the use of street drugs and alcohol. Take all medications as prescribed. When you are in need of refills on your medications, please contact your medical provider and/or outpatient psychiatrist/provider to have this done. Please go to your scheduled outpatient appointment for aftercare treatment. If symptoms return or become worse, call the crisis line at and/or go to the nearest emergency room for evaluation. National Suicide Hotline 988 Discharge Disposition: HOME SELF-CARE
== END 2024-02-25 12:45 | disposition home or self-care (01) | DRG 753 ==
LOC: EC 13:40 → 3MHU 19:46
PROVIDERS: ADMIT Psychiatry & Neurology Psychiatry; ATTEND Psychiatry & Neurology Psychiatry
DX: F31.30 Bipolar disorder, current episode depressed, mild or moderate severity, unspecified (principal); F17.200 Nicotine dependence, unspecified, uncomplicated; F14.10 Cocaine abuse, uncomplicated; F10.20 Alcohol dependence, uncomplicated; F31.81 Bipolar II disorder; F41.0 Panic disorder [episodic paroxysmal anxiety]; Z79.84 Long term (current) use of oral hypoglycemic drugs; Z79.899 Other long term (current) drug therapy; Z86.16 Personal history of COVID-19
CPT/HCPCS: 80053; 80306; 81003; 81025; 82075; 83036; 84443; 85025; 87636; 99285

== ENCOUNTER 2024-05-11 15:55 | Emergency (ER) | payer OTHER ==
--- NOTE | 2024-05-11 16:22 | ED ---
Chest Pain HPI - General Chief Complaint: Chest Pain Stated Complaint: Syncope, chest pain Time Seen by Provider: 05/11/24 16:21 Source: patient, RN notes reviewed Mode of arrival: ambulatory Limitations: no limitations - History of Present Illness Initial Comments: 23-year-old female presented the ER with a chief complaint of chest discomfort. She states that ongoing for the past 2 days. She does report radiation and numbness in her left upper extremity. Describes pain as a person sitting on her chest. Denies shortness of breath fevers or chills. Patient does vape. Patient denies any known cardiac history. Patient does state she has anxiety and believes this may be contributing to this. Denies any dizziness, lightheadedness, nausea, vomiting, abdominal pain or peripheral edema. - Related Data Home Medications Medication Instructions Recorded Confirmed valACYclovir HCL [Valtrex] 1,000 mg PO DAILY 03/14/21 02/19/24 Estarylla 1 tab PO DAILY 06/11/22 02/19/24 Galcanezumab-Gnlm [Emgality 120 mg SQ QMONTHLY 02/19/24 02/19/24 Syringe] Topiramate [Topamax] 25 mg PO DAILY 02/19/24 02/19/24 Previous Rx's Medication Instructions Recorded Lurasidone [Latuda] 20 mg PO DAILY 30 Days #30 tab 02/25/24 Melatonin 6 mg PO HS 30 Days #60 tab 02/25/24 Nicotine 21Mg/24Hr Patch [Habitrol] 1 patch TRANSDERM DAILY 14 Days 02/25/24 #14 patch Venlafaxine HCl ER [Effexor XR] 150 mg PO DAILY 30 Days #30 cap 02/25/24 metFORMIN HCL [Glucophage] 500 mg PO TID 30 Days #0 tab 02/25/24 Allergies Allergy/AdvReac Type Severity Reaction Status Date / Time amoxicillin Allergy Mild Rash/Hives/thoat Verified 05/11/24 16:09 sina Review of Systems ROS Statement: Those systems with pertinent positive or pertinent negative responses have been documented in the HPI. ROS Other: All systems not noted in ROS Statement are negative. EKG Findings - EKG Comments: EKG Findings:: EKG taken at 18: 10 showing a sinus rhythm with sinus arrhythmia. No acute ST segment or T wave abnormalities. Normal axis. Ventricular rate 81, DE interval 152, QRS duration 89, QT/QTc 373/411. Past Medical History Past Medical History: GERD/Reflux Additional Past Medical History / Comment(s): COVID-26 Aug 2020 History of Any Multi-Drug Resistant Organisms: None Reported Past Surgical History: Tonsillectomy Past Anesthesia/Blood Transfusion Reactions: Postoperative Nausea & Vomiting (PONV) Past Psychological History: Anxiety, Bipolar, Depression Smoking Status: Current every day smoker, Vaper Past Alcohol Use History: Occasional Past Drug Use History: None Reported, Cocaine - Past Family History Mother Family Medical History: No Reported History General Exam - General Exam Comments Initial Comments: Visual Physical Exam Vital signs reviewed General: Well-appearing, nontoxic, no acute distress. Head: Normocephalic, atraumatic Eyes: PERRLA, EOMI ENT: Airway patent Chest: Nonlabored breathing Skin: No visual rash, normal skin tone Neuro: Alert and oriented 3 Musculoskeletal: No gross abnormalities Limitations: no limitations General appearance: alert, in no apparent distress Respiratory exam: Present: normal lung sounds bilaterally. Absent: respiratory distress, wheezes, rales, rhonchi, stridor Cardiovascular Exam: Present: regular rate, normal rhythm, normal heart sounds. Absent: systolic murmur, diastolic murmur, rubs, gallop, clicks Extremities exam: Present: normal inspection, full ROM, normal capillary refill. Absent: tenderness, pedal edema, joint swelling, calf tenderness Neurological exam: Present: alert, oriented X3, CN II-XII intact Skin exam: Present: warm, dry, intact, normal color. Absent: rash Course Vital Signs 05/11/24 05/11/24 16:05 18:41 Temperature 98.1 F 97.9 F Pulse Rate 98 75 Respiratory 18 16 Rate Blood Pressure 124/91 115/72 O2 Sat by Pulse 99 99 Oximetry Chest Pain MDM - MDM I performed the quick note portion of this chart. Electronically signed by Edilberto Payne PA-C Was pt. sent in by a medical professional or institution ([facility], [employer], urgent care, hospital, or [facility]...) When possible be specific @ -No Did you speak to anyone other than the patient for history (EMS, parent, family, police, friend...)? What history was obtained from this source @ -No Did you review nursing and triage notes (agree or disagree)? Why? @ -I reviewed and agree with nursing and triage notes Were old charts reviewed (outside hosp., previous admission, EMS record, old EKG, old radiological studies, urgent care reports/EKG's, [facility] records)? Report findings @ -No old charts were reviewed Differential Diagnosis (chest pain, altered mental status, abdominal pain women, abdominal pain men, vaginal bleeding, weakness, fever, dyspnea, syncope, headache, dizziness, GI bleed, back pain, seizure, CVA, palpatations, mental health, musculoskeletal)? @ -Differential Chest Pain: Stable Angina, Unstable Angina, STEMI, NSTEMI Aortic Dissection, Pneumothorax, Musculoskeletal, Esophageal Spasm GERD, Cholecystitis, Pancreatitis, Zoster, this is not meant to be an all-inclusive list. EKG interpreted by me (3pts min.). @ -As above X-rays interpreted by me (1pt min.). @ -Chest x-ray interpreted by me negative for acute cardiopulmonary process. CT interpreted by me (1pt min.). @ -None done U/S interpreted by me (1pt. min.). @ -None done What testing was considered but not performed or refused? (CT, X-rays, U/S, labs)? Why? @ -Patient offered admission for serial troponins and cardiology consult, patient declined. What meds were considered but not given or refused? Why? @ -None Did you discuss the management of the patient with other professionals (professionals i.e. , PA, NUT CHOPPER, lab, RT, psych nurse, protective services social worker, drawing machine operator, teacher, airconditioning drafting officer, transplant case manager)? Give summary @ -No Was smoking cessation discussed for >3mins.? @ -I discussed smoking cessation for greater than 3 minutes. The risk of smoking were discussed with the patient including but not limited to risks of cancer, stroke, coronary artery disease and COPD. Also discussed with patient were multiple methods of quitting smoking. Lastly we discussed the financial cost of smoking. Was critical care preformed (if so, how long)? @ -No Were there social determinants of health that impacted care today? How? (Homelessness, low income, unemployed, alcoholism, drug addiction, transportation, low edu. Level, literacy, decrease access to med. care, [facility], rehab)? @ -No Was there de-escalation of care discussed even if they declined (Discuss DNR or withdrawal of care, Hospice)? DNR status @ -No What co-morbidities impacted this encounter? (DM, HTN, Smoking, COPD, CAD, Cancer, CVA, ARF, Chemo, Hep., AIDS, mental health diagnosis, sleep apnea, morbid obesity)? @ -Smoker, anxiety Was patient admitted / discharged? Hospital course, mention meds given and route, prescriptions, significant lab abnormalities, going to OR and other pertinent info. @ -Discharge. 23-year-old female presented to the ER with a chief complaint of chest discomfort. Laboratory studies initially ordered as a quick note. History and physical exam completed. Vitals upon arrival remarkable for temperature 98.1, heart rate 98, respiratory rate 18, blood pressure 124/91, oxygen saturation 99% on room air. Patient in no signs of acute distress and nontoxic-appearing. Normal heart sounds. No peripheral edema. No acute neurological findings on exam. Laboratory studies obtained unremarkable. Troponin undetectable. TSH 0.806. EKG showing sinus rhythm with a sinus arrhythmia no acute evidence of infarct or ischemia. Patient received 1 L of IV fluids for symptom control in the ER. HEART score 1. Patient was offered admission for cardiac rule out, patient declined. Symptoms believed to have components of anxiety. I advised close follow-up with PCP in the next 1 to 2 days. Strict return parameters discussed. Patient discharged in stable condition. Patient verbally expressed understanding and agreement with care plan. Case discussed with ED attending, Dr. Santo. Undiagnosed new problem with uncertain prognosis? @ -No Drug Therapy requiring intensive monitoring for toxicity (Heparin, Nitro, Insulin, Cardizem)? @ -No Were any procedures done? @ -No Diagnosis/symptom? @ -Atypical chest pain Acute, or Chronic, or Acute on Chronic? @ -Acute Uncomplicated (without systemic symptoms) or Complicated (systemic symptoms)? @ -Uncomplicated Side effects of treatment? @ -No Exacerbation, Progression, or Severe Exacerbation? @ -No Poses a threat to life or bodily function? How? (Chest pain, [place], [place], pneumonia, PE, COPD, DKA, ARF, appy, cholecystitis, CVA, Diverticulitis, Homicidal, Suicidal, threat to staff... and all critical care pts) @ -Low likelihood at this time Disposition Clinical Impression: Atypical chest pain Disposition: HOME SELF-CARE Condition: Stable Instructions (If sedation given, give patient instructions): Chest Pain (ED) Additional Instructions: Please follow-up PCP next 1 to 2 days. Return to the ER for any new or worsening concerns. Is patient prescribed a controlled substance at d/c from ED?: No Referrals: Jaison Lamb MD [Primary Care Provider] - 1-2 days Time of Disposition: 18:45
[2024-05-11 16:54] LABS: Basophils % (A) 0 %; Eosinophils % (A) 1 %; HCT 41.1 % (34.0-46.0); Lymphocytes # (A) 1.9 k/uL (1.0-4.8); Lymphocytes % (A) 25 %; MCH 31.2 pg (25.0-35.0); MCV 91.9 fL (80.0-100.0); Mean Platelet Volume 7.3; Monocytes # (A) 0.4 k/uL (0-1.0); Monocytes % (A) 5 %; Neutrophils # (A) 5.1 k/uL (1.3-7.7); Neutrophils % (A) 67 %; Platelet Count 409 k/uL (150-450); RBC 4.47 m/uL (3.80-5.40); RDW 12.1 % (11.5-15.5); WBC 7.6 k/uL (3.8-10.6)
[2024-05-11 17:03] LABS: Partial Thromboplastin Time 24.5 sec (22.0-30.0); Prothrombin Time 10.8 sec (10.0-12.5)
--- NOTE | 2024-05-11 17:04 | XR ---
EXAMINATION TYPE: XR chest 2V DATE OF EXAM: 05/11/2024 4:56 PM CLINICAL INDICATION: Female, 23 years old with history of Chest Pain; H COMPARISON: Chest radiographs from TECHNIQUE: XR chest 2V Frontal view of the chest. FINDINGS: Lungs/Pleura: There is no evidence of pleural effusion, focal consolidation, or pneumothorax. Pulmonary vascularity: Unremarkable. Heart/mediastinum: Cardiomediastinal silhouette is unremarkable. Musculoskeletal: No acute osseous pathology. IMPRESSION: No acute cardiopulmonary disease/process.
[2024-05-11 17:07] LABS: ALT 25 U/L (4-34); AST 30 U/L (14-36); African American GFR (CKD) >90 (>60 ml/min/1.73 sqM); Alkaline Phosphatase 66 U/L (38-126); Anion Gap 7 mmol/L; Blood Urea Nitrogen 9 mg/dL (7-17); Calcium 10.5 mg/dL (8.4-10.2); Carbon Dioxide 27 mmol/L (22-30); Chloride 105 mmol/L (98-107); Glucose 88 mg/dL (74-99); Magnesium 2.1 mg/dL (1.6-2.3); Non-African American GFR(CKD) >90 (>60 ml/min/1.73 sqM); Sodium 139 mmol/L (137-145); Total Bilirubin 0.5 mg/dL (0.2-1.3); Total Protein 7.8 g/dL (6.3-8.2)
[2024-05-11] MEDS: SODIUM CHLORIDE 0.9% 1,000 ML IV STA (17:53)
[2024-05-11 18:43] VITALS: BP 115/72; PULSE 75; RESP 16; TEMP 97.9
== END 2024-05-11 18:59 | disposition home or self-care (01) ==
LOC: EC 15:55
DX: R07.89 Other chest pain (principal); F17.290 Nicotine dependence, other tobacco product, uncomplicated; Z86.16 Personal history of COVID-19; Z88.0 Allergy status to penicillin
CPT/HCPCS: 36415; 71046; 80053; 83735; 84443; 84484; 85025; 85610; 85730; 93005; 96360; 99285; 99406

== ENCOUNTER 2024-07-19 19:21 | Emergency (ER) | payer OTHER ==
[2024-07-19 19:27] VITALS: BP 135/84; PULSE 127; RESP 18; TEMP 98.3
[2024-07-19] MEDS ORDERED: SODIUM CHLORIDE 0.9% 1,000 ML IV ONE (19:30)
[2024-07-19] MEDS ORDERED: LORazepam 2 MG/ML INJ IV STA (19:30)
--- NOTE | 2024-07-19 19:43 | ED ---
Arrhythmia/Palpitations HPI - General Chief Complaint: Arrhythmia/Palpitations Stated Complaint: Tachy Time Seen by Provider: 07/19/24 19:29 Source: patient, RN notes reviewed Mode of arrival: ambulatory Limitations: no limitations - History of Present Illness Initial Comments: 23-year-old female presents emergency department via EMS complaint of chest d iscomfort, palpitations. Patient states that she had sudden onset of symptoms today. Patient states that she did have some recent psychiatric medication switch from. She was started on Effexor. She denies being suicidal homicidal denies any illicit drug use and alcohol abuse. Patient states she just feels like her heart is racing that she has been running. She denies any abdominal pain denies any chance of . - Related Data Home Medications Medication Instructions Recorded Confirmed valACYclovir HCL [Valtrex] 1,000 mg PO DAILY 03/14/21 02/19/24 Estarylla 1 tab PO DAILY 06/11/22 02/19/24 Galcanezumab-Gnlm [Emgality 120 mg SQ QMONTHLY 02/19/24 02/19/24 Syringe] Topiramate [Topamax] 25 mg PO DAILY 02/19/24 02/19/24 Previous Rx's Medication Instructions Recorded Lurasidone [Latuda] 20 mg PO DAILY 30 Days #30 tab 02/25/24 Melatonin 6 mg PO HS 30 Days #60 tab 02/25/24 Nicotine 21Mg/24Hr Patch [Habitrol] 1 patch TRANSDERM DAILY 14 Days 02/25/24 #14 patch Venlafaxine HCl ER [Effexor XR] 150 mg PO DAILY 30 Days #30 cap 02/25/24 metFORMIN HCL [Glucophage] 500 mg PO TID 30 Days #0 tab 02/25/24 Allergies Allergy/AdvReac Type Severity Reaction Status Date / Time amoxicillin Allergy Mild Rash/Hives/thoat Verified 07/19/24 19:27 sina Review of Systems ROS Statement: Those systems with pertinent positive or pertinent negative responses have been documented in the HPI. ROS Other: All systems not noted in ROS Statement are negative. Past Medical History Past Medical History: GERD/Reflux Additional Past Medical History / Comment(s): COVID-26 Aug 2020 History of Any Multi-Drug Resistant Organisms: None Reported Past Surgical History: Tonsillectomy Past Anesthesia/Blood Transfusion Reactions: Postoperative Nausea & Vomiting (PONV) Past Psychological History: Anxiety, Bipolar, Depression Smoking Status: Current every day smoker, Vaper Past Alcohol Use History: Occasional Past Drug Use History: None Reported, Cocaine - Past Family History Mother Family Medical History: No Reported History General Exam Limitations: no limitations General appearance: alert, in no apparent distress Head exam: Present: atraumatic, normocephalic, normal inspection Eye exam: Present: normal appearance, PERRL, EOMI. Absent: scleral icterus, conjunctival injection, periorbital swelling ENT exam: Present: normal exam, normal oropharynx, mucous membranes moist Neck exam: Present: normal inspection, full ROM. Absent: tenderness, meningismus, lymphadenopathy Respiratory exam: Present: normal lung sounds bilaterally. Absent: respiratory distress, wheezes, rales, rhonchi, stridor Cardiovascular Exam: Present: normal rhythm, tachycardia, normal heart sounds. Absent: systolic murmur, diastolic murmur, rubs, gallop, clicks GI/Abdominal exam: Present: soft, normal bowel sounds. Absent: distended, tenderness, guarding, rebound, rigid Neurological exam: Present: alert, oriented X3 Skin exam: Present: warm, dry, intact, normal color. Absent: rash Course Vital Signs 07/19/24 19:25 Temperature 98.3 F Pulse Rate 127 H Respiratory 18 Rate Blood Pressure 135/84 O2 Sat by Pulse 100 Oximetry EKG Findings - EKG Comments: EKG Findings:: EKG performed at 19: 41 sinus tachycardia with a rate of 127 TX 128 QRS 88 QT/QTc 335/410 - EKG Results: EKG: interpreted by COLBY Medical Decision Making - Medical Decision Making Was pt. sent in by a medical professional or institution (, PA, AUTOMOTIVE FLEET SUPERVISOR, urgent care, hospital, or long term...) When possible be specific @ -No Did you speak to anyone other than the patient for history (EMS, parent, family, police, friend...)? What history was obtained from this source @ -No Did you review nursing and triage notes (agree or disagree)? Why? @ -I reviewed and agree with nursing and triage notes Were old charts reviewed (outside hosp., previous admission, EMS record, old EKG, old radiological studies, urgent care reports/EKG's, long term records)? Report findings @ -No old charts were reviewed Differential Diagnosis (chest pain, altered mental status, abdominal pain women, abdominal pain men, vaginal bleeding, weakness, fever, dyspnea, syncope, headache, dizziness, GI bleed, back pain, seizure, CVA, palpatations, mental health, musculoskeletal)? @Differential Palpitations Ventricular arrhythmias, atrial arrhythmias, myocardial infarction, anemia, thyrotoxicosis, electrolyte imbalance, hypokalemia, pulmonary embolism, pu lmonary disease, drugs, alcohol, anxiety, stress.... This is not meant to be an all-inclusive list. EKG interpreted by me (3pts min.). @ -As above X-rays interpreted by me (1pt min.). @ -None done CT interpreted by me (1pt min.). @ -None done U/S interpreted by me (1pt. min.). @ -None done What testing was considered but not performed or refused? (CT, X-rays, U/S, labs)? Why? @ -None What meds were considered but not given or refused? Why? @ -None Did you discuss the management of the patient with other professionals (professionals i.e. , PA, AUTOMOTIVE FLEET SUPERVISOR, lab, RT, psych nurse, social media coordinator, president practicing urologist, teacher, community cultural development officer, caser in)? Give summary @ -No Was smoking cessation discussed for >3mins.? @ -No Was critical care preformed (if so, how long)? @ -No Were there social determinants of health that impacted care today? How? (Homelessness, low income, unemployed, alcoholism, drug addiction, transportation, low edu. Level, literacy, decrease access to med. care, shelter, rehab)? @ -No Was there de-escalation of care discussed even if they declined (Discuss DNR or withdrawal of care, Hospice)? DNR status @ -No What co-morbidities impacted this encounter? (DM, HTN, Smoking, COPD, CAD, [place] ncer, CVA, ARF, Chemo, Hep., AIDS, mental health diagnosis, sleep apnea, morbid obesity)? @ -None Was patient admitted / discharged? Hospital course, mention meds given and route, prescriptions, significant lab abnormalities, going to OR and other pertinent info. @ -AMA patient refused all laboratory studies and left foot in the waiting room Undiagnosed new problem with uncertain prognosis? @ -No Drug Therapy requiring intensive monitoring for toxicity (Heparin, Nitro, Insulin, Cardizem)? @ -No Were any procedures done? @ -No Diagnosis/symptom? @Palpitations tachycardia Acute, or Chronic, or Acute on Chronic? @ -Acute Uncomplicated (without systemic symptoms) or Complicated (systemic symptoms)? @ -Complicated Side effects of treatment? @ -No Exacerbation, Progression, or Severe Exacerbation? @ -No Poses a threat to life or bodily function? How? (Chest pain, [place], [place], pneumonia, PE, COPD, DKA, ARF, appy, cholecystitis, CVA, Diverticulitis, Homicidal, Suicidal, threat to staff... and all critical care pts) @ -No - Lab Data Lab Results 07/19/24 07/19/24 Range/Units 19:43 19:43 Urine Color Colorless Urine Appearance Clear (Clear) Urine pH 6.5 (5.0-8.0) Ur Specific [place] 1.001 (1.001-1.035) Urine Protein Negative (Negative) Urine Glucose (UA) Negative (Negative) Urine Ketones Negative (Negative) Urine Blood Negative (Negative) Urine Nitrite Negative (Negative) Urine Bilirubin Negative (Negative) Urine Urobilinogen <2.0 (<2.0) mg/dL Ur Leukocyte Esterase Negative (Negative) Urine HCG, Qual Not Detected (Not Detectd) Urine Opiates Screen Not Detected (NotDetected) Ur Oxycodone Screen Not Detected (NotDetected) Urine Methadone Screen Not Detected (NotDetected) Ur Barbiturates Screen Not Detected (NotDetected) U Tricyclic Antidepress Not Detected (NotDetected) Ur Phencyclidine Scrn Not Detected (NotDetected) Ur Amphetamines Screen Not Detected (NotDetected) U Methamphetamines Scrn Not Detected (NotDetected) U Benzodiazepines Scrn Not Detected (NotDetected) Urine Cocaine Screen Not Detected (NotDetected) U Marijuana (THC) Screen Not Detected (NotDetected) Disposition Clinical Impression: Palpitations Disposition: LEFT AGAINST MEDICAL ADVICE Referrals: Jaison Lamb MD [Primary Care Provider] - 1-2 days Time of Disposition: 20:22
[2024-07-19 20:03] LABS: Appearance,Urine Clear (Clear); Bilirubin,Urine Negative (Negative); Blood,Urine Negative (Negative); Color,Urine Colorless; Glucose,Urine (UA) Negative (Negative); Ketones,Urine Negative (Negative); Leukocyte Esterase,Urine Negative (Negative); Nitrite,Urine Negative (Negative); PH, Urine 6.5 (5.0-8.0); Protein,Urine Negative (Negative); Specific Gravity,Urine 1.001 (1.001-1.035); Urobilinogen,Urine <2.0 mg/dL (<2.0)
[2024-07-19 20:14] LABS: Amphetamine Screen,Urine Not Detected (NotDetected); Barbiturate Screen,Urine Not Detected (NotDetected); Benzodiazepines Screen,Urine Not Detected (NotDetected); Cocaine Screen,Urine Not Detected (NotDetected); Methadone Screen, Urine Not Detected (NotDetected); Opiate Screen,Urine Not Detected (NotDetected); Oxycodone Screen, Urine Not Detected (NotDetected); Phencyclidine Screen,Urine Not Detected (NotDetected); Tricyclic Antidepressant,Urine Not Detected (NotDetected); Urn Cannabinoid Scrn Not Detected (NotDetected)
== END 2024-07-19 20:31 | disposition left against medical advice (07) ==
LOC: EC 19:21
DX: R00.2 Palpitations (principal); F17.290 Nicotine dependence, other tobacco product, uncomplicated; Z86.16 Personal history of COVID-19; Z53.29 Procedure and treatment not carried out because of patient's decision for other reasons
CPT/HCPCS: 80306; 81003; 81025; 93005; 99285